=== PATIENT | female | born 1955 | race Caucasian/White ===

== ENCOUNTER → 2021-08-08 | Outpatient (CLI) | payer MEDICARE, SELFPAY ==
--- NOTE | 2021-08-08 13:22 | US_ITS ---
STUDY: RENAL ULTRASOUND - COMPLETE REASON FOR EXAM: Female, 66 years old. STONES ABD AND BACK PAIN TECHNIQUE: Ultrasound evaluation of the kidneys was performed with real-time and static aguila-scale imaging. COMPARISON: None. FINDINGS: RIGHT KIDNEY: Normal location of the right kidney, which is normal in size. The right kidney measures 10 x 5.3 cm. There is a normal cortex of the right kidney. The renal cortex measures 1 cm. There is no right renal mass or cyst. There are no right renal calculi. There is no right hydronephrosis. DISTAL RIGHT URETER: There is non-visualization of the distal right ureter. There is no demonstrated right ureterovesical junction calculus. There is a visualized right ureteral jet. LEFT KIDNEY: Normal location of the left kidney, which is normal in size. The left kidney measures 10.6 x 6.2 cm. There is a normal cortex of the left kidney. The renal cortex measures 1.4 cm. There is no left renal mass or cyst. There are no left renal calculi. There is no left hydronephrosis. DISTAL LEFT URETER: There is non-visualization of the distal left ureter. There is no demonstrated left ureterovesical junction calculus. There is a visualized left ureteral jet. AORTA: There is obscuration of the abdominal aorta by overlying bowel gas I.V.C.: The IVC is obscured. BLADDER: The distended urinary bladder has a volume of 213 ml. There is a normal wall thickness of the distended urinary bladder. There is no demonstrated mass within the urinary bladder. There are no demonstrated bladder calculi. US/Kidney and Bladder IMPRESSION: Normal ultrasound of the kidneys and urinary bladder. Electronically Signed: Clark Kathleen MD at 21:34 EDT ,
== END | disposition home or self-care (01) ==
PROVIDERS: Referring Provider Urology; Visit Provider Urology
DX: N20.0 Calculus of kidney (principal); R10.30 Lower abdominal pain, unspecified; M54.9 Dorsalgia, unspecified
CPT/HCPCS: 76770

== ENCOUNTER → 2024-06-30 | Outpatient (CLI) | payer MEDICARE, SELFPAY ==
--- NOTE | 2024-06-30 12:41 | US_ITS ---
PROCEDURE: KIDNEY AND BLADDER 06/30/2024 REASON FOR EXAM: STONES, LT FLANK PAIN TECHNIQUE: Bilateral renal ultrasound. COMPARISON: Prior study dated August 08, 2021. FINDINGS: Kidneys: Bilateral renal calculi. Meridian: No hydronephrosis. Cysts or Masses: No cysts or large solid renal masses. RIGHT Kidney Size: 10 cm x 4.5 cm x 4.7 cm Volume: 382.3 mL Cortical Thickness (if discernible): 1.3 cm (>6mm is normal) There are 3 nonobstructive intrarenal calculi. The largest measures 5 mm. LEFT Kidney Size: 10.3 cm x 5 cm x 5.6 cm Volume: 153.08 mL Cortical Thickness (if discernible): 1.6 cm (>6mm is normal) There is an 8 mm nonobstructive calculus. US/Kidney and Bladder IMPRESSION: Small bilateral nonobstructive intrarenal calculi. Reading Location: [id number]
== END | disposition home or self-care (01) ==
LOC: US 12:37
PROVIDERS: Referring Provider Urology; Visit Provider Urology
DX: N20.0 Calculus of kidney (principal); R10.9 Unspecified abdominal pain
CPT/HCPCS: 76770

== ENCOUNTER → 2024-07-24 | Outpatient (CLI) | payer MEDICARE, SELFPAY ==
--- NOTE | 2024-07-24 18:08 | CT_ITS ---
PROCEDURE: ABDOMEN/PELVIS WITHOUT CONT 07/24/2024 REASON FOR EXAM: KIDNEY STONES TECHNIQUE: Abdomen and pelvis CT without intravenous contrast. Noncontrast technique limits evaluation of the abdominal and pelvic viscera. Coronal and Sagittal reconstruction series were provided. One or more dose reduction techniques were used (e.g., Automated exposure control, adjustment of the mA and/or kV according to patient size, use of iterative reconstruction technique). PATIENT PREPARATION: Per protocol ORAL CONTRAST TYPE: None. COMPARISON: None FINDINGS: Limited sections of the lung bases demonstrate no focal pulmonary mass. The liver, spleen, pancreas, both kidneys, and both adrenal glands demonstrate no acute findings. 2 mm stone within the right UVJ which may be partially obstructive or nonobstructive. No significant upstream hydronephrosis is noted. Scattered nonobstructive stones are noted within bilateral kidneys. Hepatomegaly to 18.3 cm. The gallbladder is unremarkable. The stomach is unremarkable. The aorta and IVC demonstrate no acute findings. Mild atherosclerosis of the abdominal vasculature. There is no free air, free fluid or intestinal obstruction. The small bowel loops are not dilated. The appendix is not clearly identified, although there are no secondary signs of appendicitis. No bowel obstruction. The pelvic structures are intact. There is no solid pelvic mass. The urinary bladder is nondistended. Visualized osseous structures demonstrate no acute abnormality. Moderate to extensive multilevel degenerative changes of the lumbar spine. Small fat containing umbilical hernia. CT/Abdomen/Pelvis without Cont IMPRESSION: 2 mm stone within the right UVJ which may be partially obstructive or nonobstru ctive. No significant upstream hydronephrosis is noted at this time. Scattered nonobstructive stones are noted within bilateral kidneys. Reading Location: [id number]
--- OUTSIDE RECORDS SUMMARY | 2024-07-24 22:17 | XMS RPT_ITS | CCD ---
Author Organization [facility] Care Team Providers Care Slip Cover Cutter Name Role Phone Mimi Weiss MD Primary Care Provider Aneudy Yeh MD, Nayana Sales Primary Care Provider Aneudy Yeh MD, Nayana Sales Primary Care Provider Aneudy Yeh MD, Nayana Sales Primary Care Provider [phone] LISA GARCÍA Attending Unavailable AL SAIF, ALAA Primary Care Unavailable Nayana Hoang MD Primary Care Provider [phone] AL GABBY, ALAA Primary Care Provider [phone] Dr. Guerda Null MD Attending Provider Dr. Guerda Null MD Referring Provider MIMI IVY Attending Unavailable AL SAIF, ALAA MAHDI Primary Care Unavailable SELF Referring Unavailable AL SAIF, ALAA MAHDI Primary Care Unavailable JIM WASHINGTON JR Attending Unavailable Guerda Null Referring Unavailable Guerda Null Attending Unavailable KALLASH, MAHMOYOLIS Primary Care Unavailable EUGENIAASH, MAHMOUD Primary Care Unavailable Guerda Null Referring Unavailable Guerda Null Attending Unavailable Allergies Allergy Classification Reported Allergen(s) Allergy Type Date of Onset Reaction(s) Facility (9 sources) Non-steroidal anti-inflammatory agent; Translations: [NSAIDS (NON-STEROIDAL ANTI-INFLAMMATORY DRUG)] Drug Allergy [address] [facility] (20 sources) Sulfonamides (Antibiotic); Translations: [SULFA (SULFONAMIDE ANTIBIOTICS)] Drug Allergy [address] [facility] (20 sources) Aspirin; Translations: [ASPIRIN] Drug Allergy 2 Other: See Comments [facility] (20 sources) Morphine; Translations: [MORPHINE] Drug Allergy 2 Other: See Comments [facility] (20 sources) Non-steroidal anti-inflammatory agent Drug Allergy [address] [facility] (20 sources) Adhesive Tape-Silicones; Translations: [ADHESIVE TAPE-SILICONES] Drug Allergy [address] [facility] (20 sources) HMG-CoA reductase inhibitor; Translations: [OEMLIZY-GED-HFK REDUCTASE INHIBITORS] Drug Allergy 3 GI Upset, Myalgia [facility] (20 sources) colesevelam; Translations: [COLESEVELAM] Drug Allergy [address] [facility] (20 sources) ezetimibe; Translations: [EZETIMIBE] Drug Allergy 6 Other: See Comments [facility] (20 sources) Fenofibrate; Translations: [FENOFIBRATE NANOCRYSTALLIZED] Drug Allergy [address] [facility] Medications Current Medications Medication Drug Class(es) Dates Sig (Normalized) Sig (Original) amoxicillin 500 mg oral tablet (1 source) Penicillin-class Antibacterial Start: 07-03-2022 End: 07-10-2022 take 1 tablet by mouth three times daily Amoxicillin 500 mg tablet Indications: URI, acute Take 1 tablet by mouth three times daily for 7 days. 21 tablet 0 07/03/2022 07/10/2022 Active Comment on above: Take 1 tablet by [facility] three times daily for 7 days. amoxicillin 875 mg / clavulanate 125 mg oral tablet (7 sources) Penicillin-class Antibacterial Start: 06-05-2024 End: 06-12-2024 take 1 tablet by mouth every twelve hours amoxicillin-clavu lanate potassium (AUGMENTIN) 875-125 mg per tablet Indications: Bacterial sinusitis Take 1 tablet by mouth every 12 hours for 7 days. 14 tablet 06/05/2024 06/12/2024 Active Start: 03-24-2023 End: 04-03-2023 take 1 tablet by mouth twice daily amoxicillin-clavulanate potassium (AUGMENTIN) 875-125 mg per tablet Indications: Sinobronchitis Take 1 tablet by mouth two times a day for 10 days. 20 tablet 0 03/24/2023 04/03/2023 Active Start: 04-10-2022 End: 04-20-2022 take 1 tablet by mouth every twelve hours amoxicillin-clavulanic acid (AUGMENTIN) 875-125 mg per tablet Take 1 tablet by mouth every 12 hours for 10 days. 20 tablet 0 04/10/2022 04/20/2022 Comment on above: Take 1 tablet by julisa th every 12 hours for 10 days. Take 1 tablet by julisa th two times a day for 10 days. bacillus coagulans [id number] unt / inulin 250 mg oral capsule (20 sources) take 1 tablet by mouth once daily at bedtime Bacillus coagulans-Inulin (PROBIOTIC WITH PREBIOTIC) 1 billion-250 cell-mg cap Take 1 tablet by mouth daily at bedtime. Active Bacillus coagula ns-Inulin (PROBIOTIC WITH PREBIOTIC) 1 billion-250 cell-mg cap Take by mouth. 0 Active Comment on above: Take by mouth. Take 1 tablet by julisa th daily at bedtime. benzonatate 200 mg oral capsule (6 sources) Non-narcotic Antitussive Start: 5 take 1 capsule by mouth three times daily as needed Benzonatate 200 mg capsule Indications: Influenza Take 1 capsule by mouth three times a day as needed. 30 capsule 04/07/2024 Active buPROPion hydrochloride 100 mg oral tablet (20 sources) Aminoketone Start: 4 End: 4 take 1 tablet by mouth twice daily buPROPion (WELLBUTRIN) 100 mg tablet Indications: Major depressive disorder, recurrent severe without psychotic features (HCC) TAKE 1 TABLET BY MOUTH TWICE DAILY 180 tablet 3 10/16/2023 Active Start: 03-20-2022 End: 03-20-2022 take 1 tablet by mouth twice daily buPROPion (WELLBUTRIN) 100 mg tablet Indications: Anxiety with depression Take 1 tablet by mouth twice daily. 180 tablet 3 03/20/2022 Active Comment on above: Take 100 mg by mouth twice daily. Take 1 tablet by julisa th twice daily. Take 1 tablet by julisa th two times a day. cyclobenzaprine hydrochloride 10 mg oral tablet (20 sources) Muscle Relaxant Start: 04-02-19 24 End: 01-05-20 25 take 1 tablet by mouth three times daily as needed cyclobenzaprine (FLEXERIL) 10 mg tablet Indications: Radiculopathy, lumbar region Take 1 tablet by mouth three times a day as needed. 90 tablet 2 02/25/2024 Active Start: 02-21-2022 End: 08-20-2022 take 1 tablet by mouth three times daily as needed cyclobenzaprine (FLEXERIL) 10 mg tablet Indications: Radiculopathy, lumbar region Take 1 tablet by mouth three times daily as needed. 90 tablet 2 02/21/2022 08/20/2022 Active End: 09-19-2021 take 1 tablet by mouth every eight hours as needed cyclobenzaprine (FLEXERIL) 10 mg tablet Take 10 mg by mouth three times daily as needed. 0 09/19/2021 Discontinued Comment on above: Take 10 mg by mouth three times daily as needed. Take 1 tablet by julisa th three times daily as needed. Take 1 tablet by julisa th three times a day as needed. 12 hr dextromethorphan hydrobromide 30 mg / guaiFENesin 600 mg extended release oral tablet (1 source) Uncompetitive U-zwemgw-G-aspartate Receptor Antagonist, Sigma-1 Agonist Start: End: take 1 tablet by mouth twice daily dextromethorphan-guai FENesin (MUCINEX DM) 30-600 mg per tablet Indications: Sinobronchitis Take 1 tablet by mouth two times a day for 10 days. 20 tablet 0 03/24/2023 04/03/2023 Active Comment on above: Take 1 tablet by julisa th two times a day for 10 days. diclofenac sodium 0.01 mg/mg topical gel (20 sources) Nonsteroidal Anti-inflammatory Drug diclofenac sodium 1 % kit Apply to affected area as needed. FOR ARTHRITIS Active Comment on above: Apply to affected ar ea. Apply to affected ar ea as needed. FOR ARTHRITIS ergocalciferol 1.25 mg oral capsule (20 sources) Provitamin D2 Compound Start: End: take 1 capsule by mouth every other week VITAMIN D2 1,250 mcg (50,000 unit) capsule Indications: Vitamin D deficiency TAKE 1 CAPSULE BY MOUTH EVERY 2 WEEKS 8 capsule 2 05/23/2024 Active Start: 04-20-2022 End: 06-21-2023 take 1 capsule by mouth once VITAMIN D2 1,250 mcg (50, 000 unit) capsule Indications: Vitamin D deficiency TAKE 1 CAPSULE BY MOUTH ONCE WEEKLY EVERY SUNDAY 13 capsule 3 06/21/2022 06/21/2023 Discontinued Start: 08-15-2021 End: 08-20-2022 take 1 capsule by mouth every other week ergocalciferol 50,000 unit capsule (VITAMIN D2, DRISDOL) Indications: Vitamin D deficiency Take 1 capsule by mouth every 2 weeks. 6 capsule 1 02/21/2022 04/19/2022 Discontinued Start: 08-12-2021 End: 11-10-2021 take 1 capsule by mouth every week ergocalciferol 50,000 unit capsule (VITAMIN D2, DRISDOL) Take 1 capsule by mouth one time a week. 13 capsule 0 08/12/2021 08/15/2021 Discontinued Comment on above: Take 50,000 Units by mouth once each week. Take 1 capsule by mo ut one time a week. Take 1 capsule by mo ut every 2 weeks. Take 1 capsule by mo ut one time a week. Takes every Sunday TAKE 1 CAPSULE BY MO UT ONCE WEEKLY EVERY SUNDAY liothyronine sodium 0.005 mg oral tablet (20 sources) l-Triiodothyronin e Start: take 3 tablets by mouth once daily in the morning liothyronine (CYTOMEL) 5 mcg tablet TAKE 3 TABLETS BY MOUTH DAILY IN THE MORNING 300 tablet 2 06/27/2024 Active Start: 02-07-2023 End: 06-27-2024 take 3 tablets by mouth once daily in the morning liothyronine (CYTOMEL) 5 mcg tablet TAKE 3 TABLETS BY MOUTH DAILY IN THE MORNING 300 tablet 2 10/18/2023 06/27/2024 Discontinued Start: 10-03-2021 End: 04-01-2022 take 3 tablets by mouth once daily in the morning liothyronine (CYTOMEL) 5 mcg tablet TAKE 3 TABLETS BY MOUTH DAILY IN THE MORNING 270 tablet 3 03/17/2022 Active End: 09-30-2021 take 1 tablet by mouth once daily liothyronine (CYTOMEL) 5 mcg tablet Take 5 mcg by mouth once daily. 0 09/30/2021 Discontinued Comment on above: Take 5 mcg by mouth once daily. Take 3 tablets by mo uth once daily. Take 3 Tablets In the Morning TAKE 3 TABLETS BY MO UTH DAILY IN THE MORNING 24 hr metoprolol succinate 25 mg extended release oral tablet (20 sources) beta-Adrenergic Juan Start: 06-27-2024 take 1 tablet by mouth once daily metoprolol succinate ER (TOPROL XL) 25 mg 24 hr tablet Indications: Hypertension, essential TAKE 1 TABLET BY MOUTH ONCE DAILY 100 tablet 2 06/27/2024 Active Start: 02-06-2023 End: 04-15-2024 take 1 tablet by mouth once daily metoprolol succinate ER (TOPROL XL) 25 mg 24 hr tablet Indications: Hypertension, essential TAKE 1 TABLET BY MOUTH ONCE DAILY 100 tablet 2 10/18/2023 Active Start: 07-28-2022 take 1 tablet by julisa th once daily metoprolol succinate ER (TOPROL XL) 25 mg 24 hr tablet Indications: Hypertension, essential Take 1 tablet by mouth once daily. 45 tablet 3 07/28/2022 Active Start: 03-20-2022 End: 03-20-2022 take 0.5 tablet by mouth once daily metoprolol succinate ER (TOPROL XL) 25 mg 24 hr tablet Indications: Hypertension, essential Take 0.5 tablets by mouth once daily. 45 tablet 3 03/20/2022 Active take 1 tablet by julisa th once daily metoprolol succinate ER (TOPROL XL) 25 mg 24 hr tablet Take 25 mg by mouth once daily. 0 Active Comment on above: Take 25 mg by mouth once daily. Take 12.5 mg by mout h once daily. Take 0.5 tablets by mouth once daily. Take 1 tablet by julisa th once daily. TAKE ONE-HALF TABLET BY MOUTH ONCE DAILY 24 hr venlafaxine 75 mg extended release oral capsule (20 sources) Serotonin and Norepinephrine Reuptake Inhibitor Start: 04-11-19 End: 02-22-19 take 3 capsules by mouth once daily venlafaxine ER (EFFEXOR XR) 75 mg 24 hr capsule Indications: Anxiety with depression Take 3 capsules by mouth once daily. 270 capsule 3 01/21/2024 Active Start: 04-24-2022 End: 2022 take 1 capsule by mouth three times daily, then take 3 capsules by mouth once daily venlafaxine ER (EFFEXOR XR) 75 mg 24 hr capsule Indications: Anxiety with depression Take 1 capsule by mouth three times daily. Take 3 Capsules Once Daily 270 capsule 1 04/24/2022 05/26/2022 Discontinued (Adjust Sig - Block E-Cancel) Start: 04-20-2022 End: 04-21-2022 take 1 capsule by mouth three times daily venlafaxine ER (EFFEXOR XR) 75 mg 24 hr capsule Indications: Anxiety with depression Take 1 capsule by mouth three times daily. 270 capsule 3 04/20/2022 04/21/2022 Discontinued Start: 03-21-2022 End: 10-15-2022 take 3 capsules by mouth once daily, then take 3 capsules by mouth once daily venlafaxine ER (EFFEXOR XR) 75 mg 24 hr capsule Indications: Anxiety with depression Take 3 capsules by mouth once daily. Take 3 Capsules Once Daily 270 capsule 3 05/26/2022 Active Start: 03-20-2022 End: 03-21-2022 venlafaxine XR (EFFEXOR XR) 75 mg tr24 Indications: Anxiety with depression Take 3 tablets by mouth once daily. Taking 3 at once 270 tablet 3 03/20/2022 03/21/2022 Discontinued Comment on above: Take 225 mg by mouth once daily. Taking 3 at once Take 3 tablets by mo uth once daily. Taking 3 at once Take 1 capsule by mo uth once daily. Take 1 capsule by mo uth three times daily. Take 1 capsule by mo uth three times daily. Take 3 Capsules Once Daily Take 3 capsules by m outh once daily. Take 3 Capsules Once Daily TAKE 3 CAPSULES BY M OUTH ONCE DAILY Completed/Discontinued Medications Medication Drug Class(es) Dates Sig (Normalized) Sig (Original) ALPRAZolam 0.25 mg oral tablet (5 sources) Benzodiazepine End: 09-19-2021 take 1 tablet by mouth every twenty-four hours as needed ALPRAZolam (XANAX) 0.25 mg tablet Take 0.25 mg by mouth at bedtime as needed. 0 09/19/2021 Discontinued Comment on above: Take 0.25 mg by mout h at bedtime as needed. aspirin 81 mg delayed release oral tablet (20 sources) Platelet Aggregation Inhibitor, Nonsteroidal Anti-inflammatory Drug End: 04-07-2024 take 1 tablet by mouth once daily aspirin, enteric coated (ASPIRIN, ENTERIC COATED) 81 mg EC tablet Take 81 mg by mouth once daily. WILL VERIFY WITH HER PCP WHEN TO STOP- will look at instructions that are at home 04/07/2024 Discontinued (Discontinued by Patient) Comment on above: Take 81 mg by mouth once daily. Take 81 mg by mouth once daily. WILL VERIFY WITH HER PCP WHEN TO STOP- will look at instructions that are at home baclofen 10 mg oral tablet (20 sources) gamma-Aminobutyric Acid-ergic Agonist End: 07-03-2022 take 1 tablet by mouth once daily at bedtime baclofen (LIORESAL) 10 mg tablet Take 10 mg by mouth daily at bedtime. 0 07/03/2022 Discontinued (Changing Therapy/Dosage Form) End: 02-21-2022 take 1 tablet by mouth three times daily baclofen (LIORESAL) 10 mg tablet Take 10 mg by mouth three times daily. 0 02/21/2022 Discontinued (Changing Therapy/Dosage Form) Comment on above: Take 10 mg by mouth three times daily. Take 10 mg by mouth daily at bedtime. diclofenac-met salicyl-menthol (DICLOPR) 1-30-10 % combo pack (4 sources) End: 02-21-2022 diclofenac-met salicyl-menthol (DICLOPR) 1-30-10 % combo pack Apply to affected area. Apply diclofenac topical gel to the affected area daily as directed. Apply methyl salicylate-menthol cream to the affected area as directed. 0 02/21/2022 Discontinued (Changing Therapy/Dosage Form) diclofenac-met s alicyl-menthol (DICLOPR) 1-30-10 % combo pack Apply to affected area. Apply diclofenac topical gel to the affected area daily as directed. Apply methyl salicylate-menthol cream to the affected area as directed. 0 Active Comment on above: Apply to affected ar ea. Apply diclofenac topical gel to the affected area daily as directed. Apply methyl salicylate-menthol cream to the affected area as directed. 0.5 ml dulaglutide 3 mg/ml auto-injector (9 sources) GLP-1 Receptor Agonist Start: 2022 End: 2023 inject 1 mL by subcutaneous injection every week TRULICITY 1.5 mg/0.5 mL pen injector Indications: Morbid obesity with BMI of 40.0-44.9, adult (HCC) INJECT THE CONTENTS OF ONE PEN SUBCUTANEOUSLY WEEKLY DIRECTED 2 mL 11 10/24/2022 05/15/2023 Discontinued (Changing Therapy/Dosage Form) Comment on above: Inject 1.5 mg subcut aneously one time a week. INJECT THE CONTENTS OF ONE PEN SUBCUTANEOUSLY WEEKLY DIRECTED Esomeprazole (5 sources) Proton Pump Inhibitor End: 2021 ESOMEPRAZOLE MAGNESIUM (NEXIUM ORAL) Take by mouth. 0 09/19/2021 Discontinued ESOMEPRAZOLE MAG NESIUM (NEXIUM ORAL) Take by mouth. 0 Active Comment on above: Take by mouth. FLAXSEED OIL ORAL (5 sources) End: 09-19-2021 FLAXSEED OIL ORAL Take by [facility]. 0 09/19/2021 Discontinued FLAXSEED OIL ORA L Take by mouth. 0 Active Comment on above: Take by mouth. gabapentin 300 mg oral capsule (5 sources) Anti-epileptic Agent End: 09-20-19 take 1 capsule by mouth three times daily gabapentin (NEURONTIN) 300 mg capsule Take 300 mg by mouth three times daily. 0 09/19/2021 Discontinued Comment on above: Take 300 mg by mouth three times daily. Potassium Chloride (18 sources) take 1620 mg by mouth twice daily POTASSIUM CHLORIDE ORAL Take 1,620 mg by mouth twice daily. 0 Active Comment on above: Take 1,620 mg by julisa twice daily. potassium citrate 15 meq extended release oral tablet (1 source) End: 04-03-19 take 1 tablet by mouth twice daily Potassium Citrate 15 mEq TbER Take 1 tablet by mouth twice daily. KIDNEY STONES 0 04/03/2022 Discontinued Comment on above: Take 1 tablet by julisa twice daily. KIDNEY STONES pravastatin sodium 20 mg oral tablet (11 sources) HMG-CoA Reductase Inhibitor Start: 04-13-19 End: 07-04-19 take 1 tablet by mouth once daily at bedtime pravastatin (PRAVACHOL) 20 mg tablet Indications: Mixed hyperlipidemia Take 1 tablet by mouth daily at bedtime. 90 tablet 4 04/13/2022 07/03/2022 Discontinued (Changing Therapy/Dosage Form) Comment on above: Take 1 tablet by julisa th daily at bedtime. temazepam 15 mg oral capsule (5 sources) Benzodiazepine End: 09-20-19 temazepam (RESTORIL) 15 mg cap Take by mouth at bedtime as needed. 0 09/19/2021 Discontinued Comment on above: Take by mouth at bed time as needed. topiramate 50 mg oral tablet (20 sources) Start: 12-20-19 take 1 tablet by mouth once daily in the morning topiramate (TOPAMAX) 50 mg tablet Take 50 mg by mouth every morning. 0 12/19/2021 Active take 1 tablet by julisa th once daily at bedtime topiramate (TOPAMAX) 100 mg tablet Take 100 mg by mouth daily at bedtime. 0 Active End: 02-21-2022 topiramate (TOPAMAX) 15 mg c apsule Take 250 mg by mouth twice daily. As directed. Shell be taking 200mg in 1 week 0 02/21/2022 Discontinued (Changing Therapy/Dosage Form) take 1 tablet by julisa th twice daily topiramate (TOPAMAX) 100 mg tablet Take 100 mg by mouth twice daily. 0 Active take 1 capsule by mo uth twice daily topiramate (TOPAMAX) 15 mg capsule Take 15 mg by mouth twice daily. 0 Active Comment on above: Take 15 mg by mouth twice daily. Take 250 mg by mouth twice daily. As directed. Shell be taking 200mg in 1 week Take 100 mg by mouth twice daily. Take 50 mg by mouth every morning. Take 100 mg by mouth daily at bedtime. ubidecarenone 200 mg oral capsule (19 sources) Start: 3 take 1 capsule by mouth once daily Coenzyme Q10 (CO Q-10) 200 mg cap Indications: Mixed hyperlipidemia , Myalgia due to statin Take 1 capsule by mouth once daily. 90 capsule 4 04/13/2022 Active take 1 tablet by mouth once [place] y ubidecarenone (COENZYME Q10) 100 mg tab Take 1 Each by mouth once daily. Active Comment on above: Take 1 capsule by mo uth once daily. Problems Active Problems Problem Classification Problem Date Documented Date Episodic/Chronic Anxiety disorders (8 sources) Mixed anxiety and depressive disorder; Translations: [Other specified anxiety disorders] Chronic Bacterial infection; unspecified site (1 source) Other specified bacterial agents as the cause of diseases classified elsewhere; Translations: [Bacterial sinusitis] Onset: 5 Episodic Calculus of urinary tract (20 sources) H/O: urinary stone; Translations: [Personal history of urinary calculi] Onset: 2 02-21-2022 Episodic Chronic kidney disease (20 sources) Chronic kidney disease stage 3A ; Translations: [Stage 3a chronic kidney disease (HCC)] Onset: 3 Chronic Disorders of lipid metabolism (20 sources) Hyperlipidemia; Translations: [Hyperlipidemia, unspecified] Onset: 6 Chronic Disorders of teeth and jaw (2 sources) Jaw pain; Translations: [Jaw pain] Onset: 5 06-05-2024 Episodic Essential hypertension (20 sources) Hypertensive disorder; Translations: [Essential (primary) hypertension] Onset: 6 Chronic Headache; including migraine (20 sources) Migraine; Translations: [Migraine, unspecified, not intractable, without status migrainosus] Onset: 6 02-21-2022 Chronic Immunizations and screening for infectious disease (7 sources) Patient encounter status; Translations: [Encounter for immunization] Episodic Inflammation; infection of eye (except that caused by tuberculosis or sexually transmitteddisease) (20 sources) Chronic allergic conjunctivitis; Translations: [Other chronic allergic conjunctivitis] Onset: 6 02-21-2022 Chronic Influenza (2 sources) Influenza; Translations: [Influenza due to unidentified influenza virus with other respiratory manifestations] Onset: 5 04-07-2024 Episodic Mood disorders (20 sources) Severe recurrent major depression without psychotic features; Translations: [Major depressive disorder, recurrent severe without psychotic features] Onset: 6 02-21-2022 Chronic Nonspecific chest pain (1 source) Chest pain; Translations: [Chest pain, unspecified] Episodic Nutritional deficiencies (20 sources) Vitamin D deficiency; Translations: [Vitamin D deficiency, unspecified] Onset: 6 Chronic Osteoarthritis (20 sources) Osteoarthritis of multiple joints ; Translations: [Polyosteoarthritis, unspecified] Onset: 6 Chronic Other acquired deformities (1 source) Scoliosis deformity of spine; Translations: [Scoliosis, unspecified] Chronic Other bone disease and musculoskeletal deformities (20 sources) Idiopathic scoliosis; Translations: [Other idiopathic scoliosis, site unspecified] Onset: 6 02-21-2022 Chronic Other connective tissue disease (1 source) Myalgia caused by statin; Translations: [Myalgia, unspecified site] Episodic Other nutritional; endocrine; and metabolic disorders (1 source) Morbid obesity; Translations: [Morbid (severe) obesity due to excess calories] Chronic Other nutritional; endocrine; and metabolic disorders (20 sources) Body mass index 40+ - severely obese; Translations: [Morbid (severe) obesity due to excess calories] Onset: 2 Chronic Other nutritional; endocrine; and metabolic disorders (2 sources) Obesity, unspecified; Translations: [Obesity, unspecified] Onset: 3 Chronic Other screening for suspected conditions (not mental disorders or infectious disease) (2 sources) Electrocardiogram abnormal; Translations: [Abnormal electrocardiogram [ECG] [EKG]] Episodic Other upper respiratory infections (2 sources) Bacterial sinusitis; Translations: [Chronic sinusitis, unspecified] Onset: 5 06-05-2024 Chronic Other upper respiratory infections (1 source) Acute upper respiratory infection; Translations: [Acute upper respiratory infection, unspecified] Episodic Residual codes; unclassified (20 sources) Obstructive sleep apnea syndrome; Translations: [Obstructive sleep apnea (adult) (pediatric)] Onset: 2 Chronic Residual codes; unclassified (1 source) Edema of face ; Translations: [Localized edema] 06-05-2024 Episodic Residual codes; unclassified (1 source) Localized edema; Translations: [Edema of face] Onset: 5 Episodic Thyroid disorders (20 sources) Acquired hypothyroidism; Translations: [Hypothyroidism, unspecified] Onset: 6 Chronic Past or Other Problems Problem Classification Problem Date Documented Date Episodic/Chronic Diabetes mellitus without complication (20 sources) Prediabetes; Translations: [Prediabetes] Onset: 12-15-2020 Episodic Esophageal disorders (20 sources) Gastroesophageal reflux disease; Translations: [Gastro-esophageal reflux disease without esophagitis] Onset: 10-21-2015 Resolved: 08-14-2022 02-21-2022 Chronic Other inflammatory condition of skin (20 sources) Rosacea; Translations: [Rosacea, unspecified] Onset: 02-28-2018 Resolved: 08-14-2022 02-21-2022 Chronic Other lower respiratory disease (20 sources) Dyspnea on exertion; Translations: [Other forms of dyspnea] Onset: 04-13-2022 Resolved: 07-03-2022 04-13-2022 Episodic Other non-traumatic joint disorders (20 sources) Shoulder joint pain; Translations: [Pain in left shoulder] Onset: 04-13-2022 04-13-2022 Episodic Other skin disorders (20 sources) Seborrheic keratosis; Translations: [Other seborrheic keratosis] Onset: 10-21-2015 02-21-2022 Episodic Residual codes; unclassified (20 sources) History of operative procedure on shoulder; Translations: [Other specified postprocedural states] Onset: 02-02-2017 02-21-2022 Episodic Spondylosis; intervertebral disc disorders; other back problems (20 sources) Lumbar radiculopathy; Translations: [Radiculopathy, lumbar region] Onset: 12-13-2015 02-15-2021 Episodic Unclassified (1 source) Patient encounter status 06-03-2024 Results Test Name Value Interpretation Reference Range Facility [facility] [address], [place] [address] [facility] MR#: [id number] Acct: [id number] Name: NEVILLE PATEL Rep #: [id number] : 1955 F 68 From: Cam [place] MD PCP: NAYANA HOANG Status: REG CLI Study: Kidney and Bladder Date of Exam: 06/30/24 Exam# [id number] Ordering Dr: Guerda Null MD PROCEDURE: KIDNEY AND BLADDER 06/30/2024 REASON FOR EXAM: STONES, LT FLANK PAIN TECHNIQUE: Bilateral renal ultrasound. COMPARISON: Prior study dated August 08, 2021. FINDINGS: Kidneys: Bilateral renal calculi. [place]: No hydronephrosis. Cysts or Masses: No cysts or large solid renal masses. RIGHT Kidney Size: 10 cm x 4.5 cm x 4.7 cm Volume: 382.3 mL Cortical Thickness (if discernible): 1.3 cm (>6mm is normal) There are 3 nonobstructive intrarenal calculi. The largest measures 5 mm. LEFT Kidney Size: 10.3 cm x 5 cm x 5.6 cm Volume: 153.08 mL Cortical Thickness (if discernible): 1.6 cm (>6mm is normal) There is an 8 mm nonobstructive calculus. US/Kidney and Bladder IMPRESSION: Small bilateral nonobstructive intrarenal calculi. Reading Location: [id number] CC: NAYANA HOANG; Dr. Guerda Null MD Operations Manager Station: Signed Normal [facility] CNOVon 06-05-2024 CNOV Office Visit ([facility] ) NEVILLE PATEL ([id number]) 1955 F Date Time Provider Department 06/05/24 6:50 PM JIM WASHINGTON JR [facility] During your visit today, we recorded the following information about you: Temperature Pulse Respiration Blood pressure 98.4 degrees 102/minute 18/minute 138/72 Weight 111.1 kg Jim Washington Jr., CELL TENDER.NIGHT CLEANER 06/05/2024 7:41 PM Signed Take medications as prescribed. Follow-up with PCP or return if symptoms do not resolve visit Urgent Care. Jim Washington Jr., CELL TENDER.NIGHT CLEANER 06/05/2024 8:26 PM Signed [facility] Subjective Neville Patel is a 68 year old female. Patient presents with: Sore Throat: Sore throat x 3 days, right side of face swelling today Sore Throat Sore Throat and Ear Pain: - Sore throat and bilateral ear pain onset prior to facial swelling. - Believes ear pain is secondary to throat and sinus issues; denies ear infection. - Denies eye pain, redness, or watering. - Denies fever; baseline temperature is 96.5?F. Facial Swelling: - Noticed a lump on the face today, initially the size of a quarter, now extending down the face. - Swelling is hard and causing discomfort with glasses. - Denies trauma or injury to the eye. - Applied ice with no relief. - Denies tooth pain; applied Anbesol to upper gums without effect. - Recent history of influenza A. - History of jaw surgeries with screws in place. Review of Systems HENT: Positive for sore throat. Constitutional: (+) fever Head: (+) facial swelling Eyes: (-) eye pain, (-) eye redness, (-) tearing Ears/Nose/Mouth/Throat: (+) ear pain, (+) sore throat, (+) sinus discomfort, (-) tooth pain Objective BP 138/72 Pulse 102 Temp 36.9 ?C (98.4 ?F) Resp 18 Wt 111.1 kg (245 lb) SpO2 97% BMI 47.85 kg/m? Physical Exam General: No acute distress. HEENT: Bilateral external auditory canals with cerumen, unable to visualize tympanic membrane on one side; tonsils hypertrophied and erythematous without exudate; hard, tender swelling palpated on face; clear rhinorrhea; sclerae anicteric. CV: Regular rhythm, no murmurs, rubs, or gallops. Resp: Clear to auscultation bilaterally. Abd: Non-tender, normal bowel sounds. Assessment AND Plan Bacterial sinusitis Based on examination I diagnosed patient with a bacterial sinusitis. I would consider the facial edema secondary to an infection in one of the teeth in the right upper jaw. I prescribed patient Augmentin as this will cover that area and patient informed to follow-up with her PCP if symptoms do not improve any severe symptoms go immediately to the emergency room. Orders: amoxicillin-clavulanate potassium (AUGMENTIN) 875-125 mg per tablet; Take 1 tablet by mouth every 12 hours for 7 days. Jaw pain, non-TMJ { and Recording using [employer] software for draft documentation of the visit was discussed with the patient/authorized personal financial representative; all questions welcomed and answered. Patient/authorized personal financial representative agreed to proceed Differential Diagnoses - Sinusitis is more likely for the following reason(s): suggested by HANDP Disposition The patient was discharged. Procedures Referring Provider: SELF [200] Allergies As of Date: 06/05/2024 Noted Allergy Reaction ADHESIVE TAPE-SILICONES 09/19/2021 2 - Rash Comments: Rash ASPIRIN 09/19/2021 14 - Other: See Comments Comments: Upset stomach, has to take enteric aspirin. COLESEVELAM 10/21/2015 8 - GI Upset EZETIMIBE 10/21/2015 14 - Other: See Comments FENOFIBRATE NANOCRYSTALLIZED 10/21/2015 8 - GI Upset MORPHINE 09/19/2021 14 - Other: See Comments Comments: Flushing NSAIDS (NON-STEROIDAL ANTI-INFLAM*12/13/2015 8 - GI Upset [id number] REDUCTASE INHIBIT*04/03/2022 8 - GI Upset 17 - Myalgia SULFA (SULFONAMIDE ANTIBIOTICS) 12/13/2015 11 - Vomiting Date Reviewed: 06/05/2024 Reviewed by: Jim Washington Jr., CELL TENDER.NIGHT CLEANER - Fully Assessed Reason for Visit: Sore Throat [200] Cmt: Sore throat x 3 days, right side of face swelling today Primary Visit Diagnosis:Bacterial sinusitis [J32.9, B96.89] Other Visit Diagnoses:Jaw pain, non-TMJ [R68.84] Edema of face [R60.0] Order(s):amoxicillin-clavulanate potassium (AUGMENTIN) 875-125 mg per tabletTake 1 tablet by mouth every 12 hours for 7 days.Disp: 14 tabletRfl: 0 Prescriptions as of 06/05/2024 - amoxicillin-clavulanate potassium (AUGMENTIN) 875-125 mg per tablet Take 1 tablet by mouth every 12 hours for 7 days. - VITAMIN D2 1,250 mcg (50,000 unit) capsule TAKE 1 CAPSULE BY MOUTH EVERY 2 WEEKS - ubidecarenone (COENZYME Q10) 100 mg tab Take 1 Each by mouth once daily. - Benzonatate 200 mg capsule Take 1 capsule by mouth three times a day as needed. - cyclobenzaprine (FLEXERIL) 10 mg tablet Take 1 tablet by mouth three times a day as needed. - venlafaxine ER (EFFEXOR XR) 75 mg 24 hr (more content not included)... [facility]: [id number] Author: COORDINATOR, MAMMOGRAPHY, ? Service: ? Author Type: Physician Type: Letter Filed: 04/25/2023 08:59 Note Text: April 25, 2023 PID: [id number] Neville Patel [address] [place] [address] Dear Ms. Patel, We are pleased to inform you that the results of your recent breast imaging exam on 04/25/2023 are normal. Early detection of cancer is very important. We also understand recommendations regarding breast cancer screening are controversial. Please discuss with your primary care provider which strategy is best for you and whether a mammogram is right for you. Your imaging studies and report will be kept on file at [facility] as part of your permanent medical record and are available for your continuing care. Thank you for allowing us to help in meeting your health care needs. Sincerely, Dr. De La Cruz Interpreting Radiologist [facility] (Normal over 40) Normal [facility] Breast Screeningon 2023 IMPRESSION: NEGATIVE There is no mammographic evidence of malignancy. A 1 year screening mammogram is recommended. Geneva schneider/shira:04/25/2023 08:59:44 Housekeeping/Laundry(s): Jessica Olson, [facility] letter sent: Normal over 40 Mammogram BI-RADS: 1 Negative Multiple national specialty organizations have released breast cancer screening guidelines for women at average risk for developing breast cancer - guidelines that are based on both evidence and opinion, yet differ on when to start and how often to screen for breast cancer. With representation from Breast Imaging, Internal Medicine, Women's Health, Family Medicine, and Medical/Surgical Oncology, the [facility] has carefully reviewed the data and reached the following consensus: 1) All women should engage in shared decision-making with their providers to decide when to start and how often to screen; 2) All women should have the opportunity to start screening mammography at age 40; 3) For women ages 45-55, we recommend annual screening mammograms; 4) For women ages 55 and over, we support both the transition from an annual to a biennial interval if this aligns more with patient's values and preferences, or continuation with annual screening; 5) All women should discuss with their providers when to stop screening mammograms. Operations Manager Station: Shira Transcribe Date/Time: Apr 25 2023 8:31A Dictated by : GENEVA DE LA CRUZ MD This examination was interpreted and the report reviewed and electronically signed by: GENEVA DE LA CRUZ MD on Apr 25 2023 8:59AM [facility] * * *Final Report* * * DATE OF EXAM: Apr 25 2023 8:49AM [facility] 05[facility] - [facility] SCREENING / PROCEDURE REASON: [id number] SCREENING MAMMOGRAM MICHAEL WITH CAD * * * * Physician Interpretation * * * * #[id number] - LINDA SCREENING BILATERAL DIGITAL SCREENING MAMMOGRAM WITH CAD: 04/25/2023 HISTORY: [id number] Screening Mammogram Michael With Cad. RESULT: TECHNIQUE: The study was acquired using full field digital technology and interpreted from soft copy. Current study was also evaluated with a Computer Aided Detection (CAD). Comparison is made to exams dated: 11/25/2019 mammogram and 09/08/2013 mammogram - [facility]. There are scattered areas of fibroglandular density. No significant masses, calcifications, or other findings are seen in either breast. There has been no significant interval change. [facility] Provider, Mami Raheem Alcazar - 04/25/2023 * * *Final Report* * * DATE OF EXAM: Apr 25 2023 8:49AM [facility] - [facility] SCREENING / PROCEDURE REASON: [id number] SCREENING MAMMOGRAM MICHAEL WITH CAD * * * * Physician Interpretation * * * * #[id number] - LINDA SCREENING BILATERAL DIGITAL SCREENING MAMMOGRAM WITH CAD: 04/25/2023 HISTORY: [id number] Screening Mammogram Michael With Cad. RESULT: TECHNIQUE: The study was acquired using full field digital technology and interpreted from soft copy. Current study was also evaluated with a Computer Aided Detection (CAD). Comparison is made to exams dated: 11/25/2019 mammogram and 09/08/2013 mammogram - [facility]. There are scattered areas of fibroglandular density. No significant masses, calcifications, or other findings are seen in either breast. There has been no significant interval change. IMPRESSION IMPRESSION: NEGATIVE There is no mammographic evidence of malignancy. A 1 year screening mammogram is recommended. Geneva De La Cruz M.D. er/penrad:04/25/2023 08:59:44 Housekeeping/Laundry(s): Jessica Olson, [facility] letter sent: Normal over 40 Mammogram BI-RADS: 1 Negative Multiple national specialty organizations have released breast cancer screening guidelines for women at average risk for developing breast cancer - guidelines that are based on both evidence and opinion, yet differ on when to start and how often to screen for breast cancer. With representation from Breast Imaging, Internal Medicine, Women's Health, Family Medicine, and Medical/Surgical Oncology, the [facility] has carefully reviewed the data and reached the following consensus: 1) All women should engage in shared decision-making with their providers to decide when to start and how often to screen; 2) All women should have the opportunity to start screening mammography at age 40; 3) For women ages 45-55, we recommend annual screening mammograms; 4) For women ages 55 and over, we support both the transition from an annual to a biennial interval if this aligns more with patient's values and preferences, or continuation with annual screening; 5) All women should discuss with their providers when to stop screening mammograms. Operations Manager Station: Shira Transcribe Date/Time: Apr 25 2023 8:31A Dictated by : GENEVA DE LA CRUZ MD This examination was interpreted and the report reviewed and electronically signed by: GENEVA DE LA CRUZ MD on Apr 25 2023 8:59AM EST [facility] Radiology Study observation (narrative) [facility] MG Breast ScreeningOrdered B y: Ccf Provider on 04-25-2023 [facility] 36on 02-01-2023 36 Called to schedule p t for 6 mo fu and pt declined stating she switched to a female provider. Normal [facility] Office Visiton 09-08-2022 Follow-up visit [id number] Randa Patel 1955 F Date Provider Department Center 09/08/2022 [id number]-EVQYVNALISA GARCÍA MG NEOCS G None Family History Problem Relation Age of Onset Coronary artery disease Mother Comments: adult onset DM, [place] Hypertension Mother Hyperlipidemia Mother Hyperlipidemia Father Stroke Father Heart attack Father Family Status - Relation Status Age at Mother Father Level of Service:39999 DE OFFICE/OUTPATIENT ESTABLISHED MOD MDM 30-39 MIN Reason for Visit and Comments: New Patient [542] - Follow up from stress test, HLP Normal [facility] PATINSon 09-08-2022 M[place] Please call our offi ce at [phone] if you have questions or if you are having worsening symptoms of chest pain, pressure, or heaviness, aching, tightness or discomfort, worsening shortness of breath, palpitations, lightheadedness, or loss of consciousness. Please seek emergency care or call 911 if symptoms are severe. Continue all other medications as prescribed. If you need medication refills, please call our office during business hours (M-F 8a-4:30p) Please consider watching [employer] What the Health, Game Ch[employer] and [employer] Please watch DDP Kevin Yeyo's Inspirational Story on YouTube. Please consider cooking from How to Prevent and Reverse Heart Disease Cookbook, [employer] Cookbook, How Not to From Heart Disease Cookbook Please consider researching metabolic syndrome following a low glycemic index diet , and begin an aerobic and resistance exercise program with goals of 40 minutes of aerobic exercise and 15 minutes of resistance exercise most days of the week. Normal [facility] Progress Noteon 09-08-2022 Progress Note [facility] Cardiov [facility] Office Note DATE of SERVICE: 09/08/22 TIME of SERVICE: 9:16 AM Chief Complaint: Chief Complaint Patient presents with New Patient Follow up from stress test, [facility] History of Present Illness: Neville Patel is a 67 y.o. obese female (BMI 45) who presents for evaluation of orthostatic lightheadedness and tachycardia. Her palpitations have improved w dose adjustment. She has no complaints of angina near syncope or syncope. She is not orthostatic. Past Medical History: History reviewed. No pertinent past medical history. Past Surgical History Past Surgical History: Procedure Laterality Date ANKLE SURGERY Left 2010 bone chip APPENDECTOMY 1970 CATARACT EXTRACTION, BILATERAL Bilateral 2014 with laser CYSTOSCOPY 2019 DILATION AND CURETTAGE OF UTERUS 1986 DILATION AND CURETTAGE OF UTERUS 2003 FOOT SURGERY Left 2012 plantar fasci release HYSTERECTOMY 2003 KNEE ARTHROSCOPY 2002 LITHOTRIPSY 2019 L kidney MANDIBLE OSTEOTOMY 2014 MANDIBULAR AND MAXILLARY OSTEOTOMY 1989 SCLERAL BUCKLE PROCEDURE Right 2018 SHOULDER ARTHROSCOPY Right 2015 SHOULDER ARTHROSCOPY Left 2018 TONSILLECTOMY 1961 TOTAL SHOULDER ARTHROPLASTY Right 2017 partial TOTAL SHOULDER ARTHROPLASTY Left 04/2022 WISDOM TOOTH EXTRACTION 1982 FamilyHistory Family History Problem Relation Name Age of Onset Coronary artery disease Mother adult onset DM, [place] Hypertension Mother Hyperlipidemia Mother Hyperlipidemia Father Stroke Father Heart attack Father Social History Social History Tobacco Use Smoking status: Former Packs/day: 1.00 Years: 20.00 Pack years: 20.00 Types: Cigarettes Quit date: 02/18/1999 Years since quittin.5 Smokeless tobacco: Never Substance Use Topics Alcohol use: Yes Comment: rare Medications: Current Outpatient Medications: aspirin 81 MG EC tablet, Take 81 mg by mouth in the morning., Disp: , Rfl: buPROPion SR (Wellbutrin SR) 100 MG 12 hr tablet, Take 200 mg by mouth daily., Disp: , Rfl: cyclobenzaprine (Flexeril) 10 MG tablet, Take 1 tablet by mouth 3 times daily as needed., Disp: , Rfl: Diclofenac Sodium (Voltaren) 1 % gel, Apply topically., Disp: , Rfl: ergocalciferol (Vitamin D-2) 1.25 MG (36615 UT) capsule, TAKE 1 CAPSULE BY MOUTH ONCE WEEKLY EVERY SUNDAY, Disp: , Rfl: liothyronine (Cytomel) 5 MCG tablet, TAKE 3 TABLETS BY MOUTH DAILY IN THE MORNING, Disp: , Rfl: metoprolol succinate XL (Toprol-XL) 25 MG 24 hr tablet, Take 25 mg by mouth in the morning., Disp: , Rfl: potassium citrate CR (Urocit-K-15) 15 mEq ER tablet, Take 1 tablet by mouth in the morning and 1 tablet in the evening., Disp: , Rfl: topiramate 50 MG tablet, Take 50 mg by mouth every morning., Disp: , Rfl: venlafaxine XR (Effexor XR) 75 MG 24 hr capsule, Take 225 mg by mouth in the morning., Disp: , Rfl: Review of Systems: Review of Systems Constitutional: Negative for diaphoresis. HENT: Negative for nosebleeds. Respiratory: Negative for cough (chronic), shortness of breath and wheezing. Cardiovascular: Negative for chest pain, palpitations and leg swelling. Gastrointestinal: Negative for abdominal pain, blood in stool, nausea and vomiting. Genitourinary: Negative for hematuria. Musculoskeletal: Negative for back pain (chronic). Neurological: Positive for dizziness (at PT). Negative for syncope and light-headedness. Hematological: Does not bruise/bleed easily. Psychiatric/Behavioral: Negative for dysphoric mood and suicidal ideas. Physical Examination: Vitals: Vitals: 09/08/22 0841 BP: 128/84 BP Location: Left arm Patient Position: Sitting BP Cuff Size: Large adult Pulse: 64 SpO2: 94% Weight: 232 lb 3.2 oz (105 kg) Height: 5' (1.524 m) Body mass index is 45.35 kg/m?. Physical Exam Constitutional: General: She is not in acute distress. Appearance: She is not diaphoretic. HENT: Head: Normocephalic. Nose: Nose normal. Mouth/Throat: Mouth: Mucous membranes are moist. Pharynx: No oropharyngeal exudate. Eyes: General: No scleral icterus. Right eye: No discharge. Left eye: No discharge. Neck: Thyroid: No thyromegaly. Vascular: No carotid bruit or JVD. Cardiovascular: Rate and Rhythm: Normal rate and regular rhythm. Pulses: Normal pulses. Heart sounds: Normal heart sounds. Pulmonary: Effort: Pulmonary effort is normal. Breath sounds: Normal breath sounds. Abdominal: General: Bowel sounds are normal. There is no distension. Palpations: There is no hepatomegaly. Tenderness: There is no abdominal tenderness. Musculoskeletal: General: Normal range of motion. Cervical back: Normal range of motion. Right lower leg: No edema. Left lower leg: No edema. Skin: General: Skin is warm and dry. Neurological: Mental Status: She is oriented to person, place, and time. Psychiatric: Mood and Affect: Mood normal. Behavior: Behavior normal. Cardiac Tests: (more content not included)... Normal [facility] Heart Perfusion W stress and W radionuclide [place] 04-28-2022 Addendum by Provider , [facility] [place] on 05/16/2022 10:03 AM EDT * * *Final Report* * * DATE OF EXAM: Apr 24 2022 10:10AM [facility] 0006 - [place] CARDIAC PERF STRESS/PHARM / PROCEDURE REASON: multiple diagnoses * * * * Physician Interpretation * * * * Stress Hard Metals Hand Engraver Report: [facility] Date of service: 04/24/2022 7:38:12 AM Supervising physician: Maddison Miller MD PATIENT: Name: MRS. NEVILLE PATEL Age: 66 years Gender: F The supervising physician was in the department and immediately available. Final PATIENT: Name: MRS. NEVILLE PATEL Age: 66 years Gender: F CONCLUSIONS: 1. SPECT Perfusion Study: Normal. 2. There is no scintigraphic evidence for inducible ischemia. 3. No evidence of scarred myocardium. Small fixed defect at apex consisitent with normal apical thinning. 4. Left ventricle is normal in size. The left ventricle systolic function is normal. 5. Right ventricle is normal in size. The right ventricle systolic function is normal. 6. No evidence of transiet ischemic dilation. Gated Stress FBP Gated Rest FBP LVEF % 73 74 Prior Study Comparison No prior nuclear cardiology exam available for comparison. Nuclear Med Report:1-Day Gated SPECT Myocardial Perfusion with Regadenoson Stress: Myocardial perfusion imaging was performed at rest 30 minutes following the IV injection of the radiotracer. The patient received 0.4 mg of regadenoson, via rapid IV push, immediately followed by radiotracer IV. Gated post stress tomographic imaging was performed 30 to 60 minutes later. See administered radiotracer and doses below. [facility] Date of service: 04/24/2022 7:38:12 AM Ordering Physician: MADDISON MILLER. Requesting Physician: Indication: CHEST PAIN; PRE OP Interpreting physician: Maddison Miller MD Previous Cardiovascular Interventions: Diagnostic cath Height: 152.40 cm BSA: 2.12 m Weight: 106.14 kg BMI: 45.7 kg/m Imaging Protocol Limitation Reason Patient motion. Exam Type: Rest Stress Radiopharm: Tc-99m Tetrofosmin Tc-99m Tetrofosmin Dosage(mCi): 15.7 43 Atten Correction: not performed not performed Stress Agent: Regadenoson 0.4mg Supply provided from [facility] Resting Blood Press: 125/80 mmHg Image Quality The overall study imaging quality was deemed to be good. The following technical issues were noted: Patient motion. FINDINGS: Left Ventricle Wall Motion: Stress FBP - All segments are normal. Rest FBP - Gated Stress FBP - Gated Rest FBP - Reversibility - Stress FBP Stress FBP Gated Stress FBP Gated Rest FBP LVEF: 73 % 74 % ED Volume: 64 ml 62 ml ES Volume: 17 ml 16 ml TID: 1.09 Perfusion Findings Stress FBP - Summed Score=2 There is a mild perfusion defect in the apical inferior segment and apex. All remaining scored segments show normal perfusion. Rest FBP - Summed Score=2 There is a mild perfusion defect in the apical anterior segment and apex. All remaining scored segments show normal perfusion. Stress FBP Rest FBP Summed Score=2 Summed Score=2 LEFT VENTRICLE The left ventricle is normal in size. Left ventricular systolic function is normal. Right Ventricle The right ventricle is normal in size. Right ventricle systolic function is normal. Stress Test Findings: There is no scintigraphic evidence for inducible ischemia. There is no evidence of scarring. Final Stress ECG Report: [facility] Date of service: 04/24/2022 7:38:12 AM Ordering physician: MADDISON MILLER marine habitat resource specialist: Lupe Chavez Pattern Assembler: Ynes Johnson RN Interpreting physician: Maddison Miller MD Patient name: MRS. NEVILLE PATEL Age: 66 years Gender: F Height: 152.40 cm BSA: 2.12 m Weight: 106.14 kg BMI: 45.7 kg/m Indication: Encounter for pre-procedural cardiovascular examination for non-cardiac surgery Stress ECG Conclusion: Conclusion: Normal Stress ECG Summary: The patient's resting heart rate was 67 bpm and blood pressure was 125/80 mmHg. The patient received regadenoson 0.4 mg IVP over approximately 15 seconds followed immediately by injection of nuclear isotope (more content not included)... [facility] Heart Perfusion W stress and W radionuclide IVOrdered By: Ccf Provider on 04-28-2022 [facility] Heart Perfusion W stress and W radionuclide [place] 04-24-2022 Radiology Study observation (narrative) [facility] ECG COMPLETEon 04-04-2022 Atrial Rate [address] [facility] Calculated P [place] -24 degrees [facility] Calculated R [place] 15 degrees [facility] Calculated T [place] 64 degrees [facility] P-R Interval [address] [facility] QRS Duration [address] [facility] QT Interval [address] [facility] QTC Calculation (Bazett) [address] [facility] Ventricular Rate 76 BPM [facility] ACTIVATED PTTon 04-03-2022 aPTT Coag (PPP) [Time] 25.1 s 23.0 - 32.[address] [facility] CBC panel Auto (Bld)on 04-03 Erythrocyte distribution width (RBC) [Ratio] 12.4 % 11.5 - 15.0 % [facility] Hematocrit (Bld) [Volume fraction] 37.6 % 36.0 - 46.0 % [facility] Hemoglobin (Bld) [Mass/Vol] 12.5 g/dL 11.5 - 15.5 g/dL [facility] MCH (RBC) [Entitic mass] 29.2 pg 26.0 - 34.[address] [facility] MCHC (RBC) [Mass/Vol] 33.2 g/dL 30.5 - 36.0 g/dL [facility] MCV (RBC) [Entitic vol] 87.9 fL 80.0 - 100.[address] [facility] Nucleated RBC (Bld) [#/Vol] <0.01 k/uL [facility] Platelet mean volume (Bld) [Entitic vol] 8.8 fL Low 9.0 - 12.[address] [facility] Platelets (Bld) [#/Vol] 309 10*3/uL 150 - 400 k/uL [facility] RBC (Bld) [#/Vol] 4.28 10*6/uL 3.90 - 5.20 m/uL [facility] WBC (Bld) [#/Vol] 6.13 10*3/uL 3.70 - 11.00 k/uL [facility] Comprehensive metabolic 2000 panelon 04-03-2022 Albumin [Mass/Vol] 3.7 g/dL 3.2 - 5.0 g/dL [facility] ALP [Catalytic activity/Vol] 115 U/L 45 - 117 U/L [facility] ALT [Catalytic activity/Vol] 16 U/L 13 - 61 U/L [facility] Anion gap [Moles/Vol] 6 mmol/L 5 - 16 mmol/L [facility] AST [Catalytic activity/Vol] 18 U/L 8 - 34 U/L [facility] Bilirubin [Mass/Vol] 0.3 mg/dL 0.2 - 1.0 mg/dL [facility] Calcium [Mass/Vol] 9.6 mg/dL 8.5 - 10.5 mg/dL [facility] Chloride [Moles/Vol] 111 mmol/L High 98 - 107 mmol/L [facility] CO2 [Moles/Vol] 27 mmol/L 21 - 32 mmol/L [facility] Creatinine [Mass/Vol] 1.22 mg/dL High 0.51 - 0.95 mg/dL [facility] Estimated Glomerular Filtration Rate 50 mL/min/1.73m Low >=60 mL/min/1.[address] [facility] Glucose [Mass/Vol] 111 mg/dL High 70 - 100 mg/dL [facility] Potassium [Moles/Vol] 4.3 mmol/L 3.5 - 5.1 mmol/L [facility] Protein [Mass/Vol] 6.3 g/dL 6.0 - 8.5 g/dL [facility] Sodium [Moles/Vol] 144 mmol/L 136 - 145 mmol/L [facility] Urea nitrogen [Mass/Vol] 24 mg/dL 7 - 26 mg/dL [facility] FERRITIN BLDon 04-03-2022 Ferritin [Mass/Vol] 110.6 ng/mL 8.0 - 307.0 ng/mL [facility] HbA1c (Bld)on 04-03-2022 Average glucose Estimated from glycated hemoglobin (Bld) [Mass/Vol] 114 mg/dL [facility] HbA1c (Bld) [Mass fraction] 5.6 % 4.3 - 6.0 % [facility] Iron and Iron binding capaci ty panelon 04-03-2022 Iron [Mass/Vol] 72 ug/dL 50 - 170 ug/dL [facility] Iron binding capacity [Mass/Vol] 346 ug/dL 221 - 481 ug/dL [facility] Iron/TIBC [Molar ratio] 20.8 % Low 22.0 - 44.0 % [facility] Laboratory - Microbiology an d Antimicrobial susceptibilityon 04-03-2022 S. aureus and MRSA panel LEIGHANN+probe (Nose) Negative Negative [facility] PT panel Coag (PPP)on 2022 INR Coag (PPP) [Relative time] 1.0 {INR} 0.9 - 1.3 [facility] PT Coag (PPP) [Time] 9.9 s 9.7 - 13.[address] [facility] TYPE AND SCREEN,[address] [facility] HIstorical Ab Scr Status Negative [facility] Rh Nom (Bld) Positive [facility] CBC W/DIFFon 06-28-2021 BASO ABS 0.00 K/CU MM Normal 0-0.2 [facility] [place] Comment on above: Performed By: #### L 550.77114, L200.24427 #### [facility] [address] [place] [address] Basophils/100 WBC (Bld) 0.5 % Normal 0-2 [facility] Comment on above: Performed By: #### L 550.21225, L200.14555 #### [facility] [address] [place] [address] EOS ABS 0.20 K/CU MM Normal 0-0.5 [facility] Comment on above: Performed By: #### L 550.79548, L200.83905 #### [facility] [address] [place] [address] Eosinophils/100 WBC (Bld) 3.9 % Normal 0-5 [facility] Comment on above: Performed By: #### L 550.66951, L200.14214 #### [facility] [address] [place] [address] Erythrocyte distribution width (RBC) [Ratio] 12.5 % Normal 11-14.5 [facility] Comment on above: Performed By: #### L 550.38081, L200.79287 #### [facility] [address] [place] [address] Hematocrit (Bld) [Volume fraction] 41.7 % Normal 35.0-47.0 [facility] Comment on above: Performed By: #### L 550.25320, L200.64018 #### [facility] [address] [place] [address] Hemoglobin (Bld) [Mass/Vol] 13.4 g/dL Normal 11.5-15.5 [facility] Comment on above: Performed By: #### L 550.64397, L200.52476 #### [facility] [address] [place] [address] IMMATR GRAN ABS 0.00 K/CU MM Normal Less than 2 [facility] Comment on above: Performed By: #### L 550.80631, L200.18205 #### [facility] [address] [place] [address] IMMATURE GRAN % 0.2 % Normal Less than 2 [facility] Comment on above: Performed By: #### L 550.95520, L200.45048 #### [facility] [address] [place] [address] LYMPH ABS 1.60 K/CU MM Normal 0.9-4.4 [facility] Comment on above: Performed By: #### L 550.33167, L200.47327 #### [facility] [address] [place] [address] Lymphocytes/100 WBC (Bld) 25.9 % Normal 20-40 [facility] Comment on above: Performed By: #### L 550.90097, L200.00307 #### [facility] [address] [place] [address] MCHC (RBC) [Mass/Vol] 32.1 g/dL Normal 32.0-36.0 [facility] Comment on above: Performed By: #### L 550.85534, L200.94037 #### [facility] [address] [place] [address] MCV (RBC) [Entitic vol] 91.4 fL Normal 80.0-99.0 [facility] Comment on above: Performed By: #### L 550.22331, L200.35393 #### [facility] [address] [place] [address] MONO ABS 0.70 K/CU MM Normal 0.1-1.1 [facility] Comment on above: Performed By: #### L 550.39449, L200.05183 #### [facility] [address] [place] [address] Monocytes/100 WBC (Bld) 10.7 % High 2-10 [facility] Comment on above: Performed By: #### L 550.18415, L200.86329 #### [facility] [address] [place] [address] NEUTROPHIL ABS 3.60 K/CU MM Normal 2.0-8.3 [facility] Comment on above: Performed By: #### L 550.18542, L200.96812 #### [facility] [address] [place] [address] Neutrophils/100 WBC (Bld) 58.8 % Normal 45-75 [facility] Comment on above: Performed By: #### L 550.28694, L200.35720 #### [facility] [address] [place] [address] Nucleated RBC/100 WBC (Bld) [Ratio] 0.0 % Normal Less than 1 [facility] Comment on above: Performed By: #### L 550.49346, L200.48411 #### [facility] [address] [place] [address] Platelet mean volume (Bld) [Entitic vol] 9.6 fL Normal 9.4-12.4 [facility] Comment on above: Performed By: #### L 550.89281, L200.31275 #### [facility] [address] [place] [address] PLT 327 K/CU MM Normal 150-450 [facility] Comment on above: Performed By: #### L 550.56572, L200.29893 #### [facility] [place] [address] RBC 4.56 M/CU MM Normal 3.90-5.30 [facility] Comment on above: Performed By: #### L 550.87707, L200.24225 #### [facility] [address] [place] [address] WBC 6.2 K/CUMM Normal 4.5-11.0 [facility] Comment on above: Performed By: #### L 550.11634, L200.30559 #### [facility] [address] [place] [address] CMPon 06-28-2021 Albumin [Mass/Vol] 4.0 g/dL Normal 3.2-5.0 [facility] Comment on above: Performed By: #### L 550.13894, L500.55093, L500.69247, L500.27013, L500.60244, L500.28815 #### [facility] [address] [place] [address] Albumin/Globulin [Mass ratio] 1.7 {ratio} Normal 0.8-2.0 [facility] Comment on above: Performed By: #### L 550.11984, L500.22891, L500.75382, L500.85563, L500.87218, L500.72567 #### [facility] [place] [address] ALK PHOS 132 U/L High 45-117 [facility] Comment on above: Performed By: #### L 550.78931, L500.32923, L500.12538, L500.97409, L500.45877, L500.99492 #### [facility] [address] [place] [address] ALT [Catalytic activity/Vol] 22 U/L Normal 13-61 [facility] Comment on above: Result Comment: RESU LTS MAY BE FALSELY DEPRESSED AFTER THE ADMINISTRATION OF SULFASALAZINE AND/OR SULFAPYRIDINE. Performed By: #### L 550.92555, L500.36188, L500.55431, L500.18225, L500.06654, L500.65260 #### [facility] [address] [place] [address] Anion gap [Moles/Vol] 5 mmol/L Normal 5-16 [facility] Comment on above: Performed By: #### L 550.28300, L500.55217, L500.67306, L500.40945, L500.84838, L500.21083 #### [facility] [address] [place] [address] AST [Catalytic activity/Vol] 14 U/L Normal 8-34 [facility] Comment on above: Result Comment: RESU LTS MAY BE FALSELY DEPRESSED AFTER THE ADMINISTRATION OF SULFASALAZINE AND/OR SULFAPYRIDINE. Performed By: #### L 550.84745, L500.08726, L500.46767, L500.54684, L500.70363, L500.80594 #### [facility] [place] [address] BILI TOTAL 0.60 MG/DL Normal 0.2-1.0 [facility] Comment on above: Performed By: #### L 550.46465, L500.60104, L500.70301, L500.88546, L500.78713, L500.72193 #### [facility] [place] [address] Calcium [Mass/Vol] 9.9 mg/dL Normal 8.5-10.5 [facility] Comment on above: Result Comment: NOTE NEW NORMAL RANGE DUE TO REAGENT CHANGE Performed By: #### L 550.40769, L500.49802, L500.68942, L500.84334, L500.47052, L500.30382 #### [facility] [address] [place] [address] Chloride [Moles/Vol] 110 mmol/L High 98-107 [facility] Comment on above: Performed By: #### L 550.90351, L500.29643, L500.21712, L500.74785, L500.83866, L500.43147 #### [facility] [place] [address] CO2 [Moles/Vol] 27.0 mmol/L Normal 21-32 [facility] Comment on above: Performed By: #### L 550.33242, L500.14471, L500.98315, L500.77848, L500.76644, L500.91003 #### [facility] [place] [address] Creatinine [Mass/Vol] 1.19 mg/dL High 0.510-0.95 0 [facility] Comment on above: Result Comment: Ivania ents receiving either N-Acetylcysteine (NAC) or Metamizole prior to venipuncture, may have falsely depressed results. Performed By: #### L 550.49747, L500.76230, L500.35136, L500.13176, L500.94779, L500.05950 #### [facility] [place] [id number] Globulin (S) [Mass/Vol] 2.4 g/dL Normal 2.2-4.2 [facility] Comment on above: Performed By: #### L 550.00807, L500.84096, L500.65127, L500.22755, L500.88236, L500.94987 #### [facility] [place] [address] Glucose [Mass/Vol] 108 mg/dL High 70-100 [facility] Comment on above: Result Comment: 70-1 00- Normal Fasting; 100-125 Impaired Fasting; greater than 126 on more than one result- Diabetes. ADA guidelines. Results may be falsely elevated after the administration of Sulfapyridine. Results may be falsely depressed after the administration of Sulfasalazine. Performed By: #### L 550.82632, L500.61406, L500.18922, L500.10363, L500.12410, L500.90308 #### [facility] [address] [place] [address] Potassium [Moles/Vol] 4.2 mmol/L Normal 3.5-5.1 [facility] Comment on above: Performed By: #### L 550.82870, L500.61462, L500.64524, L500.17416, L500.37656, L500.98524 #### [facility] [address] [place] [address] Protein [Mass/Vol] 6.4 g/dL Normal 6.0-8.5 [facility] Comment on above: Performed By: #### L 550.61915, L500.66515, L500.52117, L500.46834, L500.39713, L500.07483 #### [facility] [address] [place], [place] [address] Sodium [Moles/Vol] 142 mmol/L Normal 136-145 [facility] Comment on above: Performed By: #### L 550.10917, L500.41307, L500.47152, L500.66272, L500.65249, L500.76850 #### [facility] [address] [place], [place] [address] Urea nitrogen [Mass/Vol] 24 mg/dL Normal 7-26 [facility] Comment on above: Performed By: #### L 550.10043, L500.40853, L500.38377, L500.73716, L500.35099, L500.86755 #### [facility] [address] [place], [place] [address] Urea nitrogen/Creatini ne [Mass ratio] 20 mg/mg Normal 15-24 [facility] Comment on above: Performed By: #### L 550.61773, L500.20126, L500.04406, L500.21973, L500.04242, L500.18279 #### [facility] [address] [place] [address] GFR ESTon 06-28-2021 IF AMER 55 Normal [facility] Comment on above: Performed By: #### L 550.43018, L500.38051, L500.72087, L500.51846, L500.18907, L500.00605 #### [facility] [address] [place] [address] IF non-AFR AMER 46 Normal [facility] Comment on above: Performed By: #### L 550.89493, L500.89671, L500.23020, L500.69585, L500.91322, L500.53579 #### [facility] [address] [place], [place] [address] HGB A1C GLYCOHBon 06-28-2021 HbA1c (Bld) [Mass fraction] 5.8 % Normal 4.3-6.0 [facility] Comment on above: Performed By: #### L 550.78524, L200.64755 #### [facility] [address] [place], [place] [address] LIPIDon 06-28-2021 CHOL 232 MG/dL High 0-199 [facility] Comment on above: Performed By: #### L 550.85699, L500.67557, L500.61498, L500.75848, L500.19956, L500.23872 #### [facility] [address] [place] [address] Cholesterol in HDL [Mass/Vol] 42 mg/dL Normal GREATER THAN 40 [facility] Comment on above: Result Comment: Ivania ents receiving Metamizole prior to venipuncture, may have falsely depressed results. Performed By: #### L 550.00076, L500.08098, L500.39634, L500.97042, L500.31132, L500.83773 #### [facility] [address] [place] [address] Cholesterol in LDL [Mass/Vol] 160 mg/dL Normal [facility] Comment on above: Result Comment: ___C HOLESTEROL/HDL RATIO RISK___ CHD RISK = Total CHOL LDL HDL (CHOL/HDL) Recommended <200 <130 >40 <3.4 Borderline 200-239 130-159 3.4-4.99 High >240 >160 >5.0 Performed By: #### L 550.57323, L500.38514, L500.17972, L500.03374, L500.91272, L500.83822 #### [facility] [place] [address] Triglyceride [Mass/Vol] 149 mg/dL Normal 30-149 [facility] Comment on above: Result Comment: Ivania ents receiving either N-Acetylcysteine (NAC) or Metamizole prior to venipuncture, may have falsely depressed results. Performed By: #### L 550.10371, L500.64378, L500.54560, L500.01843, L500.26771, L500.65031 #### [facility] [place] [address] TSHon 06-28-2021 TSH 2.014 UIU/ML Normal 0.358-3.74 0 [facility] Comment on above: Result Comment: 3rd generation ultra sensitive TSH Performed By: #### L 550.06903, L500.91169, L500.93370, L500.30947, L500.01000, L500.52060 #### [facility] [place] [address] MSCon 05-28-2021 [facility] REPORT Normal [facility] DATE OF SERVICE: 10/2021 REASON OF VISIT: Congestion, headache, ear pain. HISTORY OF PRESENT ILLNESS: This is a 64-year-old female presented with symptoms of cough, congestion, drainage, sinus pressure headache which has been going on for the last 3 weeks. She has been taking Tylenol, but it is not helping. Now she has started having ear pain and increasing in her sinus symptoms. No shortness of breath. No fever. REVIEW OF OTHER SYSTEMS: Normal. ALLERGIES: NSAIDS, SULFA, CHOLESTEROL MEDICINE, MORPHINE, ASPIRIN, LATEX. MEDICATIONS: List was reviewed. PHYSICAL EXAMINATION: She is awake, alert, not in distress. No dyspnea. Temperature 98.3, blood pressure 134/70, pulse 84, respirations 20, pulse oximetry 97% on room air. Pain score 7/10. HEENT: Remarkable for significant nasal congestion and drainage, and moderate paranasal sinus tenderness. Both ears were normal. Throat not injected, but she has some postnasal drip. Chest: Clear to auscultate. Heart: Regular rate and rhythm. [facility] PATIENT NAME: NEVILLE PATEL [address] [facility] [address] [place] MEDICAL REC #: [id number] [place] [address] [facility] REPORT [facility] PHYSICIAN ASSESSMENT: Acute sinusitis with ears pain. PLAN: Clinical findings were discussed with the patient in detail. I gave her amoxicillin 875 mg twice a day for 10 days with no refill. She should use saline nasal spray, iomw-noi-adylfdo medicine for symptom relief. Drink a lot of fluid. Tylenol as needed. She will follow with her doctor. Patient understood and agreed. Marge Milan MD [id number] [employer]SI File#: [id number] END OF DOCUMENT / CHANGE LOG FOLLOWS Last Edited By Elec. Signed By Marge Milan MD #PAWPR Marge Milan MD #[id number] on 06/01/2021 10:53 ET on 06/01/2021 10:53 ET Revision Number - 2 Verified/Reviewed by 06/01/21 1053 PAWPR [facility] PATIENT NAME: NEVILLE PATEL H [address] [facility] [address] [place] MEDICAL REC #: [id number] [place] [address] [facility] REPORT [facility] PHYSICIAN Normal [facility] 03-04-2021 SLEEP LAB REPORT Normal [facility] [address] [facility] [place] [address] Split Study Report Name: NEVILLE PATEL Date of Study: 03/04/2021 [facility] Age(): 65(1955) ESS: 3 Neck Circ.: 14.0 in Height: 60.0 in Weight: 247.0 lb BMI: 48.2 Insurance Provider: [employer] MEDICARE COMPLETE Referring Provider: Mimi Weiss MD Sleep History: The patient is a 65 year old female with a history of difficulty staying asleep, grinds teeth at night. A split-night polysomnogram study was performed. Past Medical History: detached retina, HTN, Hyperlipids, Medications: tricor, welchol, zetia, nsaids Sleep Procedure: PSG with CPAP 4 or greater with additional parameters. Procedure: The study was attended continuously by a senior nuclear medicine technologist. The monitored parameters included: left (E1-M2) and right (E2-M1) EOG, frontal (F3-M2 and F4-M1), central (C3-M2 and C4-M1) and occipital (O1-M2 and O2-M1) EEG, mental and submental EMG, left and right anterior tibialis EMG, single ECG waveform, snoring, continuous airflow with thermistor, nasal pressure transducer, and PAP Interface, chest and abdominal effort, oxygen saturation, and body position via video monitoring. Raw data was reviewed. Hypopnea Definition: The peak signal excursions drop by = 30% of pre-event baseline using nasal pressure (diagnostic study), PAP device flow (titration study) or an alternative hypopnea sensor (diagnostic study). The duration of the = 30% drop in signal excursion is = 10 seconds. There is a greater than or equal to 3% oxygen desaturation from pre-event baseline. Apnea/Hypopnea Index(AHI) = The frequency of apneas and hypopneas per hour of sleep. It is the total number of apneas and hypopneas divided by total sleep time x 60. RERA Definition: Obstructive upper airway airflow limitation reduction(which does not meet the criteria of apnea or hypopnea) associated with increased respiratory effort resulting in arousal. Respiratory Disturbance Index(RDI) = Total number of apneas, hypopneas, and RERAs per hour of sleep. It is the total number of apneas, hypopneas, and RERAs divided by total sleep time x 60. Sleep Architecture: The study started at 10:11:09 PM and ended at 5:52:06 AM. Total sleep time (TST) was 323 minutes resulting in a sleep efficiency of 70.2% (total recording time (TRT) = 461 m). There were 6 awakenings with a total time awake after sleep onset of 37 minutes. The sleep latency was 100 minutes and the REM latency was 00 minutes. The patient spent 32.1% of sleep time in the supine position. The sleep stage percentages were 1.5% stage N1, 92.7% stage N2, 5.7% stage N3 and 0.0% REM sleep. There were 216 arousals, resulting in an arousal index of 40.1. There were 50 stage shifts. Baseline Respiratory Data: Snoring was noted. There were 66 respiratory events consisting of 0 apneas [0 obstructive(0.0%), 0 mixed (0.0%), and 0 central (0.0%)] and 66 hypopneas. There were 0 RERAs.The patient spent 0.0% of baseline sleep time in the supine position. The apnea-hypopnea index (AHI) was 26.1 and the central-apnea index (ALLA) was 0.0. The overall respiratory disturbance index (RDI) was 26.1. The supine AHI was 0.0. The off-supine AHI was 26.1. The REM AHI was 0.0. The non-REM AHI was 26.1 and the arousal index was 50.3. The mean oxygen saturation was 91.0%, with a minimum oxygen saturation of 87.0%. The patient spent 5.2% (7.9 min) of sleep time with an oxygen saturation below 90% and 1.5% (2.2 min) of sleep time with an oxygen saturation at or below 88%. . REM-Time REM AHI REM RDI NREM-Time NREM AHI NREM RDI Total-Time Total AHI Total RDI Supine 0.0 m 0.0 0.0 0.0 m 0.0 0.0 0.0 m 0.0 0.0 Off-Supine 0.0 m 0.0 0.0 151.5 m 26.1 26.1 151.5 m 26.1 26.1 Total 0.0 m 0.0 0.0 151.5 m 26.1 26.1 151.5 m 26.1 26.1 Positive Airway Pressure Therapy: During the second part of the study, CPAP titration was initiated at 02:35:27 and ended at 05:52:05. . Snoring was eliminated at a CPAP setting of 8 cm H20. With CPAP of 8 cm there were 7 respiratory events consisting of 0 apneas [0 obstructive (0.0%), 0 mixed (0.0%), and 0 central (0.0%)] and 7 hypopneas, there were 0 RERAs, the apnea-hypopnea index (AHI) was 14.7 and the overall respiratory disturbance index (RDI) was 14.7. The mean oxygen saturation during the study was 91.0%, with a minimum oxygen saturation of 86.0%. The patient spent 3.3% (5.6 min) of sleep time with an oxygen saturation below 90%. A Resmed F-10 FFM/small was used. The mask leak at the most effective pressure was within normal limits. PAP Summary: PAP O2 TST % Sup Sup AHI REM RAHI ALLA HI AHI RDI RERAs Ar Idx Jaime Avg SaO2 05 0.0 86 m 50.5% 10.9 0 m 0.0 0.0 35.6 37.7 37.7 0 34.9 86.0% 91.0% 06 0.0 57 m 86.4% 2.2 0 m 0.0 0.0 5.2 5.2 5.2 0 24.0 87.0% 91.0% 08 0.0 28 m 0.0% 0.0 (more content not included)... Normal [facility] CBC W/DIFFon 12-27-2020 BASO ABS 0.00 K/CU MM Normal 0-0.2 [facility] Comment on above: Performed By: #### L [id number], [id number] #### [facility] [address] [place] [address] Basophils/100 WBC (Bld) 0.4 % Normal 0-2 [facility] Comment on above: Performed By: #### L 200.30871, [id number] #### [facility] [address] [place] [address] EOS ABS 0.20 K/CU MM Normal 0-0.5 [facility] Comment on above: Performed By: #### L 200.83196, [id number] #### [facility] [address] [place] [address] Eosinophils/100 WBC (Bld) 3.7 % Normal 0-5 [facility] Comment on above: Performed By: #### L 200.42843, [id number] #### [facility] [address] [place] [address] Erythrocyte distribution width (RBC) [Ratio] 12.6 % Normal 11-14.5 [facility] Comment on above: Performed By: #### L 200.32977, [id number] #### [facility] [address] [place] [address] Hematocrit (Bld) [Volume fraction] 41.3 % Normal 35.0-47.0 [facility] Comment on above: Performed By: #### L 200.68567, L550.95289 #### [facility] [address] [place] [address] Hemoglobin (Bld) [Mass/Vol] 13.5 g/dL Normal 11.5-15.5 [facility] Comment on above: Performed By: #### L 200.42171, L550.71438 #### [facility] [address] [place] [address] IMMATR GRAN ABS 0.00 K/CU MM Normal Less than 2 [facility] Comment on above: Performed By: #### L 200.68557, L550.79220 #### [facility] [address] [place] [address] IMMATURE GRAN % 0.2 % Normal Less than 2 [facility] Comment on above: Performed By: #### L 200.08436, L550.10309 #### [facility] [address] [place] [address] LYMPH ABS 1.20 K/CU MM Normal 0.9-4.4 [facility] Comment on above: Performed By: #### L 200.26893, L550.67050 #### [facility] [address] [place] [address] Lymphocytes/100 WBC (Bld) 25.3 % Normal 20-40 [facility] Comment on above: Performed By: #### L 200.21021, L550.59901 #### [facility] [address] [place] [address] MCHC (RBC) [Mass/Vol] 32.7 g/dL Normal 32.0-36.0 [facility] Comment on above: Performed By: #### L 200.05561, L550.53450 #### [facility] [address] [place] [address] MCV (RBC) [Entitic vol] 90.2 fL Normal 80.0-99.0 [facility] Comment on above: Performed By: #### L 200.89248, L550.94125 #### [facility] [address] [place] [address] MONO ABS 0.50 K/CU MM Normal 0.1-1.1 [facility] Comment on above: Performed By: #### L 200.06169, L550.85366 #### [facility] [address] [place] [address] Monocytes/100 WBC (Bld) 9.4 % Normal 2-10 [facility] Comment on above: Performed By: #### L 200.64305, L550.74162 #### [facility] [address] [place] [address] NEUTROPHIL ABS 3.00 K/CU MM Normal 2.0-8.3 [facility] Comment on above: Performed By: #### L 200.68864, L550.36297 #### [facility] [address] [place] [address] Neutrophils/100 WBC (Bld) 61.0 % Normal 45-75 [facility] Comment on above: Performed By: #### L 200.48042, L550.70520 #### [facility] [address] [place] [address] Nucleated RBC/100 WBC (Bld) [Ratio] 0.0 % Normal Less than 1 [facility] Comment on above: Performed By: #### L 200.97122, L550.64145 #### [facility] [address] [place], [place] [id number] Platelet mean volume (Bld) [Entitic vol] 9.3 fL Low 9.4-12.4 [facility] Comment on above: Performed By: #### L 200.79471, L550.42618 #### [facility] [place] [address] PLT 353 K/CU MM Normal 150-450 [facility] Comment on above: Performed By: #### L 200.17089, L550.35595 #### [facility] [place] [address] RBC 4.58 M/CU MM Normal 3.90-5.30 [facility] Comment on above: Performed By: #### L 200.06692, L550.30442 #### [facility] [address] [place] [address] WBC 4.9 K/CUMM Normal 4.5-11.0 [facility] Comment on above: Performed By: #### L 200.53979, L550.16388 #### [facility] [address] [place], [place] [id number] CMPon 12-27-2020 Albumin [Mass/Vol] 4.0 g/dL Normal 3.2-5.0 [facility] Comment on above: Performed By: #### L 550.98766, L500.47553, L500.33607, L500.48522, L500.71809, L500.46397 #### [facility] [place] [id number] Albumin/Globulin [Mass ratio] 1.5 {ratio} Normal 0.8-2.0 [facility] Comment on above: Performed By: #### L 550.10832, L500.06550, L500.44195, L500.21718, L500.95665, L500.65880 #### [facility] [place] [address] ALK PHOS 126 U/L High 45-117 [facility] Comment on above: Performed By: #### L 550.47301, L500.05803, L500.86517, L500.59433, L500.86766, L500.12422 #### [facility] [place] [address] ALT [Catalytic activity/Vol] 16 U/L Normal 13-61 [facility] Comment on above: Result Comment: RESU LTS MAY BE FALSELY DEPRESSED AFTER THE ADMINISTRATION OF SULFASALAZINE AND/OR SULFAPYRIDINE. Performed By: #### L 550.05859, L500.17335, L500.45787, L500.89205, L500.20425, L500.45568 #### [facility] [address] [place] [address] Anion gap [Moles/Vol] 8 mmol/L Normal 5-16 [facility] Comment on above: Performed By: #### L 550.36892, L500.33431, L500.57525, L500.38832, L500.45258, L500.81688 #### [facility] [address] [place] [address] AST [Catalytic activity/Vol] 15 U/L Normal 8-34 [facility] Comment on above: Result Comment: RESU LTS MAY BE FALSELY DEPRESSED AFTER THE ADMINISTRATION OF SULFASALAZINE AND/OR SULFAPYRIDINE. Performed By: #### L 550.17810, L500.52487, L500.38727, L500.53213, L500.28412, L500.80804 #### [facility] [address] [place] [address] BILI TOTAL 0.40 MG/DL Normal 0.2-1.0 [facility] Comment on above: Performed By: #### L 550.13829, L500.70189, L500.97901, L500.36933, L500.84840, L500.59720 #### [facility] [address] [place] [address] Calcium [Mass/Vol] 9.8 mg/dL Normal 8.5-10.5 [facility] Comment on above: Result Comment: NOTE NEW NORMAL RANGE DUE TO REAGENT CHANGE Performed By: #### L 550.32824, L500.84622, L500.72569, L500.25595, L500.90363, L500.97499 #### [facility] [place] [address] Chloride [Moles/Vol] 109 mmol/L High 98-107 [facility] Comment on above: Performed By: #### L 550.32485, L500.93708, L500.49774, L500.61254, L500.01157, L500.75018 #### [facility] [place] [address] CO2 [Moles/Vol] 24.0 mmol/L Normal 21-32 [facility] Comment on above: Performed By: #### L 550.58177, L500.89026, L500.58263, L500.82578, L500.94331, L500.78585 #### [facility] [place] [address] Creatinine [Mass/Vol] 1.07 mg/dL High 0.510-0.95 0 [facility] Comment on above: Result Comment: Ivania ents receiving either N-Acetylcysteine (NAC) or Metamizole prior to venipuncture, may have falsely depressed results. Performed By: #### L 550.98746, L500.50064, L500.45128, L500.33625, L500.67945, L500.19750 #### [facility] [place] [id number] Globulin (S) [Mass/Vol] 2.7 g/dL Normal 2.2-4.2 [facility] Comment on above: Performed By: #### L 550.01342, L500.78562, L500.79725, L500.81721, L500.02719, L500.39617 #### [facility] [place] [address] Glucose [Mass/Vol] 106 mg/dL High 70-100 [facility] Comment on above: Result Comment: 70-1 00- Normal Fasting; 100-125 Impaired Fasting; greater than 126 on more than one result- Diabetes. ADA guidelines. Results may be falsely elevated after the administration of Sulfapyridine. Results may be falsely depressed after the administration of Sulfasalazine. Performed By: #### L 550.23337, L500.35040, L500.30518, L500.25619, L500.47446, L500.21409 #### [facility] [address] [place] [address] Potassium [Moles/Vol] 4.0 mmol/L Normal 3.5-5.1 [facility] Comment on above: Performed By: #### L 550.66868, L500.94872, L500.17451, L500.69346, L500.30585, L500.84954 #### [facility] [address] [place] [address] Protein [Mass/Vol] 6.7 g/dL Normal 6.0-8.5 [facility] Comment on above: Performed By: #### L 550.60285, L500.14001, L500.54339, L500.45998, L500.30564, L500.45730 #### [facility] [address] [place], [place] [address] Sodium [Moles/Vol] 141 mmol/L Normal 136-145 [facility] Comment on above: Performed By: #### L 550.70734, L500.23714, L500.32238, L500.19063, L500.75564, L500.96382 #### [facility] [address] [place] [address] Urea nitrogen [Mass/Vol] 18 mg/dL Normal 7-26 [facility] Comment on above: Performed By: #### L 550.08539, L500.76775, L500.50989, L500.81226, L500.33667, L500.24338 #### [facility] [address] [place], [place] [address] Urea nitrogen/Creatini ne [Mass ratio] 17 mg/mg Normal 15-24 [facility] Comment on above: Performed By: #### L 550.66256, L500.20006, L500.92608, L500.29361, L500.17564, L500.49752 #### [facility] [address] [place] [address] GFR ESTon 12-27-2020 IF AMER Greater than 60 Normal [facility] Comment on above: Performed By: #### L 550.00188, L500.09680, L500.24799, L500.84687, L500.46211, L500.82535 #### [facility] [address] [place] [address] IF non-AFR AMER 52 Normal [facility] Comment on above: Performed By: #### L 550.75240, L500.59149, L500.53078, L500.36494, L500.87907, L500.99750 #### [facility] [address] [place] [address] HGB A1C GLYCOHBon 12-27-2020 HbA1c (Bld) [Mass fraction] 5.7 % Normal 4.3-6.0 [facility] Comment on above: Performed By: #### L 200.85608, L550.47377 #### [facility] [address] [place] [address] LIPIDon 12-27-2020 CHOL 269 MG/dL High 0-199 [facility] Comment on above: Performed By: #### L 550.62642, L500.81851, L500.30450, L500.71108, L500.99395, L500.35902 #### [facility] [address] [place] [address] Cholesterol in HDL [Mass/Vol] 47 mg/dL Normal GREATER THAN 40 [facility] Comment on above: Result Comment: Ivania ents receiving Metamizole prior to venipuncture, may have falsely depressed results. Performed By: #### L 550.37509, L500.09792, L500.89746, L500.15214, L500.12361, L500.27341 #### [facility] [address] [place] [address] Cholesterol in LDL [Mass/Vol] 192 mg/dL Normal [facility] Comment on above: Result Comment: ___C HOLESTEROL/HDL RATIO RISK___ CHD RISK = Total CHOL LDL HDL (CHOL/HDL) Recommended <200 <130 >40 <3.4 Borderline 200-239 130-159 3.4-4.99 High >240 >160 >5.0 Performed By: #### L 550.52536, L500.83700, L500.21198, L500.58968, L500.88023, L500.93762 #### [facility] [place] [address] Triglyceride [Mass/Vol] 148 mg/dL Normal 30-149 [facility] Comment on above: Result Comment: Ivania ents receiving either N-Acetylcysteine (NAC) or Metamizole prior to venipuncture, may have falsely depressed results. Performed By: #### L 550.83147, L500.31342, L500.69675, L500.10023, L500.47649, L500.77685 #### [facility] [place] [address] T4 FREEon 12-27-2020 Free T4 [Mass/Vol] 0.88 ng/dL Normal 0.76-1.46 [facility] Comment on above: Performed By: #### L 550.64536, L500.43943, L500.37118, L500.95428, L500.27541, L500.97573 #### [facility] [place] [address] TSHon 12-27-2020 TSH 1.191 UIU/ML Normal 0.358-3.74 0 [facility] Comment on above: Result Comment: 3rd generation ultra sensitive TSH Performed By: #### L 550.01631, L500.76547, L500.54805, L500.00759, L500.65258, L500.08190 #### [facility] [place] [address] [id number] 12-27-2020 [id number] 75.0 NG/ML Normal 30.0-100.0 [facility] Comment on above: Result Comment: Defi ciency Less than 20 ng/mL Insufficiency 20 - Less than 30 ng/mL Sufficiency 30 - 100 ng/mL Performed By: #### L 550.41450, L500.68185, L500.74925, L500.68866, L500.24500, L500.29279 #### [facility] [address] [place] [id number] Vital Signs Date Time Vital Sign Value Performing Clinician Bob blevins 06-05-2024 18:58-0400 Body mass index (BMI) [Ratio] 47.85 kg/m2 Jim Washington Jr., CELL TENDER.NIGHT CLEANER Work Phone: [facility] 06-05-2024 18:58-0400 Body temperature 98.4 [degF] Jim Washington Jr., CELL TENDER.NIGHT CLEANER Work Phone: [facility] 06-05-2024 18:58-0400 Body weight 111.13 kg Jim Washington Jr., CELL TENDER.NIGHT CLEANER Work Phone: [facility] 06-05-2024 18:58-0400 Diastolic blood pressure 72 mm[Hg] Jim Washington Jr., CELL TENDER.NIGHT CLEANER Work Phone: [facility] 06-05-2024 18:58-0400 Heart rate 102 /min Jim Washington Jr., CELL TENDER.NIGHT CLEANER Work Phone: [facility] 06-05-2024 18:58-0400 Respiratory rate 18 /min Jim Washington Jr., CELL TENDER.NIGHT CLEANER Work Phone: [facility] 06-05-2024 18:58-0400 SaO2% (BldA) [Mass fraction] 97 % Jim Washington Jr., CELL TENDER.NIGHT CLEANER Work Phone: [facility] 06-05-2024 18:58-0400 Systolic blood pressure 138 mm[Hg] Jim Washington Jr., BLAYNE Work Phone: [facility] 05-15-2023 10:59-0400 Body height 152.4 cm Nayana Hoang MD Work Phone: [facility] 05-15-2023 10:59-0400 Body temperature 98.29 [degF] Nayana Hoang MD Work Phone: [facility] 05-15-2023 10:59-0400 Body weight 109.41 kg Nayana Hoang MD Work Phone: [facility] 05-15-2023 10:59-0400 Diastolic blood pressure 86 mm[Hg] Nayana Hoang MD Work Phone: [facility] 05-15-2023 10:59-0400 Heart rate 88 /min Nayana Hoang MD Work Phone: [facility] 05-15-2023 10:59-0400 Respiratory rate 16 /min Nayana Hoang MD Work Phone: [facility] 05-15-2023 10:59-0400 SaO2% (BldA) [Mass fraction] 95 % Nayana Hoang MD Work Phone: [facility] 05-15-2023 10:59-0400 Systolic blood pressure 138 mm[Hg] Nayana Hoang MD Work Phone: [facility] 07-03-2022 09:38-0400 Diastolic blood pressure 78 mm[Hg] Nayana Hoang MD Work Phone: [facility] 07-03-2022 09:38-0400 Systolic blood pressure 122 mm[Hg] Nayana Hoang MD Work Phone: [facility] 07-03-2022 09:33-0400 Body height 152.4 cm Nayana Hoang MD Work Phone: [facility] 07-03-2022 09:33-0400 Body temperature 97.11 [degF] Nayana Hoang MD Work Phone: [facility] 07-03-2022 09:33-0400 Body weight 108.32 kg Nayana Hoang MD Work Phone: [facility] 07-03-2022 09:33-0400 Heart rate 82 /min Nayana Hoang MD Work Phone: [facility] 07-03-2022 09:33-0400 Respiratory rate 18 /min Nayana Hoang MD Work Phone: [facility] 07-03-2022 09:33-0400 SaO2% (BldA) [Mass fraction] 97 % Nayana Hoang MD Work Phone: [facility] 05-26-2022 08:34-0400 Body height 152.4 cm Mimi Noling CELL TENDER.CN P Work Phone: [facility] 05-26-2022 08:34-0400 Body weight 107.96 kg Mimi Noling CELL TENDER.CN P Work Phone: [facility] 05-26-2022 08:34-0400 Diastolic blood pressure 80 mm[Hg] Mimi Noling CELL TENDER.NIGHT CLEANER Work Phone: [facility] 05-26-2022 08:34-0400 Heart rate 83 /min Mimi Noling CELL TENDER.CN P Work Phone: [facility] 05-26-2022 08:34-0400 SaO2% (BldA) [Mass fraction] 99 % Mimi Noling CELL TENDER.NIGHT CLEANER Work Phone: [facility] 05-26-2022 08:34-0400 Systolic blood pressure 120 mm[Hg] Mimi Noling CELL TENDER.NIGHT CLEANER Work Phone: [facility] 04-13-2022 15:04-0500 Body weight 106.14 kg Maddison Miller MD Work Phone: [facility] 04-13-2022 15:04-0500 Diastolic blood pressure 73 mm[Hg] Maddison Miller MD Work Phone: [facility] 04-13-2022 15:04-0500 Heart rate 79 /min Maddison Miller MD Work Phone: [facility] 04-13-2022 15:04-0500 SaO2% (BldA) [Mass fraction] 99 % Maddison Miller MD Work Phone: [facility] 04-13-2022 15:04-0500 Systolic blood pressure 151 mm[Hg] Maddison Miller MD Work Phone: [facility] 04-03-2022 12:11-0500 Diastolic blood pressure 52 mm[Hg] Pacc 2 Work Phone: [facility] 04-03-2022 12:11-0500 Systolic blood pressure 115 mm[Hg] Pacc 2 Work Phone: [facility] 04-03-2022 12:00-0500 Body height 152.4 cm Pacc 2 Work Phone: [facility] 04-03-2022 12:00-0500 Body weight 104.33 kg Pacc 2 Work Phone: [facility] 04-03-2022 12:00-0500 Heart rate 74 /min Pacc 2 Work Phone: [facility] 04-03-2022 12:00-0500 Respiratory rate 20 /min Pacc 2 Work Phone: [facility] 04-03-2022 12:00-0500 SaO2% (BldA) [Mass fraction] 95 % Pacc 2 Work Phone: [facility] 02-21-2022 09:04-0500 Body height 149.9 cm Nayana Hoang MD Work Phone: [facility] 02-21-2022 09:04-0500 Body temperature 97 [degF] Nayana Hoang MD Work Phone: [facility] 02-21-2022 09:04-0500 Body weight 106.41 kg Nayana Hoang MD Work Phone: [facility] 02-21-2022 09:04-0500 Diastolic blood pressure 84 mm[Hg] Nayana Hoang MD Work Phone: [facility] 02-21-2022 09:04-0500 Heart rate 68 /min Nayana Hoang MD Work Phone: [facility] 02-21-2022 09:04-0500 Respiratory rate 18 /min Nayana Hoang MD Work Phone: [facility] 02-21-2022 09:04-0500 SaO2% (BldA) [Mass fraction] 97 % Nayana Hoang MD Work Phone: [facility] 02-21-2022 09:04-0500 Systolic blood pressure 130 mm[Hg] Nayana Hoang MD Work Phone: [facility] 09-19-2021 11:51-0400 Body height 149.9 cm Tasha mcallister MD Work Phone: [facility] 09-19-2021 11:51-0400 Body temperature 97.59 [degF] Tasha mcallister MD Work Phone: [facility] 09-19-2021 11:51-0400 Body weight 100.7 kg Tasha mcallister MD Work Phone: [facility] 09-19-2021 11:51-0400 Diastolic blood pressure 101 mm[Hg] Tasha Worthington MD Work Phone: [facility] 09-19-2021 11:51-0400 Heart rate 71 /min Tasha mcallister MD Work Phone: [facility] 09-19-2021 11:51-0400 Respiratory rate 16 /min Tasha mcallister MD Work Phone: [facility] 09-19-2021 11:51-0400 SaO2% (BldA) [Mass fraction] 98 % Tasha Worthington MD Work Phone: [facility] 09-19-2021 11:51-0400 Systolic blood pressure 185 mm[Hg] Tasha Worthington MD Work Phone: [facility] Encounters Encounter Date Encounter Type Care Provider Facility Start: 07-24-2024 ambulatory JAMIE MACEDO Facilit y:[facility] Start: 06-30-2024 End: 06-30-2024 ambulatory NAYANA HOANG Work Phone: [facility] Work Phone: Start: 06-30-2024 End: 06-30-[address] Guerda Null MD -Ultrasound [facility] Work Phone: Start: 06-30-2024 End: 06-30-2024 ambulatory uGerda Null Facility:[facility] Start: 06-26-2024 End: 06-27-2024 Refill Nayana Hoang MD Work Phone: [facility] Comment on above: Refill Request Start: 06-05-2024 End: 06-05-2024 ambulatory SELF Facility:[id number] Start: 06-05-2024 End: 06-05-2024 Patient encounter procedure Jim Washington APRN.NIGHT CLEANER [facility] Phone[facility] Comment on above: Bacterial sinusitis (Primary Dx); Jaw pain, non-TMJ; Edema of face Start: 06-03-2024 End: 07-04-2024 ambulatory Nayana Hoang MD Work Phone: [facility] Start: 06-03-2024 End: 07-04-2024 Patient encounter procedure Nayana Hoang MD Work Phone: [facility] Start: 05-26-2024 End: 05-26-2024 Patient encounter procedure [facility] Start: 05-23-2024 End: 05-23-2024 Refill Nayana Hoang MD Work Phone: [facility] Comment on above: Refill Request Start: 04-07-2024 End: 04-07-2024 Office outpatient visit 15 minutes Mimi Ivy CELL TENDER.NIGHT CLEANER Work Phone: [facility] Comment on above: Influenza (Primary D x) Start: 04-07-2024 End: 04-07-2024 ambulatory MIMI IVY Facility:[id number] Start: 02-24-2024 End: 02-25-2024 Refill Nayana Hoang MD Work Phone: [facility] Comment on above: Refill Request Start: 01-23-2024 End: 01-24-2024 ambulatory Nayana Hoang MD Work Phone: [facility] Start: 01-23-2024 End: 01-24-2024 Patient encounter procedure Nayana Hoang MD Work Phone: [facility] Comment on above: Medication Crisis Start: 01-21-2024 End: 01-21-2024 ambulatory [facility] Comment on above: Advocacy (Wellness w as rescheduled to 2-15-24/) Refill Request Start: 12-06-2023 End: 12-07-2023 Refill Nayana Hoang MD Work Phone: [facility] Comment on above: Refill Request Start: 12-05-2023 End: 12-05-2023 ambulatory [facility] Engineer Chief Start: 12-05-2023 End: 12-05-2023 Patient encounter procedure [facility] Comment on above: Appointment (Verifie d wellness is scheduled ) Start: 10-17-2023 End: 10-18-2023 Refill Nayana Hoang MD Work Phone: [facility] Comment on above: Refill Request Start: 10-15-2023 End: 10-16-2023 Refill Nayana Hoang MD Work Phone: [facility] Comment on above: Refill Request Start: 08-30-2023 Patient encounter procedure [facility] Start: 07-24-2023 Patient encounter procedure [facility] Provider [facility] Start: 07-17-2023 Refill Nayana Hoang MD Work Phone: [facility] Comment on above: Refill Request Start: 07-03-2023 Patient encounter procedure [facility] Start: 06-21-2023 Refill Nayana Hoang MD Work Phone: [facility] Comment on above: Refill Request Start: 06-18-2023 Patient encounter procedure [facility] Start: 06-12-2023 Patient encounter procedure [facility] Start: 06-05-2023 End: 06-05-2023 Subsequent hospital visit by physician Xr [facility] 3 RADIO GEN [facility] Start: 06-03-2023 ambulatory Nayana Hoang MD Work Phone: [facility] Comment on above: Bupropion Start: 05-15-2023 End: 05-15-2023 Patient encounter procedure Nayana Hoang MD Work Phone: [facility] Comment on above: Combined hyperlipide lourdes (Primary Dx); Major depressive disorder, recurrent severe without psychotic features (HCC); Morbid obesity with BMI of 40.0-44.9, adult (HCC); Stage 3a chronic kidney disease (HCC); Hypertension, essential; Acquired hypothyroidism Start: 05-04-2023 ambulatory Nayana Hoang MD Work Phone: [facility] Comment on above: Blood Tests before Visit Start: 04-28-2023 Refill Mimi Ivy APRN.CNP Work Phone: [facility] Comment on above: Refill Request Start: 04-25-2023 Documentation procedure Mammog jes Coordinator [facility] Start: 04-25-2023 Letter encounter Mammography Coordinator [facility] Department Start: 04-25-2023 End: 04-25-2023 Subsequent hospital visit by physician Screen Mammo [facility] RADIO [facility]MO [facility] Comment on above: Encounter for screen ing mammogram for breast cancer [Z12.31] Start: 04-24-2023 Patient encounter procedure [facility] Provider [facility] Department Start: 04-18-2023 ambulatory Nayana Hoang MD Work Phone: [facility] Comment on above: Mammogram Start: 03-30-2023 Refill Nayana Hoang MD Work Phone: [facility] Comment on above: Refill Request Start: 10-21-2022 Refill Nayana Hoang MD Work Phone: [facility] Comment on above: Refill Request Start: 09-08-2022 End: 09-08-2022 ambulatory [place] [facility] Start: 07-27-2022 Telephone encounter Nayana Hoang MD Work Phone: [facility] Comment on above: Patient Question (Fe eling Tachycardia) Start: 07-25-2022 Telephone encounter Maddison Miller MD Work Phone: [facility] Comment on above: Patient Question Start: 07-03-2022 End: 07-03-2022 Patient encounter procedure Nayana Hoang MD Work Phone: [facility] Comment on above: Acquired hypothyroid ism (Primary Dx); Major depressive disorder, recurrent severe without psychotic features (HCC); Stage 3a chronic kidney disease (HCC); Hyperlipidemia, unspecified hyperlipidemia type; Prediabetes; Vitamin D deficiency; URI, acute Start: 06-21-2022 Refill Nayana Hoang MD Work Phone: [facility] Comment on above: Refill Request Start: 05-26-2022 End: 05-26-2022 Patient encounter procedure Mimi Ivy CELL TENDER.NIGHT CLEANER Work Phone: [facility] Comment on above: Medicare annual well ness visit, subsequent (Primary Dx); Special screening examination for viral disease; Screening for HIV (human immunodeficiency virus); Anxiety with depression Start: 04-25-2022 Telephone encounter Maddison Miller MD Work Phone: [facility] Comment on above: Results Start: 04-24-2022 ambulatory Gail Ordoñez RT(R) [facility] Comment on above: Radiology [place] Start: 04-24-2022 Patient encounter procedure Gail Ordoñez RT(R) [facility] Start: 04-24-2022 Telephone encounter Nayana Hoang MD Work Phone: [facility] Comment on above: Returning Patient's Call Start: 04-24-2022 End: 04-24-2022 Patient encounter status Prep [facility] Nuclear Medicin e Start: 04-24-2022 End: 04-24-2022 Subsequent hospital visit by physician Prep Room 1 [facility] Comment on above: Primary hypertension [I10] Start: 04-21-2022 Refill Nayana Hoang MD Work Phone: [facility] Comment on above: Refill Request Start: 04-20-2022 Refill Nayana Hoang MD Work Phone: [facility] Comment on above: Refill Request Start: 04-17-2022 Refill Nayana Hoang MD Work Phone: [facility] Comment on above: Refill Request Start: 04-13-2022 End: 04-13-2022 Office outpatient new 45 minutes Maddison Miller MD Work Phone: [facility] Comment on above: Primary hypertension (Primary Dx); Obstructive sleep apnea (adult) (pediatric); ABRAMS (dyspnea on exertion); Arthralgia of shoulder region, left; Preoperative cardiovascular examination; Abnormal EKG; Mixed hyperlipidemia; Myalgia due to statin Start: 04-13-2022 End: 04-13-2022 Patient encounter status Maddison Miller MD Work Phone: [facility] Work Phone: Start: 04-12-2022 Telephone encounter Maddison Miller MD Work Phone: [facility] Comment on above: Appointment (Cancel / Reschedule) Start: 04-11-2022 Chart abstracting Kelly Moya MA [facility] Comment on above: Abstract (Patient ch art updated before appointment on 04/13/2022) Start: 04-04-2022 Preoperative state Nayana Hoang MD Work Phone: [facility] Start: 04-04-2022 Telephone encounter Nayana Hoang MD Work Phone: [facility] Comment on above: Patient Update Appointment; Cardiac Clearance Start: 04-03-2022 End: 04-03-2022 Admission to establishment [place] [id number] Work Phone: [facility] Start: 04-03-2022 End: 04-03-2022 ambulatory Pac 2 Work Phone: Pre Anesthesia Comment on above: Preop testing (Prima ry Dx) Start: 04-03-2022 End: 04-03-2022 Patient encounter status Pac 2 Work Phone: Pre Anesthesia Start: 03-21-2022 Telemedicine consult ation with patient Nayana Hoang MD Work Phone: [facility] Comment on above: Anxiety with depress ion (Primary Dx) Start: 03-20-2022 Refill Nayana Hoang MD Work Phone: [facility] Comment on above: Refill Request Start: 03-16-2022 Refill Nayana Hoang MD Work Phone: [facility] Comment on above: Refill Request Start: 02-21-2022 End: 02-21-2022 Patient encounter procedure Nayana Hoang MD Work Phone: [facility] Comment on above: Hypertension, unspec ified type (Primary Dx); Hyperlipidemia, unspecified hyperlipidemia type; Radiculopathy, lumbar region; Acquired hypothyroidism; Prediabetes; Morbid obesity with BMI of 40.0-44.9, adult (HCC); Osteoarthritis of multiple joints, unspecified osteoarthritis type; Stage 3a chronic kidney disease (HCC); Encounter for immunization; Vitamin D deficiency; Encounter for screening mammogram for breast cancer; Scoliosis, unspecified scoliosis type, unspecified spinal region Start: 10-26-2021 ambulatory Maegan Garrett RN [facility] Station Engineer Chief Comment on above: Primary Care Coordin ator- Other Start: 10-04-2021 Refill Nayana Hoang MD Work Phone: [facility] Comment on above: Refill Request; Refi ll Request Start: 09-19-2021 End: 09-19-2021 Office outpatient visit 15 minutes Tasha Worthington MD Work Phone: [facility] Comment on above: VALERIE on CPAP (Primary Dx); Morbid obesity (HCC) Start: 08-15-2021 Refill Nayana Hoang MD Work Phone: [facility] Comment on above: Refill Request; Refi ll Request Start: 08-12-2021 Refill Nayana Hoang MD Work Phone: [facility] Comment on above: Refill Request Start: 06-28-2021 End: 06-28-2021 Subsequent hospital visit by physician Nayana Hoang MD Work Phone: [facility] Comment on above: Z87.442,M19.90,E55.9 Start: 05-28-2021 End: 05-28-2021 Subsequent hospital visit by physician Marge Milan Work Phone: [facility] Comment on above: B/L EAR PAIN,CONGEST ION,HEADACHE,COUGH Procedures Date Procedure Procedure Detail Performing Clinician Start: 06-30-2024 Complete ultrasound of kidneys and bladder NAYANA HOANG Work Phone: Start: 05-12-2023 Lipid 1996 panel - S tati or Plasma Nayana Hoang MD Work Phone: Start: 04-25-2023 Screening mammograph y bi 2-view breast inc cad Nayana Hoang MD Work Phone: Start: 04-24-2022 Myocardial spect mul tiple studies Maddison Miller MD Work Phone: Start: 04-03-2022 Antibody screen Pacc 2 Work Phone: Start: 04-03-2022 Iadna s aureus ampli fied probe tq Kami Fichter CELL TENDER.NIGHT CLEANER Work Phone: Start: 04-03-2022 Ecg routine ecg w/le ast 12 lds i&r only Thai Avila MD Work Phone: Start: 04-03-2022 Antibody screen rbc each serum technique Thai Avila MD Work Phone: Start: 04-03-2022 Thromboplastin time partial plasma/whole blood Thai Avila MD Work Phone: Start: 02-21-2022 INFLUENZA VACCINE QUADRIVALENT 6 MO - 64 YRS IM Nayana Hoang MD Work Phone: Start: 06-28-2021 Lipid 1996 panel - S tati or Plasma Nayana Hoang MD Work Phone: Start: 11-25-2019 Mammography Nayana valladares MD Work Phone: Plan of Treatment Date Care Activity Detail Author Start: 05-11-2028 Lipid panel Lipid Screening [facility] Start: 06-28-2026 Lipid panel Lipid Screening [facility] Start: 06-28-2026 L[address] SCREEN L[address]ID SCREEN [facility] Start: 05-11-2026 Diabetes Screening Diabetes Screenin g [facility] Start: 04-07-2025 Annual PCP Team Forest Fire Control Officer asuncion Disease Visit Annual PCP Team Chronic Disease Visit [facility] Start: 04-07-2025 Anxiety Screening Anxiety Screening [facility] Comment on above: Postponed from 07/23 (Postponed To Appropriate Date) Start: 04-07-2025 Covid-19 Vaccine ( season) Covid-19 Vaccine ( season) [facility] Comment on above: Postponed from 10/20 (Declined at this time) Start: 04-07-2025 Pneumococcal Vaccine : 50+ (2 of 2 - PPSV23) Pneumococcal Vaccine: 50+ (2 of 2 - PPSV23) [facility] Comment on above: Postponed from 07/01 (Declined at this time) Start: 04-03-2025 DIABETES SCREEN DIABETES SCREEN [facility] Start: 04-03-2025 Diabetes Screening Diabetes Screenin g [facility] Start: 12-14-2024 DIABETES SCREEN DIABETES SCREEN [facility] Start: 10-20-2024 Influenza vaccination Influenz a Vaccine (Season Ended) [facility] Start: 09-14-2024 DIABETES SCREEN DIABETES SCREEN [facility] Start: 08-18-2024 Influenza vaccination Influenza Vacc ine (#1) [facility] Comment on above: Postponed from 10/20 (Declined at this time) Start: 08-07-2024 End: 08-07-2024 Patient encounter procedure 08/07/2024 8:45 AM EDT Office Visit [facility] [address] [facility] [address] [place] [phone] Nayana Hoang MD [address] [place] [address] medicare wellness [facility] [place] Comment on above: medicare wellness Start: 06-28-2024 DIABETES SCREEN DIABETES SCREEN [facility] Start: 05-14-2024 Annual PCP Team Forest Fire Control Officer asuncion Disease Visit Annual PCP Team Chronic Disease Visit [facility] Start: 05-11-2024 Creatinine measurement Serum Creatin ine [facility] Start: 05-05-2024 COLOGUARD (FIT-DNA) COLOGUARD (FIT-D NA) [facility] Start: 05-05-2024 COLORECTAL CANCER SCREENING COLORECTAL CANCER SCREENING [facility] Start: 05-05-2024 Screening for malign ant neoplasm of colon [facility] Start: 04-24-2024 Screening for malign ant neoplasm of breast Mammogram Screening [facility] Start: 04-07-2024 End: 04-07-2024 Patient encounter procedure 04/07/2024 10:20 AM EST Office Visit [facility] [place] [address] [facility] [place] [phone] Mimi Ivy, CELL TENDER.NIGHT CLEANER [address] [place] [phone] MEDICARE WELLNESS [facility] [place] Comment on above: MEDICARE WELLNESS Start: 02-20-2024 Advance Directive Discussion Advance Directive Discussion [facility] Start: 01-11-2024 End: 01-11-2024 Patient encounter procedure 01/11/2024 11:00 AM EST Office Visit [facility] [place] [address] [place] [phone] Mimi Ivy, CELL TENDER.NIGHT CLEANER [address] [place] [phone] Medicare annual visit [facility] [place] Comment on above: Medicare annual visi t Start: 11-19-2023 End: 11-19-2023 Patient encounter procedure 11/19/2023 11:30 AM EDT Office Visit [facility] [place] [address] [place] [phone] Nayana Hoang MD [address] [address] medicare wellness [facility] [place] Comment on above: medicare wellness Start: 10-21-2023 Covid-19 Vaccine () Covid-19 Vaccine () [facility] Start: 10-21-2023 Covid-19 Vaccine () Covid-19 Vaccine () [facility] Start: 10-21-2023 Influenza vaccination [facility] Start: 10-03-2023 ANNUAL PCP TEAM PLUNGER MACHINE OPERATOR ASUNCION DISEASE VISIT ANNUAL PCP TEAM CHRONIC DISEASE VISIT [facility] Start: 09-11-2023 End: 09-11-2023 Patient encounter procedure [facility] [place] Comment on above: medicare wellness Start: 08-19-2023 Influenza vaccination Influenza Vacc ine (#1) [facility] Comment on above: Postponed from 10/20 (Declined at this time) Start: 07-04-2023 ANNUAL PCP TEAM PLUNGER MACHINE OPERATOR ASUNCION DISEASE VISIT ANNUAL PCP TEAM CHRONIC DISEASE VISIT [facility] Start: 07-04-2023 BP CONTROLLED (<130/80) BP CONTROLLE D (<130/80) [facility] Start: 05-27-2023 ANNUAL PCP TEAM PLUNGER MACHINE OPERATOR ASUNCION DISEASE VISIT ANNUAL PCP TEAM CHRONIC DISEASE VISIT [facility] Start: 04-10-2023 ANNUAL PCP TEAM PLUNGER MACHINE OPERATOR ASUNCION DISEASE VISIT ANNUAL PCP TEAM CHRONIC DISEASE VISIT [facility] Start: 04-10-2023 BP CONTROLLED (<130/80) BP CONTROLLE D (<130/80) [facility] Start: 04-10-2023 COVID-19 VACCINE (4 - Booster for Deepa series) COVID-19 VACCINE (4 - Booster for Deepa series) [facility] Comment on above: Postponed from 07/27 (Declined at this time) Start: 04-10-2023 HEPATITIS C SCREENING HEPATITIS C [facility] Comment on above: Postponed from 07/23 (Declined at this time) Start: 04-10-2023 HIV SCREENING HIV SCREENING [facility] Comment on above: Postponed from 07/23 (Declined at this time) Start: 04-10-[address] [facility] Comment on above: Postponed from 07/23 (Declined at this time) Start: 04-10-2023 PAP TESTING PAP TESTING [facility] Comment on above: Postponed from 07/23 (Declined at this time) Start: 04-10-2023 SHINGRIX VACCINE (1 of 2) SHINGRIX VACCINE (1 of 2) [facility] Comment on above: Postponed from 07/23 (Declined at this time) Start: 04-10-[address] [facility] Comment on above: Postponed from 07/23 (Declined at this time) Start: 04-03-2023 BP CONTROLLED (<130/80) BP CONTROLLE D (<130/80) [facility] Start: 04-03-2023 Complete blood count Hemoglobin/Negrito tocrit [facility] Start: 04-03-2023 Creatinine measurement Serum Creatin ine [facility] Start: 04-03-2023 HEMOGLOBIN/HEMATOCRIT HEMOGLOBIN/HEM ATOCRIT [facility] Start: 04-03-2023 SERUM CREATININE SERUM CREATININE [facility] Start: 02-21-2023 ANNUAL PCP TEAM PLUNGER MACHINE OPERATOR ASUNCION DISEASE VISIT ANNUAL PCP TEAM CHRONIC DISEASE VISIT [facility] Start: 02-19-2023 Advance Directive Discussion Advance Directive Discussion [facility] Start: 12-14-2022 SERUM CREATININE SERUM CREATININE [facility] Start: 10-20-2022 Covid-19 Vaccine ( season) Covid-19 Vaccine ( season) [facility] Start: 10-20-2022 Influenza vaccination [facility] Start: 2022 ADVANCE DIRECTIVE DISCUSSION ADVANCE DIRECTIVE DISCUSSION [facility] Start: 2022 Pneumococcal Vaccine : 65+ (2 of 2 - PPSV23 or PCV20) Pneumococcal Vaccine: 65+ (2 of 2 - PPSV23 or PCV20) [facility] Start: 2022 PNEUMOCOCCAL: 65+ (2 - PPSV23 if available, else PCV20) PNEUMOCOCCAL: 65+ (2 - PPSV23 if available, else PCV20) [facility] Start: 2022 PNEUMOCOCCAL: 65+ (2 - PPSV23 or PCV20) PNEUMOCOCCAL: 65+ (2 - PPSV23 or PCV20) [facility] Start: 07-03-2022 End: 07-04-2023 25-hydroxyvitamin D3 [Mass/volume] in Serum or Plasma VITAMIN D 25 HYDROXY Lab Routine Vitamin D deficiency Expected: 07/03/2022, Expires: 07/04/2023 [facility] Work Phone: Comment on above: Expected: 07/03/2022 , Expires: 07/04/2023 Start: 07-03-2022 End: 07-04-2023 CBC panel - Blood by Automated count CBC Lab Routine Stage 3a chronic kidney disease (HCC) Hyperlipidemia, unspecified hyperlipidemia type Expected: 07/03/2022, Expires: 07/04/2023 [facility] Work Phone: Comment on above: Expected: 07/03/2022 , Expires: 07/04/2023 Start: 07-03-2022 End: 07-04-2023 Comprehensive metabolic 2000 panel - Serum or Plasma COMP METABOLIC PANEL Lab Routine Stage 3a chronic kidney disease (HCC) Hyperlipidemia, unspecified hyperlipidemia type Expected: 07/03/2022, Expires: 07/04/2023 [facility] Work Phone: Comment on above: Expected: 07/03/2022 , Expires: 07/04/2023 Start: 07-03-2022 End: 07-04-2023 Hemoglobin A1c in Blood HGB A1C Lab Routine Prediabetes Expected: 07/03/2022, Expires: 07/04/2023 [facility] Work Phone: Comment on above: Expected: 07/03/2022 , Expires: 07/04/2023 Start: 07-03-2022 End: 07-04-2023 Lipid 1996 panel - Serum or Plasma LIPID PANEL BASIC Lab Routine Hyperlipidemia, unspecified hyperlipidemia type Expected: 07/03/2022, Expires: 07/04/2023 [facility] Work Phone: Comment on above: Expected: 07/03/2022 , Expires: 07/04/2023 Start: 07-03-2022 End: 07-04-2023 Thyrotropin [Units/volume] in Serum or Plasma TSH BLD Lab Routine Acquired hypothyroidism Expected: 07/03/2022, Expires: 07/04/2023 [facility] Work Phone: Comment on above: Expected: 07/03/2022 , Expires: 07/04/2023 Start: 06-28-2022 HEMOGLOBIN/HEMATOCRIT HEMOGLOBIN/HEM ATOCRIT [facility] Start: 05-26-2022 End: 05-26-2023 Hepatitis C virus Ab [Presence] in Serum HEP C AB IA W/CONF SCRN Lab Routine Special screening examination for viral disease Expected: 05/26/2022, Expires: 05/26/2023 [facility] Work Phone: Comment on above: Expected: 05/26/2022 , Expires: 05/26/2023 Start: 05-26-2022 End: 05-26-2023 HIV 1+2 Ab [Presence] in Serum or Plasma by Immunoassay HIV 1 2 COMBO(AG/AB),WITH REFLEX TO DIFFERENTIATION Lab Routine Screening for HIV (human immunodeficiency virus) Expected: 05/26/2022, Expires: 05/26/2023 [facility] Work Phone: Comment on above: Expected: 05/26/2022 , Expires: 05/26/2023 Start: 02-21-2022 End: 02-21-2023 25-hydroxyvitamin D3 [Mass/volume] in Serum or Plasma VITAMIN D 25 HYDROXY Lab Routine Vitamin D deficiency Expected: 02/21/2022, Expires: 02/21/2023 [facility] Work Phone: Comment on above: Expected: 02/21/2022 , Expires: 02/21/2023 Start: 02-21-2022 End: 02-21-2023 ALBUMIN/CREAT RATIO RND UR ALBUMIN/CREAT RATIO RND UR Lab Routine Stage 3a chronic kidney disease (HCC) Expected: 02/21/2022, Expires: 02/21/2023 [facility] Work Phone: Comment on above: Expected: 02/21/2022 , Expires: 02/21/2023 Start: 02-21-2022 End: 02-21-2023 CBC panel - Blood by Automated count CBC Lab Routine Hypertension, unspecified type Expected: 02/21/2022, Expires: 02/21/2023 [facility] Work Phone: Comment on above: Expected: 02/21/2022 , Expires: 02/21/2023 Start: 02-21-2022 End: 02-21-2023 Comprehensive metabolic 2000 panel - Serum or Plasma COMP METABOLIC PANEL Lab Routine Hypertension, unspecified type Expected: 02/21/2022, Expires: 02/21/2023 [facility] Work Phone: Comment on above: Expected: 02/21/2022 , Expires: 02/21/2023 Start: 02-21-2022 End: 02-21-2023 Hemoglobin A1c in Blood HGB A1C Lab Routine Prediabetes Expected: 02/21/2022, Expires: 02/21/2023 [facility] Work Phone: Comment on above: Expected: 02/21/2022 , Expires: 02/21/2023 Start: 02-21-2022 End: 02-21-2023 Lipid 1996 panel - Serum or Plasma LIPID PANEL BASIC Lab Routine Hyperlipidemia, unspecified hyperlipidemia type Expected: 02/21/2022, Expires: 02/21/2023 [facility] Work Phone: Comment on above: Expected: 02/21/2022 , Expires: 02/21/2023 Start: 02-21-2022 End: 02-21-2023 Thyrotropin [Units/volume] in Serum or Plasma TSH BLD Lab Routine Acquired hypothyroidism Expected: 02/21/2022, Expires: 02/21/2023 [facility] Work Phone: Comment on above: Expected: 02/21/2022 , Expires: 02/21/2023 Start: 10-20-2021 Influenza vaccination C [facility] Start: 07-27-2021 COVID-19 VACCINE (4 - Booster for Deepa series) COVID-19 VACCINE (4 - Booster for Deepa series) [facility] Start: 07-01-2021 Pneumococcal Vaccine : 50+ (2 of 2 - PPSV23) Pneumococcal Vaccine: 50+ (2 of 2 - PPSV23) [facility] Start: 11-24-[address] [facility] Start: 11-24-2020 Screening for malign ant neoplasm of breast Mammogram Screening [facility] Start: 2017 RSV Vaccine (1 - 1-d ose 60+ series) RSV Vaccine (1 - 1-dose 60+ series) [facility] Start: 04-16-2016 DIABETES SCREEN DIABETES SCREEN [facility] Start: 07-24-2007 SHINGRIX VACCINE (1 of 2) SHINGRIX VACCINE (1 of 2) [facility] Start: 2002 COLOGUARD (FIT-DNA) COLOGUARD (FIT-D NA) [facility] Start: [address] [facility] Start: 2002 COLORECTAL CANCER SCREENING COLORECTAL CANCER SCREENING [facility] Start: [address] COLONOGRAPHY [facility] Start: 2002 FECAL OCCULT BLOOD FECAL OCCULT BLOO D [facility] Start: 2002 LIPID SCREEN LIPID SCREEN [facility] Start: 2002 Screening for malign ant neoplasm of colon [facility] Start: 2002 SIGMOIDOSCOPY SIGMOIDOSCOPY [facility] Start: [address] [facility] Start: 07-24-1987 HPV TEST[address] TESTING [facility] Start: 1978 PAP TESTING PAP TESTING [facility] Start: [address] [facility] Start: 07-24-1975 Anxiety Screening Anxiety Screening [facility] Start: 07-24-1975 BP CONTROLLED (<130/80) BP CONTROLLE D (<130/80) [facility] Start: 07-24-1975 HEPATITIS C SCREENING HEPATITIS C [facility] Start: 07-24-1975 Hepatitis C screening Hepatitis C [facility] Start: 07-24-1975 HIV SCREENING HIV SCREENING [facility] Start: 07-24-1975 HIV screening HIV Screening [facility] Start: 1969 Adult depression screening assessment DEPRESSION SCREENING [facility] Start: 1962 COVID-19 VACCINE (1) COVID-19 VACCIN E (1) [facility] End: 07-03-2025 DBT Breast - bilateral screening LINDA SCREENING [facility] Radiology Routine Encounter for screening mammogram for breast cancer 1 Occurrences starting 06/03/2024 until 07/03/2025 [facility] Work Phone: Comment on above: 1 Occurrences starti ng 06/03/2024 until 07/03/2025 End: 03-23-2023 LINDA SCREENING LINDA SCREENING Radiology Routine Encounter for screening mammogram for breast cancer 1 Occurrences starting 02/21/2022 until 03/23/2023 [facility] Work Phone: Comment on above: 1 Occurrences starti ng 02/21/2022 until 03/23/2023 End: 05-17-2024 MG Breast Screening LINDA SCREENING Radiology Routine Encounter for screening mammogram for breast cancer 1 Occurrences starting 04/18/2023 until 05/17/2024 [facility] Work Phone: Comment on above: 1 Occurrences starti ng 04/18/2023 until 05/17/2024 NM CARDIAC PERF STRESS/PHARM NM CARDIAC PERF STRESS/PHARM Radiology Routine Primary hypertension Obstructive sleep apnea (adult) (pediatric) ABRAMS (dyspnea on exertion) Arthralgia of shoulder region, left Preoperative cardiovascular examination Abnormal EKG 04/24/2022 10:10 AM EST [facility] Work Phone: End: 03-23-2023 Radex entir thrc lmbr crv sac spi w/skull 1 vw XR SCOLIOSIS PA STAND 1V Radiology Routine Scoliosis, unspecified scoliosis type, unspecified spinal region 1 Occurrences starting 02/21/2022 until 03/23/2023 [facility] Work Phone: Comment on above: 1 Occurrences starti ng 02/21/2022 until 03/23/2023 [facility] Immunizations Immunization Date Immunization Notes Care Provider Yaron robles 02-21-2022 influenza, injectabl e, quadrivalent, contains preservative Nayana Hoang MD Work Phone: [facility] 02-21-2022 influenza virus vacc ine, unspecified formulation Nayana Hoang MD Work Phone: [facility] 06-01-2021 COVID-19 vaccine, fu ll dose (MODERNA) Nayana Hoang MD Work Phone: [facility] 01-10-2021 COVID-19 vaccine, fu ll dose (MODERNA) Nayana Hoang MD Work Phone: [facility] 12-30-2020 Influenza, injectabl e, Madin [place] Canine Kidney, preservative free, quadrivalent Nayana Hoang MD Work Phone: [facility] 07-01-2020 pneumococcal conjuga te vaccine, 13 valent Nayana Hoang MD Work Phone: [facility] 04-27-2020 COVID-19 vaccine (DEEPA) Nayana Hoang MD Work Phone: [facility] 12-23-2019 influenza, injectabl e, quadrivalent, preservative free Nayana Hoang MD Work Phone: [facility] 01-07-2019 influenza nasal, unspecified formulation Nayana Hoang MD Work Phone: [facility] 02-28-2018 influenza, injectabl e, quadrivalent, preservative free Nayana Hoang MD Work Phone: [facility] Payers Date Payer Category Payer Self-pay 2023 Medicare (Managed Care) [facility] MEDICARE HMO [id number] 2022 Medicare [id number] 2021 Medicare [id number] [facility] A[facility]ICAR [facility] AARP MEDICARE O [id number] 2021-Present [phone] [address] [address] [place] [address] O [id number] 2021 Medicare [id number] 2018 Medicare HUMANA MEDICARE HUMANA MEDICARE PPO [id number] 2018-Present [phone] [address] [address] [place] [address] PPO [id number] Unknown [id number] Unknown [id number] Social History Date Type Detail Facility Start: 12-13-2015 End: 02-21-2022 Tobacco smoking status AZIS Never smoked tobacco [facility] Start: 03-02-2016 End: 04-07-2024 Alcohol intake Current drinker of alcohol (finding) [facility] Start: 1955 Sex Assigned At Not on file [facility] Start: 07-22-2021 End: 12-14-2021 Exposure to SARS-CoV-2 (event) Not sure [facility] Start: 04-03-2022 Tobacco smoking status AZIS Ex-smoker [facility] Start: 02-18-1979 End: 02-18-1999 History of tobacco use Current smoker [facility] Start: 02-18-1979 End: 02-18-1999 History of tobacco use Cigarette Smoker [facility] Start: 04-03-2022 End: 07-03-2022 Cigarettes smoked current (pack per day) - Reported 1 [facility] History of tobacco use Passive smoker [facility] Start: 03-30-2022 Alcohol [address] [facility] Start: 07-03-2022 End: 10-02-[address] [facility] National Score (1-10 0), lower number is lower risk 83 [facility] Start: 1955 Sex Assigned At Female [facility] Start: 10-02-2022 Gender identity Identifies as female gender (finding) [facility] Start: 10-02-2022 Sexual orientation Heterosexual (finding) [facility] Has the [employer], [employer], or water [employer] threatened to shut off services in your home in past 12Mo No [facility] Are you now , , , , never or living with a partner? [facility] How often to you hav e a drink containing alcohol? Monthly or less [facility] How many standard drinks containing alcohol do you have on a typical day? [address] [facility] How often do you hav e 6 or more drinks on 1 occasion? Never [facility] Do you feel stress - tense, restless, nervous, or anxious, or unable to sleep at night because your mind is troubled all the time - these days [OSQ] Only a little [facility] (I/We) worried wheth er (my/our) food would run out before (I/we) got money to buy more. Never true [facility] Tobacco smoking stat us NHIS Unknown if ever smoked [facility] Work Phone: Medical Equipment Procedure Code Equipment Code Equipment Origin al Text Equipment Identifier Dates Equinox Glenosphere/Extended Locking Cap 38mm [id number] Start: 04-27-2022 Liner Equinoxe 3 8mm +0mm Humeral Reverse Shoulder - [id number] Start: 04-27-2022 Plate Equinoxe Standard Glenoid Reverse - [id number] Start: 04-27-2022 Kit Screw Revers e Torque Define Shoulder - [id number] Start: 04-27-2022 Stem Equinoxe 11 mm Humeral Press Fit Primary Shoulder - [id number] Start: 04-27-2022 Tray Equinoxe +0 mm Humeral Adapter Reverse Shoulder System - [id number] Start: 04-27-2022 Screw Equinoxe 4 .5mm Black 22mm Bone Kit Compression Lock Cap Reverse - [id number] Start: 04-27-2022 Screw Equinoxe 4 .5mm Red 34mm Bone Kit Compression Lock Cap Reverse - [id number] Start: 04-27-2022 Screw Equinoxe 4 .5mm Black 22mm Bone Kit Compression Lock Cap Reverse - [id number] Start: 04-27-2022 Screw Equinoxe 4 .5mm Black 22mm Bone Kit Compression Lock Cap Reverse - [id number] Start: 04-27-2022 Screw Equinoxe 4 .5mm Black 22mm Bone Kit Compression Lock Cap Reverse - [id number] Start: 04-27-2022 Screw Equinoxe B one Lock Reverse Shoulder Glenosphere - [id number] Start: 04-27-2022 Clinical Notes 08-12-2021 to 06-30-2024 Jim Washington Jr., CELL TENDER.NIGHT CLEANER - 06/05/2024 8:23 PM EDTPatient Mimi Hernandez, CELL TENDER.NIGHT CLEANER - 04/07/2024 10:53 AM ESTTelephone Encounter - Nayana Hoang MD - 01/24/2024 9:11 AM EST Note Date & Type Note Facility 06-30-2024 Radiology Diagnostic study note [facility] Imaging Services [address] [place] [address] Kidney and Bladder MR#: [id number] Acct: [id number] Name: NEVILLE PATEL Rep #: [id number] : 1955 F 68 From: Ru Hernandez MD PCP: NAYANA HOANG Status: REG CLI Study:Kidney and Bladder Date of Exam: 0 06/30/24 Exam# [id number] Ordering Dr: Guerda Null MD PROCEDURE: KIDNEY AND BLADDER 06/30/2024 REASON FOR EXAM: STONES, LT FLANK PAIN TECHNIQUE: Bilateral renal ultrasound. COMPARISON: Prior study dated August 08, 2021. FINDINGS: Kidneys: Bilateral renal calculi. [place]: No hydronephrosis. Cysts or Masses: No cysts or large solid renal masses. RIGHT Kidney Size: 10 cm x 4.5 cm x 4.7 cm Volume: 382.3 mL Cortical Thickness (if discernible): 1.3 cm (>6mm is normal) There are 3 nonobstructive intrarenal calculi. The largest measures 5 mm. LEFT Kidney Size: 10.3 cm x 5 cm x 5.6 cm Volume: 153.08 mL Cortical Thickness (if discernible): 1.6 cm (>6mm is normal) There is an 8 mm nonobstructive calculus. US/Kidney and Bladder IMPRESSION: Small bilateral nonobstructive intrarenal calculi. Reading Location: [facility] CC: NAYANA HOANG; Dr. Guerda Null MD ~ Operations Manager Station: Signed [facility] 06-05-2024 Note HNO ID: [id number] Author: JIM WASHINGTON JR, APRN.NIGHT CLEANER Service: ? Author Type: Nurse Practitioner Type: Progress Notes Filed: 06/05/2024 20:26 Note Text: [facility] JAIME Patel is a 68 year old female. Patient presents with: Sore Throat: Sore throat x 3 days, right side of face swelling today Sore Throat Sore Throat and Ear Pain: - Sore throat and bilateral ear pain onset prior to facial swelling. - Believes ear pain is secondary to throat and sinus issues; denies ear infection. - Denies eye pain, redness, or watering. - Denies fever; baseline temperature is 96.5?F. Facial Swelling: - Noticed a lump on the face today, initially the size of a quarter, now extending down the face. - Swelling is hard and causing discomfort with glasses. - Denies trauma or injury to the eye. - Applied ice with no relief. - Denies tooth pain; applied Anbesol to upper gums without effect. - Recent history of influenza A. - History of jaw surgeries with screws in place. Review of Systems HENT: Positive for sore throat. Constitutional: (+) fever Head: (+) facial swelling Eyes: (-) eye pain, (-) eye redness, (-) tearing Ears/Nose/Mouth/Throat: (+) ear pain, (+) sore throat, (+) sinus discomfort, (-) tooth pain Objective BP 138/72 Pulse 102 Temp 36.9 ?C (98.4 ?F) Resp 18 Wt 111.1 kg (245 lb) SpO2 97% BMI 47.85 kg/m? Physical Exam General: No acute distress. HEENT: Bilateral external auditory canals with cerumen, unable to visualize tympanic membrane on one side; tonsils hypertrophied and erythematous without exudate; hard, tender swelling palpated on face; clear rhinorrhea; sclerae anicteric. CV: Regular rhythm, no murmurs, rubs, or gallops. Resp: Clear to auscultation bilaterally. Abd: Non-tender, normal bowel sounds. Assessment AND Plan Bacterial sinusitis Based on examination I diagnosed patient with a bacterial sinusitis. I would consider the facial edema secondary to an infection in one of the teeth in the right upper jaw. I prescribed patient Augmentin as this will cover that area and patient informed to follow-up with her PCP if symptoms do not improve any severe symptoms go immediately to the emergency room. Orders: amoxicillin-clavulanate potassium (AUGMENTIN) 875-125 mg per tablet; Take 1 tablet by mouth every 12 hours for 7 days. Jaw pain, non-TMJ { and Recording using [employer] software for draft documentation of the visit was discussed with the patient/authorized personal financial representative; all questions welcomed and answered. Patient/authorized personal financial representative agreed to proceed Differential Diagnoses - Sinusitis is more likely for the following reason(s): suggested by HANDP Disposition The patient was discharged. Procedures [facility] 06-05-2024 History of Presen t illness Narrative [facility] JAIME Patel is a 68 year old female. Patient presents with: Sore Throat: Sore throat x 3 days, right side of face swelling today Sore Throat Sore Throat and Ear Pain: - Sore throat and bilateral ear pain onset prior to facial swelling. - Believes ear pain is secondary to throat and sinus issues; denies ear infection. - Denies eye pain, redness, or watering. - Denies fever; baseline temperature is 96.5 F. Facial Swelling: - Noticed a lump on the face today, initially the size of a quarter, now extending down the face. - Swelling is hard and causing discomfort with glasses. - Denies trauma or injury to the eye. - Applied ice with no relief. - Denies tooth pain; applied Anbesol to upper gums without effect. - Recent history of influenza A. - History of jaw surgeries with screws in place. Review of Systems HENT: Positive for sore throat. Constitutional: (+) fever Head: (+) facial swelling Eyes: (-) eye pain, (-) eye redness, (-) tearing Ears/Nose/Mouth/Throat: (+) ear pain, (+) sore throat, (+) sinus discomfort, (-) tooth pain Objective BP 138/72 Pulse 102 Temp 36.9 C (98.4 F) Resp 18 Wt 111.1 kg (245 lb) SpO2 97% BMI 47.85 kg/m Physical Exam General: No acute distress. HEENT: Bilateral external auditory canals with cerumen, unable to visualize tympanic membrane on one side; tonsils hypertrophied and erythematous without exudate; hard, tender swelling palpated on face; clear rhinorrhea; sclerae anicteric. CV: Regular rhythm, no murmurs, rubs, or gallops. Resp: Clear to auscultation bilaterally. Abd: Non-tender, normal bowel sounds. Assessment & Plan Bacterial sinusitis Based on examination I diagnosed patient with a bacterial sinusitis. I would consider the facial edema secondary to an infection in one of the teeth in the right upper jaw. I prescribed patient Augmentin as this will cover that area and patient informed to follow-up with her PCP if symptoms do not improve any severe symptoms go immediately to the emergency room. Orders: amoxicillin-clavulanate potassium (AUGMENTIN) 875-125 mg per tablet; Take 1 tablet by mouth every 12 hours for 7 days. Jaw pain, non-TMJ { and Recording using [employer] software for draft documentation of the visit was discussed with the patient/authorized personal financial representative; all questions welcomed and answered. Patient/authorized personal financial representative agreed to proceed Differential Diagnoses - Sinusitis is more likely for the following reason(s): suggested by H&P Disposition The patient was discharged. Procedures documented in this encounter [facility] 06-05-2024 Instructions Jim Washington Jr., APRN.CNP - 06/05/2024 7:41 PM EDT Take medications as prescribed. Follow-up with PCP or return if symptoms do not resolve visit Urgent Care. documented in this encounter [facility] 06-03-2024 Note Patient Outreach (FA MAAR) NEVILLE PATEL ([id number]) 1955 F Date Time Provider Department 06/03/24 NAYANA HOANG During your visit today, we recorded the following information about you: Allergies As of Date: 06/03/2024 Noted Allergy Reaction ADHESIVE TAPE-SILICONES 09/19/2021 2 - Rash Comments: Rash ASPIRIN 09/19/2021 14 - Other: See Comments Comments: Upset stomach, has to take enteric aspirin. COLESEVELAM 10/21/2015 8 - GI Upset EZETIMIBE 10/21/2015 14 - Other: See Comments FENOFIBRATE NANOCRYSTALLIZED 10/21/2015 8 - GI Upset MORPHINE 09/19/2021 14 - Other: See Comments Comments: Flushing NSAIDS (NON-STEROIDAL ANTI-INFLAM*12/13/2015 8 - GI Upset [id number] REDUCTASE INHIBIT*04/03/2022 8 - GI Upset 17 - Myalgia SULFA (SULFONAMIDE ANTIBIOTICS) 12/13/2015 11 - Vomiting Date Reviewed: 04/07/2024 Reviewed by: Mimi Ivy APRN.NIGHT CLEANER - Fully Assessed Visit Diagnosis:Encounter for screening mammogram for breast cancer [Z12.31] Order(s):[facility] SCREENING [facility] [[id number]] Order #: [id number] FUTURE Prescriptions as of 07/04/2024 - liothyronine (CYTOMEL) 5 mcg tablet TAKE 3 TABLETS BY MOUTH DAILY IN THE MORNING - metoprolol succinate ER (TOPROL XL) 25 mg 24 hr tablet TAKE 1 TABLET BY MOUTH ONCE DAILY - VITAMIN D2 1,250 mcg (50,000 unit) capsule TAKE 1 CAPSULE BY MOUTH EVERY 2 WEEKS - ubidecarenone (COENZYME Q10) 100 mg tab Take 1 Each by mouth once daily. - Benzonatate 200 mg capsule Take 1 capsule by mouth three times a day as needed. - cyclobenzaprine (FLEXERIL) 10 mg tablet Take 1 tablet by mouth three times a day as needed. - venlafaxine ER (EFFEXOR XR) 75 mg 24 hr capsule Take 3 capsules by mouth once daily. - venlafaxine ER (EFFEXOR XR) 75 mg 24 hr capsule Take 3 capsules by mouth once daily. - buPROPion (WELLBUTRIN) 100 mg tablet TAKE 1 TABLET BY MOUTH TWICE DAILY - Bacillus coagulans-Inulin (PROBIOTIC WITH PREBIOTIC) 1 billion-250 cell-mg cap Take 1 tablet by mouth daily at bedtime. - diclofenac sodium 1 % kit Apply to affected area as needed. FOR ARTHRITIS Problem List As Of Date 06/03/2024 Noted Resolved Radiculopathy, lumbar region [M54.16] 12/13/2015 Morbid obesity with BMI of 40.0-44.9, adult (HC*02/16/2022 Personal history of urinary calculi [Z87.442] 12/14/2021 Obstructive sleep apnea (adult) (pediatric) [G4*09/19/2021 Acne rosacea [L71.9] 02/28/2018 08/14/2022 Acquired hypothyroidism [E03.9] 10/21/2015 Chronic allergic conjunctivitis [H10.45] 10/21/2015 Esophageal reflux [K21.9] 10/21/2015 08/14/2022 Chronic low back pain [M54.50, G89.29] 01/07/2019 Hypertension, essential [I10] 10/27/2015 History of shoulder surgery [Z98.890] 02/02/2017 Combined hyperlipidemia [E78.2] 10/21/2015 Impaired fasting glucose [R73.01] 12/15/2020 Idiopathic scoliosis [M41.20] 02/02/2016 Major depressive disorder, recurrent severe wit*10/21/2015 Migraine headache [G43.909] 10/21/2015 Osteoarthrosis [M19.90] 02/02/2016 Other seborrheic keratosis [L82.1] 10/21/2015 Prediabetes [R73.03] 12/30/2020 Vitamin D deficiency [E55.9] 10/21/2015 Stage 3a chronic kidney disease (HCC) [N18.31] 02/21/2022 ABRAMS (dyspnea on exertion) [R06.09] 04/13/2022 07/03/2022 Arthralgia of shoulder region, left [M25.512] 04/13/2022 Preoperative cardiovascular examination [Z01.81*04/13/2022 Encounter Status:Closed by CARRINGTON PICKETT on 07/04/24 [facility] 04-07-2024 Note HNO ID: [id number] Author: MIMI IVY APRN.NIGHT CLEANER Service: ? Author Type: Nurse Practitioner Type: Progress Notes Filed: 04/07/2024 11:04 Note Text: VIRTUAL VISIT PROGRESS NOTE This is a virtual visit using Audio Only Visit. It required patient-provider interaction for the medical decision making as documented below. I have communicated my name and active licensure. The patient's identity and physical location were verified at the time of this visit. Either the patient or their legal personal financial representative has been informed of the risks and benefits of -- and alternatives to -- treatment through a remote evaluation and consents to proceed with the evaluation remotely. Neville Patel is a 68 year old female seen for c/o headache, cough productive for green sputum, rib pain from coughing. Had fever yesterday of 99.5. Has c/o body aches. Denies nasal drainage. Symptoms started on Sunday. Denies N/V. No SOB, wheezing. was diagnosed with influenza A last week and has similar symptoms. HISTORY REVIEWED (electronic chart updated): PAST MEDICAL HISTORY Diagnosis Date Arthritis Depression Fibromyalgia 10/21/2015 Hard of hearing bilateral hearing aides Hypertension bp controlled with medication- PCP follows Hypothyroidism PCP follows Idiopathic scoliosis Lumbar spinal stenosis 10/27/2015 Migraine, unspecified, without mention of intractable migraine without mention of status migrainosus Neuropathy 06/05/2016 Right Ulnar Neuropathy Obstructive sleep apnea 10/21/2015 cpap nightly Osteoarthritis of multiple joints 02/02/2016 Personal history of fall PTSD (post-traumatic stress disorder) Status post right shoulder hemiarthroplasty 02/02/2017 Total, mature senile cataract Wears glasses PAST SURGICAL HISTORY Procedure Laterality Date ANKLE SURGERY HX Left x2 APPENDECTOMY HX CHOLECYSTECTOMY HX CYSTOSCOPY Right DANDC, DIAG AND/OR THERAPEUTIC EXTENSIVE JAW SURGERY 1989 X2 UPPER AND LOWER-maxillary and mandibular ostomies EYE SURGERY HX RETINAL DETACHMENT HYSTERECTOMY HX JOINT REPLACEMENT HX Right RIGHT SHOULDER PAST SURGICAL HISTORY OF 2014 mandibular ostomy PAST SURGICAL HISTORY OF Right 2018 scleral buckel POST-CATARACT LASER SURGERY Bilateral REMOVAL OF KIDNEY STONE LITHOTRIPSY SHOULDER SURGERY HX Bilateral arthroscopy TONSILLECTOMY HX FAMILY HISTORY Problem Relation Age of Onset Coronary Artery Disease Mother Coronary Artery Disease Father Cancer Maternal Grandmother Cancer Maternal Grandfather Kidney Disease No Family History Hypertension No Family History Stroke No Family History Arthritis No Family History Depression No Family History Anxiety disorder No Family History Social History Tobacco Use Smoking status: Former Current packs/day: 0.00 Average packs/day: 1 pack/day for 20.0 years (20.0 ttl pk-yrs) Types: Cigarettes Start date: 02/18/1979 Quit date: 02/18/1999 Years since quittin.1 Passive exposure: Past Vaping Use Vaping status: Never Used Substance Use Topics Alcohol use: Yes Comment: OCCASSIONALLY Drug use: Never Current Outpatient Medications Medication Sig ubidecarenone (COENZYME Q10) 100 mg tab Take 1 Each by mouth once daily. cyclobenzaprine (FLEXERIL) 10 mg tablet Take 1 tablet by mouth three times a day as needed. venlafaxine ER (EFFEXOR XR) 75 mg 24 hr capsule Take 3 capsules by mouth once daily. metoprolol succinate ER (TOPROL XL) 25 mg 24 hr tablet TAKE 1 TABLET BY MOUTH ONCE DAILY liothyronine (CYTOMEL) 5 mcg tablet TAKE 3 TABLETS BY MOUTH DAILY IN THE MORNING buPROPion (WELLBUTRIN) 100 mg tablet TAKE 1 TABLET BY MOUTH TWICE DAILY VITAMIN D2 1,250 mcg (50,000 unit) capsule TAKE 1 CAPSULE BY MOUTH EVERY 2 WEEKS. Bacillus coagulans-Inulin (PROBIOTIC WITH PREBIOTIC) 1 billion-250 cell-mg cap Take 1 tablet by mouth daily at bedtime. diclofenac sodium 1 % kit Apply to affected area as needed. FOR ARTHRITIS No current facility-administered medications for this visit. ALLERGIES Allergen Reactions Adhesive Tape-Silic* Rash Rash Aspirin Other: See Comments Upset stomach, has to take enteric aspirin. Colesevelam GI Upset Ezetimibe Other: See Comments Fenofibrate Nanocry* GI Upset Morphine Other: See Comments Flushing Nsaids (Non-Steroid* GI Upset Wallavh-Lvf-Rok Red* GI Upset, Myalgia Sulfa (Sulfonamide * Vomiting REVIEW OF SYSTEMS: GENERAL: admits to fatigue, fever up to 99.5 HEENT: nasal congestion, headaches RESPIRATORY: cough as above without SOB/chest pains PHYSICAL EXAMINATION: VIDEO EXAM: (if completed, performed via video enabled technology) No exam performed, occasional cough heard. ASSESSMENT: Morbid Obesity Class 3 PLAN: ASSESSMENT/PLAN: 1. Influenza - ICD9: 487.1, ICD10: J11.1 Push fluids, rest. Outside of recommended range for Tamiflu Tessalon perles 200 mg every 8 hours as needed for cough - BENZONATATE 2 (more content not included)... [facility] 04-07-2024 History of Presen t illness Narrative VIRTUAL VISIT PROGRESS NOTE This is a virtual visit using Audio Only Visit. It required patient-provider interaction for the medical decision making as documented below. I have communicated my name and active licensure. The patient's identity and physical location were verified at the time of this visit. Either the patient or their legal personal financial representative has been informed of the risks and benefits of -- and alternatives to -- treatment through a remote evaluation and consents to proceed with the evaluation remotely. Neville Patel is a 68 year old female seen for c/o headache, cough productive for green sputum, rib pain from coughing. Had fever yesterday of 99.5. Has c/o body aches. Denies nasal drainage. Symptoms started on Sunday. Denies N/V. No SOB, wheezing. was diagnosed with influenza A last week and has similar symptoms. HISTORY REVIEWED (electronic chart updated): PAST MEDICAL HISTORY Diagnosis Date Arthritis Depression Fibromyalgia 10/21/2015 Hard of hearing bilateral hearing aides Hypertension bp controlled with medication- PCP follows Hypothyroidism PCP follows Idiopathic scoliosis Lumbar spinal stenosis 10/27/2015 Migraine, unspecified, without mention of intractable migraine without mention of status migrainosus Neuropathy 06/05/2016 Right Ulnar Neuropathy Obstructive sleep apnea 10/21/2015 cpap nightly Osteoarthritis of multiple joints 02/02/2016 Personal history of fall PTSD (post-traumatic stress disorder) Status post right shoulder hemiarthroplasty 02/02/2017 Total, mature senile cataract Wears glasses PAST SURGICAL HISTORY Procedure Laterality Date ANKLE SURGERY HX Left x2 APPENDECTOMY HX CHOLECYSTECTOMY HX CYSTOSCOPY Right D&C, DIAG AND/OR THERAPEUTIC EXTENSIVE JAW SURGERY 1989 X2 UPPER AND LOWER-maxillary and mandibular ostomies EYE SURGERY HX RETINAL DETACHMENT HYSTERECTOMY HX JOINT REPLACEMENT HX Right RIGHT SHOULDER PAST SURGICAL HISTORY OF 2014 mandibular ostomy PAST SURGICAL HISTORY OF Right 2018 scleral buckel POST-CATARACT LASER SURGERY Bilateral REMOVAL OF KIDNEY STONE LITHOTRIPSY SHOULDER SURGERY HX Bilateral arthroscopy TONSILLECTOMY HX FAMILY HISTORY Problem Relation Age of Onset Coronary Artery Disease Mother Coronary Artery Disease Father Cancer Maternal Grandmother Cancer Maternal Grandfather Kidney Disease No Family History Hypertension No Family History Stroke No Family History Arthritis No Family History Depression No Family History Anxiety disorder No Family History Social History Tobacco Use Smoking status: Former Current packs/day: 0.00 Average packs/day: 1 pack/day for 20.0 years (20.0 ttl pk-yrs) Types: Cigarettes Start date: 02/18/1979 Quit date: 02/18/1999 Years since quittin.1 Passive exposure: Past Vaping Use Vaping status: Never Used Substance Use Topics Alcohol use: Yes Comment: OCCASSIONALLY Drug use: Never Current Outpatient Medications Medication Sig ubidecarenone (COENZYME Q10) 100 mg tab Take 1 Each by mouth once daily. cyclobenzaprine (FLEXERIL) 10 mg tablet Take 1 tablet by mouth three times a day as needed. venlafaxine ER (EFFEXOR XR) 75 mg 24 hr capsule Take 3 capsules by mouth once daily. metoprolol succinate ER (TOPROL XL) 25 mg 24 hr tablet TAKE 1 TABLET BY MOUTH ONCE DAILY liothyronine (CYTOMEL) 5 mcg tablet TAKE 3 TABLETS BY MOUTH DAILY IN THE MORNING buPROPion (WELLBUTRIN) 100 mg tablet TAKE 1 TABLET BY MOUTH TWICE DAILY VITAMIN D2 1,250 mcg (50,000 unit) capsule TAKE 1 CAPSULE BY MOUTH EVERY 2 WEEKS. Bacillus coagulans-Inulin (PROBIOTIC WITH PREBIOTIC) 1 billion-250 cell-mg cap Take 1 tablet by mouth daily at bedtime. diclofenac sodium 1 % kit Apply to affected area as needed. FOR ARTHRITIS No current facility-administered medications for this visit. ALLERGIES Allergen Reactions Adhesive Tape-Silic* Rash Rash Aspirin Other: See Comments Upset stomach, has to take enteric aspirin. Colesevelam GI Upset Ezetimibe Other: See Comments Fenofibrate Nanocry* GI Upset Morphine Other: See Comments Flushing Nsaids (Non-Steroid* GI Upset Mnlijqe-Mqa-Svb Red* GI Upset, Myalgia Sulfa (Sulfonamide * Vomiting REVIEW OF SYSTEMS: GENERAL: admits to fatigue, fever up to 99.5 HEENT: nasal congestion, headaches RESPIRATORY: cough as above without SOB/chest pains PHYSICAL EXAMINATION: VIDEO EXAM: (if completed, performed via video enabled technology) No exam performed, occasional cough heard. ASSESSMENT: Morbid Obesity Class 3 PLAN: ASSESSMENT/PLAN: 1. Influenza - ICD9: 487.1, ICD10: J11.1 Push fluids, rest. Outside of recommended range for Tamiflu Tessalon perles 200 mg every 8 hours as needed for cough - BENZONATATE 200 MG CAPSULE Mimi Ivy APRN.NIGHT CLEANER There are no Patient Instructions on file for this visit. I spent a total of 12 minutes on the date of the service which included preparing to see the patient, completing clinical documentation, counseling and educating the patient/family/caregiver, and ordering medications, tests, or procedures Mimi Ivy APRN.[place] documented in this encounter [facility] 01-24-2024 Telephone encounter Note ASSESSMENT/PLAN: 1. Anxiety with depression - ICD9: 300.4, ICD10: F41.8 - VENLAFAXINE ER 75 MG CAPSULE,EXTENDED RELEASE 24 HR Nayana Hoang MD This patient gave consent to this Medical Advice Message and is aware that it may result in a bill to their insurance, as well as the possibility of receiving a bill for a copay and/or deductible. They are an established patient, but are not seeking information exclusively about a problem treated during an in person or video visit in the last seven days. I did not recommend an in person or video visit within seven days of my reply. See the [employer] message reply for my assessment and plan. I spent a total of 5 minutes reviewing the patient's prior medical records and current request for medical advice, prescribing medications or ordering tests (if applicable), replying to the patient, and documenting the encounter. [facility] 01-24-2024 Miscellaneous Notes ASSESSMENT/PLAN: 1. Anxiety with depression - ICD9: 300.4, ICD10: F41.8 - VENLAFAXINE ER 75 MG CAPSULE,EXTENDED RELEASE 24 HR Nayana Hoang MD This patient gave consent to this Medical Advice Message and is aware that it may result in a bill to their insurance, as well as the possibility of receiving a bill for a copay and/or deductible. They are an established patient, but are not seeking information exclusively about a problem treated during an in person or video visit in the last seven days. I did not recommend an in person or video visit within seven days of my reply. See the [employer] message reply for my assessment and plan. I spent a total of 5 minutes reviewing the patient's prior medical records and current request for medical advice, prescribing medications or ordering tests (if applicable), replying to the patient, and documenting the encounter. documented in this encounter [facility] 01-21-2024 Note HNO ID: [id number] Author: ?, ?, ? Service: ? Author Type: ? Type: Progress Notes Filed: 01/21/2024 09:08 Note Text: Chart reviewed Annual Visit scheduled?: No Outreach needed: No Sammie Rod January 21, 2024 9:08 AM [facility] 01-21-2024 History of Presen t illness Narrative Chart reviewed Annual Visit scheduled?: No Outreach needed: No Sammie Rod January 21, 2024 9:08 AM documented in this encounter [facility] 01-21-2024 Note Patient Outreach (MR CAC) NEVILLE PATEL ([id number]) 1955 F Date Time Provider Department 01/21/24 SAMMIE ROD During your visit today, we recorded the following information about you: Sammie Rod 01/21/2024 9:08 AM Signed Chart reviewed Annual Visit scheduled?: No Outreach needed: No Sammie Rod January 21, 2024 9:08 AM Allergies As of Date: 01/21/2024 Noted Allergy Reaction ADHESIVE TAPE-SILICONES 09/19/2021 2 - Rash Comments: Rash ASPIRIN 09/19/2021 14 - Other: See Comments Comments: Upset stomach, has to take enteric aspirin. COLESEVELAM 10/21/2015 8 - GI Upset EZETIMIBE 10/21/2015 14 - Other: See Comments FENOFIBRATE NANOCRYSTALLIZED 10/21/2015 8 - GI Upset MORPHINE 09/19/2021 14 - Other: See Comments Comments: Flushing NSAIDS (NON-STEROIDAL ANTI-INFLAM*12/13/2015 8 - GI Upset [id number] REDUCTASE INHIBIT*04/03/2022 8 - GI Upset 17 - Myalgia SULFA (SULFONAMIDE ANTIBIOTICS) 12/13/2015 11 - Vomiting Date Reviewed: 05/15/2023 Reviewed by: Aneudy Yeh, Nayana Sales MD - Fully Assessed Reason for Visit: Advocacy [910] Cmt: Wellness was rescheduled to 2-15-24 Prescriptions as of 01/21/2024 - cyclobenzaprine (FLEXERIL) 10 mg tablet TAKE 1 TABLET BY MOUTH 3 TIMES DAILY NEEDED - metoprolol succinate ER (TOPROL XL) 25 mg 24 hr tablet TAKE 1 TABLET BY MOUTH ONCE DAILY - liothyronine (CYTOMEL) 5 mcg tablet TAKE 3 TABLETS BY MOUTH DAILY IN THE MORNING - buPROPion (WELLBUTRIN) 100 mg tablet TAKE 1 TABLET BY MOUTH TWICE DAILY - VITAMIN D2 1,250 mcg (50,000 unit) capsule TAKE 1 CAPSULE BY MOUTH EVERY 2 WEEKS. - venlafaxine ER (EFFEXOR XR) 75 mg 24 hr capsule TAKE 3 CAPSULES BY MOUTH ONCE DAILY - Bacillus coagulans-Inulin (PROBIOTIC WITH PREBIOTIC) 1 billion-250 cell-mg cap Take 1 tablet by mouth daily at bedtime. - diclofenac sodium 1 % kit Apply to affected area as needed. FOR ARTHRITIS - aspirin, enteric coated (ASPIRIN, ENTERIC COATED) 81 mg EC tablet Take 81 mg by mouth once daily. WILL VERIFY WITH HER PCP WHEN TO STOP- will look at instructions that are at home Problem List As Of Date 01/21/2024 Noted Resolved Radiculopathy, lumbar region [M54.16] 12/13/2015 Morbid obesity with BMI of 40.0-44.9, adult (HC*02/16/2022 Personal history of urinary calculi [Z87.442] 12/14/2021 Obstructive sleep apnea (adult) (pediatric) [G4*09/19/2021 Acne rosacea [L71.9] 02/28/2018 08/14/2022 Acquired hypothyroidism [E03.9] 10/21/2015 Chronic allergic conjunctivitis [H10.45] 10/21/2015 Esophageal reflux [K21.9] 10/21/2015 08/14/2022 Chronic low back pain [M54.50, G89.29] 01/07/2019 Hypertension, essential [I10] 10/27/2015 History of shoulder surgery [Z98.890] 02/02/2017 Combined hyperlipidemia [E78.2] 10/21/2015 Impaired fasting glucose [R73.01] 12/15/2020 Idiopathic scoliosis [M41.20] 02/02/2016 Major depressive disorder, recurrent severe wit*10/21/2015 Migraine headache [G43.909] 10/21/2015 Osteoarthrosis [M19.90] 02/02/2016 Other seborrheic keratosis [L82.1] 10/21/2015 Prediabetes [R73.03] 12/30/2020 Vitamin D deficiency [E55.9] 10/21/2015 Stage 3a chronic kidney disease (HCC) [N18.31] 02/21/2022 ABRAMS (dyspnea on exertion) [R06.09] 04/13/2022 07/03/2022 Arthralgia of shoulder region, left [M25.512] 04/13/2022 Preoperative cardiovascular examination [Z01.81*04/13/2022 Encounter Status:Closed by SAMMIE ROD on 01/21/24 [facility] 12-05-2023 Note HNO ID: [id number] Author: ?, ?, ? Service: ? Author Type: ? Type: Progress Notes Filed: 12/05/2023 10:49 Note Text: Chart reviewed Annual Visit scheduled?: Yes Outreach needed: No Sammie Rod December 05, 2023 10:49 AM [facility] 12-05-2023 History of Presen t illness Narrative Chart reviewed Annual Visit scheduled?: Yes Outreach needed: No Sammie Rod December 05, 2023 10:49 AM documented in this encounter [facility] 12-05-2023 Note Patient Outreach ( CAC) NEVILLE PATEL ([id number]) 1955 F Date Time Provider Department 12/05/23 SAMMIE ROD [facility] During your visit today, we recorded the following information about you: Sammie Rod 12/05/2023 10:49 AM Signed Chart reviewed Annual Visit scheduled?: Yes Outreach needed: No Sammie Rod December 05, 2023 10:49 AM Allergies As of Date: 12/05/2023 Noted Allergy Reaction ADHESIVE TAPE-SILICONES 09/19/2021 2 - Rash Comments: Rash ASPIRIN 09/19/2021 14 - Other: See Comments Comments: Upset stomach, has to take enteric aspirin. COLESEVELAM 10/21/2015 8 - GI Upset EZETIMIBE 10/21/2015 14 - Other: See Comments FENOFIBRATE NANOCRYSTALLIZED 10/21/2015 8 - GI Upset MORPHINE 09/19/2021 14 - Other: See Comments Comments: Flushing NSAIDS (NON-STEROIDAL ANTI-INFLAM*12/13/2015 8 - GI Upset [id number] REDUCTASE INHIBIT*04/03/2022 8 - GI Upset 17 - Myalgia SULFA (SULFONAMIDE ANTIBIOTICS) 12/13/2015 11 - Vomiting Date Reviewed: 05/15/2023 Reviewed by: Aneudy Yeh, Nayana Sales MD - Fully Assessed Reason for Visit: Appointment [186] Cmt: Verified wellness is scheduled Prescriptions as of 12/05/2023 - metoprolol succinate ER (TOPROL XL) 25 mg 24 hr tablet TAKE 1 TABLET BY MOUTH ONCE DAILY - liothyronine (CYTOMEL) 5 mcg tablet TAKE 3 TABLETS BY MOUTH DAILY IN THE MORNING - buPROPion (WELLBUTRIN) 100 mg tablet TAKE 1 TABLET BY MOUTH TWICE DAILY - VITAMIN D2 1,250 mcg (50,000 unit) capsule TAKE 1 CAPSULE BY MOUTH EVERY 2 WEEKS. - cyclobenzaprine (FLEXERIL) 10 mg tablet Take 1 tablet by mouth three times a day as needed. - venlafaxine ER (EFFEXOR XR) 75 mg 24 hr capsule TAKE 3 CAPSULES BY MOUTH ONCE DAILY - Bacillus coagulans-Inulin (PROBIOTIC WITH PREBIOTIC) 1 billion-250 cell-mg cap Take 1 tablet by mouth daily at bedtime. - diclofenac sodium 1 % kit Apply to affected area as needed. FOR ARTHRITIS - aspirin, enteric coated (ASPIRIN, ENTERIC COATED) 81 mg EC tablet Take 81 mg by mouth once daily. WILL VERIFY WITH HER PCP WHEN TO STOP- will look at instructions that are at home Problem List As Of Date 12/05/2023 Noted Resolved Radiculopathy, lumbar region [M54.16] 12/13/2015 Morbid obesity with BMI of 40.0-44.9, adult (HC*02/16/2022 Personal history of urinary calculi [Z87.442] 12/14/2021 Obstructive sleep apnea (adult) (pediatric) [G4*09/19/2021 Acne rosacea [L71.9] 02/28/2018 08/14/2022 Acquired hypothyroidism [E03.9] 10/21/2015 Chronic allergic conjunctivitis [H10.45] 10/21/2015 Esophageal reflux [K21.9] 10/21/2015 08/14/2022 Chronic low back pain [M54.50, G89.29] 01/07/2019 Hypertension, essential [I10] 10/27/2015 History of shoulder surgery [Z98.890] 02/02/2017 Combined hyperlipidemia [E78.2] 10/21/2015 Impaired fasting glucose [R73.01] 12/15/2020 Idiopathic scoliosis [M41.20] 02/02/2016 Major depressive disorder, recurrent severe wit*10/21/2015 Migraine headache [G43.909] 10/21/2015 Osteoarthrosis [M19.90] 02/02/2016 Other seborrheic keratosis [L82.1] 10/21/2015 Prediabetes [R73.03] 12/30/2020 Vitamin D deficiency [E55.9] 10/21/2015 Stage 3a chronic kidney disease (HCC) [N18.31] 02/21/2022 ABRAMS (dyspnea on exertion) [R06.09] 04/13/2022 07/03/2022 Arthralgia of shoulder region, left [M25.512] 04/13/2022 Preoperative cardiovascular examination [Z01.81*04/13/2022 Encounter Status:Closed by SAMMIE ROD on 12/05/23 [facility] 07-18-2023 Telephone encounter Note Pharmacy faxed requesting the following refill. Requested Prescriptions Pending Prescriptions Disp Refills VITAMIN D2 1,250 mcg (50,000 unit) capsule [Pharmacy Med Name: Vitamin D (Ergocalciferol) 1.25 MG (63343 UT) Oral Capsule] 8 capsule 2 Sig: TAKE 1 CAPSULE BY MOUTH EVERY 2 WEEKS. Patient last appointment: 06/21/2023 Patient Phone numbers: [phone] (home) Request is for script(s) to be escript to pharmacy. Noemí Pennington MA [facility] 07-18-2023 Miscellaneous Notes Pharmacy faxed requesting the following refill. Requested Prescriptions Pending Prescriptions Disp Refills VITAMIN D2 1,250 mcg (50,000 unit) capsule [Pharmacy Med Name: Vitamin D (Ergocalciferol) 1.25 MG (56064 UT) Oral Capsule] 8 capsule 2 Sig: TAKE 1 CAPSULE BY MOUTH EVERY 2 WEEKS. Patient last appointment: 06/21/2023 Patient Phone numbers: [phone] (home) Request is for script(s) to be escript to pharmacy. Noemí Pennington MA documented in this encounter [facility] 06-04-2023 Miscellaneous Notes ASSESSMENT/PLAN: 1. Major depressive disorder, recurrent severe without psychotic features (HCC) - ICD9: 296.33, ICD10: F33.2 - BUPROPION HCL 100 MG TABLET Nayana Hoang MD This patient gave consent to this Medical Advice Message and is aware that it may result in a bill to their insurance, as well as the possibility of receiving a bill for a copay and/or deductible. They are an established patient, but are not seeking information exclusively about a problem treated during an in person or video visit in the last seven days. I did not recommend an in person or video visit within seven days of my reply. See the [employer] message reply for my assessment and plan. I spent a total of 5 minutes reviewing the patient's prior medical records and current request for medical advice, prescribing medications or ordering tests (if applicable), replying to the patient, and documenting the encounter. documented in this encounter [facility] 05-15-2023 Miscellaneous Notes Addended by: NAYANA HOANG on: 05/15/2023 11:22 AM Modules accepted: Orders documented in this encounter [facility] 05-15-2023 History of Presen t illness Narrative This note was created using [employer]. Subjective Neville Patel is a 67 year old female. HPIFollow Up (Go over lab results and needs paper work filled out for her disability. Metoprolol needs to be changed to taking one tablet daily,no longer taking half pill daily. Anxiety with depression stable on current medication good compliance . Mood is stable, sleeping and eating well. No suicidal ideation. Hypothyroidism on Cytomel taking daily in the morning. No weight change. No heat or cold intolerance. Stable to continue TSH Date Value Ref Range Status 05/12/2023 0.820 0.358 - 3.740 mIU/L Final Comment: 3rd generation ultra sensitive TSH. Hyperlipidemia The 10-year ASCVD risk score (Melanie RODRIGUEZ, et al., 2019) is: 9.6% Values used to calculate the score: Age: 67 years Sex: Female Is Non- : No Diabetic: No Tobacco smoker: No Systolic Blood Pressure: 138 mmHg Is BP treated: Yes HDL Cholesterol: 57 mg/dL Total Cholesterol: 255 mg/dL Has disability paper work filled. PAST MEDICAL HISTORY Diagnosis Date Arthritis Depression Fibromyalgia 10/21/2015 Hard of hearing bilateral hearing aides Hypertension bp controlled with medication- PCP follows Hypothyroidism PCP follows Idiopathic scoliosis Lumbar spinal stenosis 10/27/2015 Migraine, unspecified, without mention of intractable migraine without mention of status migrainosus Neuropathy 06/05/2016 Right Ulnar Neuropathy Obstructive sleep apnea 10/21/2015 cpap nightly Osteoarthritis of multiple joints 02/02/2016 Personal history of fall PTSD (post-traumatic stress disorder) Status post right shoulder hemiarthroplasty 02/02/2017 Total, mature senile cataract Wears glasses PAST SURGICAL HISTORY Procedure Laterality Date ANKLE SURGERY HX Left x2 APPENDECTOMY HX CHOLECYSTECTOMY HX CYSTOSCOPY Right D&C, DIAG AND/OR THERAPEUTIC EXTENSIVE JAW SURGERY 1989 X2 UPPER AND LOWER-maxillary and mandibular ostomies EYE SURGERY HX RETINAL DETACHMENT HYSTERECTOMY HX JOINT REPLACEMENT HX Right RIGHT SHOULDER PAST SURGICAL HISTORY OF 2014 mandibular ostomy PAST SURGICAL HISTORY OF Right 2018 scleral buckel POST-CATARACT LASER SURGERY Bilateral REMOVAL OF KIDNEY STONE LITHOTRIPSY SHOULDER SURGERY HX Bilateral arthroscopy TONSILLECTOMY HX Social History Tobacco Use Smoking status: Former Packs/day: 1.00 Years: 20.00 Additional pack years: 0.00 Total pack years: 20.00 Types: Cigarettes Quit date: 02/18/1999 Years since quittin.2 Passive exposure: Past Vaping Use Vaping Use: Never used Substance Use Topics Alcohol use: Yes Comment: OCCASSIONALLY Drug use: Never All medications have been reviewed and verified. Review of Systems Constitutional: Negative for fever. HENT: Negative for congestion, dental problem, drooling and ear discharge. Eyes: Negative for pain, discharge and itching. Respiratory: Negative for cough, chest tightness, shortness of breath and wheezing. Cardiovascular: Negative for chest pain, palpitations and leg swelling. Gastrointestinal: Negative for abdominal pain, blood in stool and constipation. Endocrine: Negative for cold intolerance, heat intolerance, polydipsia, polyphagia and polyuria. Genitourinary: Negative for difficulty urinating, dysuria, enuresis and flank pain. Musculoskeletal: Positive for arthralgias and back pain. Skin: Negative for color change and pallor. Allergic/Immunologic: Negative for environmental allergies, food allergies and immunocompromised state. Neurological: Positive for dizziness and headaches. Negative for facial asymmetry and light-headedness. Hematological: Negative for adenopathy. Does not bruise/bleed easily. Objective BP 138/86 (BP Site: Right Arm, BP Position: Sitting, BP Cuff Size: Large Adult) Pulse 88 Temp 36.8 C (98.3 F) (Oral) Resp 16 Ht 152.4 cm (5') Wt 109.4 kg (241 lb 3.2 oz) SpO2 95% BMI 47.11 kg/m Physical Exam Vitals and nursing note reviewed. Constitutional: General: She is not in acute distress. Appearance: Normal appearance. She is obese. She is not ill-appearing. HENT: Head: Normocephalic and atraumatic. Nose: Nose normal. No congestion or rhinorrhea. Eyes: Pupils: Pupils are equal, round, and reactive to light. Cardiovascular: Rate and Rhythm: Normal rate and regular rhythm. Pulses: Normal pulses. Heart sounds: Normal heart sounds. No murmur heard. Pulmonary: Effort: Pulmonary effort is normal. No respiratory distress. Breath sounds: Normal breath sounds. No wheezing, rhonchi or rales. Abdominal: General: Bowel sounds are normal. Palpations: Abdomen is soft. There is no mass. Tenderness: There is no abdominal tenderness. Hernia: No hernia is present. Musculoskeletal: General: Normal range of motion. Cervical back: Normal range of motion and neck supple. Lymphadenopathy: Cervical: No cervical adenopathy. Skin: Findings: No bruising, lesion or rash. Neurological: General: No focal deficit present. Mental Status: She is alert and oriented to person, place, and time. Mental status is at baseline. Cranial Nerves: No cranial nerve deficit. Motor: No weakness. Gait: Gait normal. Psychiatric: Mood and Affect: Mood normal. Behavior: Behavior normal. I spent a total of 40 minutes on the date of the service which included preparing to see the patient, [id number] patient care, completing clinical documentation, performing a medically appropriate examination, counseling and educating the patient/family/caregiver, and ordering medications, tests, or procedures Assessment and Plan ASSESSMENT/PLAN: 1. Combined hyperlipidemia - ICD9: 272.2, ICD10: E78.2 (primary diagnosis) - Controlled - Continue current medications - Counseled on healthy diet and regular exercise 2. Major depressive disorder, recurrent severe without psychotic features (HCC) - ICD9: 296.33, ICD10: F33.2 3. Morbid obesity with BMI of 40.0-44.9, adult (HCC) - ICD9: 278.01, V85.41, ICD10: E66.01, Z68.41 Stable - Behavioral intervention 4. Stage 3a chronic kidney disease (HCC) - ICD9: 585.3, ICD10: N18.31 - eGFR: 64 Stable - Counseled on avoiding NSAIDs, adequate hydration - Counseled on low sodium diet 5. Hypertension, essential - ICD9: 401.9, ICD10: I10 - Controlled - Continue current medications - Recommend home blood pressure monitoring, to bring results to next visit - Encouraged sodium restriction, DASH or Mediterranean diet - Recommend regular aerobic exercise 6. Acquired hypothyroidism - ICD9: 244.9, ICD10: E03.9 - Instructed patient on importance of taking on an empty stomach either first thing in the morning or at bedtime. Nayana Hoang MD documented in this encounter [facility] 04-25-2023 Miscellaneous Notes April 25, 2023 PID: [id number] Neville [place] [address] [address] [place] [address] Dear Ms. Patel, We are pleased to inform you that the results of your recent breast imaging exam on 04/25/2023 are normal. Early detection of cancer is very important. We also understand recommendations regarding breast cancer screening are controversial. Please discuss with your primary care provider which strategy is best for you and whether a mammogram is right for you. Your imaging studies and report will be kept on file at [facility] as part of your permanent medical record and are available for your continuing care. Thank you for allowing us to help in meeting your health care needs. Sincerely, Dr. De La Cruz Interpreting Radiologist [facility] [place] (Normal over 40) documented in this encounter [facility] 03-30-2023 Miscellaneous Notes Patient called requesting the following refill. Requested Prescriptions Pending Prescriptions Disp Refills cyclobenzaprine (FLEXERIL) 10 mg tablet 90 tablet 2 Sig: Take 1 tablet by mouth three times a day as needed. Patient last appointment: 02/07/2023 Patient Phone numbers: [phone] (home) Request is for script(s) to be escript to pharmacy. Noemí Pennington MA documented in this encounter [facility] 07-27-2022 Miscellaneous Notes Left detailed message for Neville to call office and make an appointment with Dr Hoang and advised her if her tachycardia becomes worse for her until shecan get in for an appointment she needs to go to the er to be seen. Advise to go to ED or stat care if having severe symptoms To book next available appointment. Called stating she has been feeling tachycardia and has called her professor of theology yesterday and talked with the nurse and has not heard back from them. Is there any concern for her and or is there any thing you need to do for her. documented in this encounter [facility] 07-26-2022 Miscellaneous Notes Called to check with pt how she is feeling. She states that her heart rate has continued to be in the 80's ( normally is a lot lower) and is still dizzy when she stands up or moves her head a certain way. Since this started she has not been doing much and just sitting around. Denies dyspnea, palpitations or sinus pressure. She does admit to a dull headache. Also she tells me that she took the pravastatin with Co Q10 for about 10 days and it upset her stomach so she stopped taking the pravastatin but has continued the CoQ10. Advised she could stop the CoQ10 but pt wants to make sure Dr Miller wants her to do that before she does.Advised will check with Dr Miller and get back to her. Pt agreeable. Pt is calling back about this situation she is concerned and not sure what to do Pt is calling states she is in tachycardia and this has never happened before. PT was in PT on Sunday she felt like she was going to pass out she was very dizzy this hasn't happened to her before. Throughout the day she continued feeling dizzy like she was going to pass out this continues through sat 101 was when she checked her vitals. She's continued to monitor and HR was in 80s which she is normally 60s.... did orthostatics laying down it was 113/79 HR 75 sitting 109/90 HR 117, standing 135/88 HR 89 this morning HR was down to 68. No chest pain,no SOB just continuing to get dizzy. documented in this encounter [facility] 07-03-2022 History of Presen t illness Narrative Patient complains of cough, sore throat , nasal congestion for several days. Sinus congestion Symptoms are worsening No fever No sob Depression stable on wellbutrin and effexor. Hyperlipidemia but not taking paravastatin due to stomach side effects. NKDA PAST MEDICAL HISTORY Diagnosis Date Arthritis Depression Fibromyalgia 10/21/2015 Hard of hearing bilateral hearing aides Hypertension bp controlled with medication- PCP follows Hypothyroidism PCP follows Idiopathic scoliosis Lumbar spinal stenosis 10/27/2015 Migraine, unspecified, without mention of intractable migraine without mention of status migrainosus Neuropathy 06/05/2016 Right Ulnar Neuropathy Obstructive sleep apnea 10/21/2015 cpap nightly Osteoarthritis of multiple joints 02/02/2016 Personal history of fall PTSD (post-traumatic stress disorder) Status post right shoulder hemiarthroplasty 02/02/2017 Total, mature senile cataract Wears glasses PAST SURGICAL HISTORY Procedure Laterality Date ANKLE SURGERY HX Left x2 APPENDECTOMY HX CHOLECYSTECTOMY HX CYSTOSCOPY Right D&C, DIAG AND/OR THERAPEUTIC EXTENSIVE JAW SURGERY 1989 X2 UPPER AND LOWER-maxillary and mandibular ostomies EYE SURGERY HX RETINAL DETACHMENT HYSTERECTOMY HX JOINT REPLACEMENT HX Right RIGHT SHOULDER PAST SURGICAL HISTORY OF 2013 mandibular ostomy PAST SURGICAL HISTORY OF Right 2018 scleral buckel POST-CATARACT LASER SURGERY Bilateral REMOVAL OF KIDNEY STONE LITHOTRIPSY SHOULDER SURGERY HX Bilateral arthroscopy TONSILLECTOMY HX Smoking no REVIEW OF SYSTEMS GENERAL: No weight loss, malaise or fevers HEENT: Negative for frequent or significant headaches, No changes in hearing or vision, no nose bleeds . Nose Positive for sneezing and congestion NECK: Negative for lumps, goiter, pain and significant neck swelling RESPIRATORY: Cough; moist CARDIOVASCULAR: Negative for chest pain, leg swelling, hypertension, CHF or palpitations BP: 122/78 Temp: 36.2 C (97.1 F) Temp src: Temporal Pulse: 82 Resp: 18 SpO2: 97 % General appearance : no distress , able to talk sentences Nose congestion, erythema Throat mild erythema , no exudate CHEST equal air entry , no wheeze or crackles CVS normal S1,2+0 Neck no masses Ear mild erythema ASSESSMENT/PLAN: 1. Acquired hypothyroidism - ICD9: 244.9, ICD10: E03.9 (primary diagnosis) - Instructed patient on importance of taking on an empty stomach either first thing in the morning or at bedtime. Stable - Behavioral intervention - TSH BLD 2. Major depressive disorder, recurrent severe without psychotic features (HCC) - ICD9: 296.33, ICD10: F33.2 Continue current management plan. 3. Stage 3a chronic kidney disease (HCC) - ICD9: 585.3, ICD10: N18.31 - eGFR: Stable - Counseled on avoiding regular use of NSAIDs, adequate hydration, potential risk of IV dye - Recommend maintaining A1c < 7% - Recommend maintaining blood pressure under 130/80 - CBC - COMP METABOLIC PANEL 4. Hyperlipidemia, unspecified hyperlipidemia type - ICD9: 272.4, ICD10: E78.5 - good control - Continue current medication. - Check fasting lipid panel and ALT. - CBC - COMP METABOLIC PANEL - LIPID PANEL BASIC 5. Prediabetes - ICD9: 790.29, ICD10: R73.03 - HGB A1C 6. Vitamin D deficiency - ICD9: 268.9, ICD10: E55.9 - VITAMIN D 25 HYDROXY 7. URI, acute - ICD9: 465.9, ICD10: J06.9 - Discussed viral etiology and rationale for treatment. - Symptomatic treatment with prn analgesia - Supportive care with fluids and rest - AMOXICILLIN 500 MG TABLET aNyana Hoang MD documented in this encounter [facility] 05-26-2022 History of Presen t illness Narrative Neville Patel is a 66 year old female here for a Medicare Subsequent Annual Wellness Visit Health Risk Assessment In general, health is: Very good Concerns with balance:Not at all Concerns with teeth or dentures:Not at all Concerns with sexual function:Not at all [place] anxious, stressed, angry, irritable, lonely, isolated, or had thoughts of hurting themself: Not at all Has little interest or pleasure in doing things: Not at all Bothered by feeling down, depressed, or hopeless: Not at all Needs help with grocery shopping, cooking, housework, bathing, grooming, dressing, eating, sitting or standing, walking, using the toilet, handling finances, taking medications, using the telephone, or driving: Yes, needs assistance with cleaning d/t chronic back pain Following safety precautions in the home environment and vehicle: removed throw rugs from floors, installed grab bars in the bathroom, handrails in stairwells, having adequate lighting, wearing seatbelt at all times?: Yes Smokes cigarettes, vapes, or chew tobacco: No Eats healthy foods including fruits, vegetables, whole grains, and fiber-rich foods: Nearly every day Number of days per week engages in exercise: 0 days Average alcohol consumption: Monthly or less Current Providers Specialists: I have reviewed specialist-related care of the patient in the medical record. Current care team: Patient Care Team: Nayana Hoang MD as PCP - General (Family Medicine) Outside specialists seen: Dr. Li (pain management) Dr. Avila (ortho) Dr. Miller (cardiology) Dr. Null (urology) Medical/Family history review Reviewed and updated problem list, medical/surgical/family/social history, medications, and allergies. Opioid use review Patient is currently using opioids. Had recent shoulder surgery, does not chronically take opiods. Depression screening Depression screening tool completed and reviewed. Based on score and interview, patient is already diagnosed with depression. Screening tool discussed with patient, and I recommended no further intervention at this time and continuing current plan of care. Cognitive screening MMSE 30/30 Cognitive screening reviewed and no further action needed (score 3-5) Functional Observation Was the patient's timed Up & Go test unsteady or ? 12 seconds? No Advance Care Planning End of Life planning discussed, including patient's advanced directive wishes: Yes has LW and DPOA. Not on file. DPOA- Logan Pedrotty Measurements BP 120/80 Pulse 83 Ht 5' 0 (1.52m) Wt 238 lb (108.0kg) SpO2 99% BMI 46.48 kg/(m^2). Last eye exam: 07/2021 Last dental exam: unsure but has appt 08/2022 Assessment/Plan - Counseled on healthy diet and regular exercise - Discussed need for and benefit of weight loss. BMI 46.48 kg/(m^2) - Fall avoidance - HIV screening - Hepatitis C screening - Depression screening - Substance use screening - Alcohol misuse screening and counseling documented in this encounter [facility] 05-26-2022 Instructions Mimi Ivy APRN.[place] - 05/26/2022 8:52 AM EDT Screening schedule The following prevention plan is recommended: MAMMOGRAM due on 11/24/2020 WHAT YOU CAN DO TO PREVENT FALLS Many falls can be prevented. By making some changes, you can lower your chances of falling. Four things YOU can do to prevent falls for you* and your caregiver 1. Begin a regular exercise program Exercise is one of the most important ways to lower your chances of falling. It makes you stronger and helps you feel better. Exercises that improve balance and coordination (like Jose Ramon Chi) are the most helpful. Lack of exercise leads to weakness and increases your chances of falling. Ask your doctor or health care provider about the best type of exercise program for you. 2. Have your health care provider review your medicines Have your doctor or pharmacist review all the medicines you take, even [id number]-[id number] medicines. As you get older, the way medicines work in your body can change. Some medicines, or combinations of medicines, can make you sleepy or dizzy and can cause you to fall. 3. Have your vision checked Have your eyes checked by an eye doctor at least once a year. You may be wearing the wrong glasses or have a condition like glaucoma or cataracts that limits your vision. Poor vision can increase your chances of falling. 4. Make your home safer About half of all falls happen at home. To make your home safer: Remove things you can trip over (like papers, books, clothes, and shoes) from stairs and places where you walk. Remove small throw rugs or use double-sided tape to keep the rugs from slipping. Keep items you use often in cabinets you can reach easily without using a step stool. Have grab bars put in next to your toilet and in the tub or shower. Use non-slip mats in the bathtub and on shower floors. Improve the lighting in your home. As you get older, you need brighter lights to see well. Hang light-weight curtains or shades to reduce glare. Have handrails and lights put in on all staircases. Wear shoes both inside and outside the house. Avoid going barefoot or wearing slippers. For more information, contact: Centers for Disease Control and Prevention www.cdc.gov/injury * This information may not apply if you have certain medical conditions. documented in this encounter [facility] 04-25-[address] Miller-Please let patient and Dr. Thai Avila's office know that her stress test showed no evidence of ischemia and she is considered low risk for planned moderate risk orthopedic surgery can proceed without further cardiac evaluation. An addendum was placed to my office note Notified pt and Amanda at [facility] of above note and will be faxing clearance back to [facility]. documented in this encounter [facility] 04-24-2022 Miscellaneous Notes Talked with neville and she did have MMR in 2004 If she had MMR vaccine before she should be protected. Neville called concerned about getting whooping cough. She was visiting [facility] friends and there children were exposed to whooping cough but the kids wee not showing signs of symptoms and she was on a course of antibiotics when she visited. Could she get whooping cough by being on an antibiotic or if the children become sick could she pass the illness on to other people. documented in this encounter [facility] 04-24-2022 History of Presen t illness Narrative RADIOLOGY SERVICE PROGRESS NOTE SERVICE DATE: 04/24/2022 SERVICE TIME: 9:11 AM PATIENT IDENTITY VERIFICATION COMPLETED USING TWO (2) STANDARD IDENTIFIERS: Name and Date of confirmed by patient verbally FALL SCREENING: Has the patient had 2 falls in the last year or 1 fall with injury or currently using an Ambulatory Assistive Device (Walker, Cane, Wheelchair, Crutches, etc.)? No PATIENT GENDER DATA: .female : No ALLERGIES: Reviewed and unchanged MEDICATIONS REVIEWED: Not applicable PATIENT RELEVANT IMPLANT DATA REVIEWED: Not Applicable CREATININE: Creatinine Date Value Ref Range Status 04/03/2022 1.22 (H) 0.51 - 0.95 mg/dL Final Comment: Patients receiving either N-Acetylcysteine (NAC) or Metamizole prior to venipuncture, may have falsely depressed results. 12/14/2021 1.05 (H) 0.51 - 0.95 mg/dL Final Comment: Patients receiving either N-Acetylcysteine (NAC) or Metamizole prior to venipuncture, may have falsely depressed results. 09/14/2021 1.06 (H) 0.51 - 0.95 mg/dL Final Comment: Patients receiving either N-Acetylcysteine (NAC) or Metamizole prior to venipuncture, may have falsely depressed results. Estimated Glomerular Filtration Rate Date Value Ref Range Status 04/03/2022 50 (L) >=60 mL/min/1.73m Final Comment: Estimated Glomerular Filtration Rate (eGFR) is calculated using the 2020 CKD-EPI creatinine equation. This equation utilizes serum creatinine, sex, and age as parameters. The creatinine assay has traceable calibration to isotope dilution-mass spectrometry. Refer to KDIGO guidelines for clinical interpretation. In patients with unstable renal function, e.g. those with acute kidney injury, the eGFR may not accurately reflect actual GFR. eGFR- Date Value Ref Range Status 06/28/2021 55 Final P.O.C.T. RESULTS: N/A April 24, [address] PERFORMED: No IV SITE: Ambulatory: A peripheral IV was started in the Left antecubital site with a Angio cath: 22 gauge. POST EXAM PIV STATUS: Discontinued PROCEDURE TYPE: NM Stress: 15.7 mCi [id number] was administered IV for Rest Imaging at 07:20 by [facility]. 43 mCi [id number] was administered IV for Stress Imaging at 09:05 by [facility]. ADMINISTRATION TIME: 09:05 PATIENT DISCHARGED TO: Ambulatory patient, left NM department area. A Diagnostic radioactive procedure has taken place, with no further precautions necessary other than routine body substance precautions. More information regarding radiation safety can be found using this link: [email or web address] SIGNATURE: RT Temo(R) PATIENT NAME: Neville Patel DATE: April 24, 2022 TIME: 9:11 AM PAGER/CONTACT #: documented in this encounter [facility] 04-21-2022 Miscellaneous Notes Pharmacy faxed requesting the following refill. Requested Prescriptions Pending Prescriptions Disp Refills venlafaxine ER (EFFEXOR XR) 75 mg 24 hr capsule 270 capsule 1 Sig: Take 1 capsule by mouth three times daily. Take 3 Capsules Once Daily Patient last appointment: 04/20/2022 Patient Phone numbers: [phone] (home) Request is for script(s) to be escript to pharmacy. Digna Pruett MA documented in this encounter [facility] 04-17-2022 Miscellaneous Notes Pharmacy faxed requesting the following refill. Requested Prescriptions Pending Prescriptions Disp Refills venlafaxine ER (EFFEXOR XR) 75 mg 24 hr capsule 90 capsule 1 Sig: Take 1 capsule by mouth once daily. Patient last appointment: 04/10/2022 Patient Phone numbers: [phone] (home) Request is for script(s) to be escript to pharmacy. Noemí Pennington MA documented in this encounter [facility] 04-13-2022 History of Presen t illness Narrative Images from the original note were not included. Heart, Vascular and Thoracic [place] Department of Cardiovascular Medicine [facility] SECTION OF INTERVENTIONAL CARDIOLOGY OUTPATIENT VISIT DATE 04/13/2022 OUTPATIENT VISIT TYPE NEW PRIMARY CARE PHYSICIAN: Nayana Hoang [address] [place] [address] REFERRING PHYSICIAN: Thai Avila MD CHIEF COMPLAINT: Patient presents with: Surgical Clearance: [facility] on 04/27/2022 for Total Shoulder Arthroplasty (Left) HISTORY OF PRESENT ILLNESS: Ms. Patel is a 66 year old female smoker (quit 19) with a history of VALERIE, stage III CKD creatinine 1.22, hyperlipidemia not on statin therapy, hypertension who was referred to me for preoperative evaluation prior to total shoulder replacement tentatively scheduled 04/27/2022. Patient's activity is significantly limited by back pain and scoliosis unable to stand for more than 20 minutes. She has been having some episodes of falling which she attributes to her poor balance. Been undergoing physical therapy for her shoulder with been recommended undergo surgical repair/replacement. She denies any significant chest pain. She does have some difficulty laying flat but no bryant orthopnea or PND. She stress test many years ago which apparently was negative showed LVH. She has hyperlipidemia but has not been able to tolerate several statins due to myalgias. She is never taking coenzyme every 10 along with the statins. PAST MEDICAL HISTORY Diagnosis Date Arthritis Depression Fibromyalgia 10/21/2015 Hard of hearing bilateral hearing aides Hypertension bp controlled with medication- PCP follows Hypothyroidism PCP follows Idiopathic scoliosis Lumbar spinal stenosis 10/27/2015 Migraine, unspecified, without mention of intractable migraine without mention of status migrainosus Neuropathy 06/05/2016 Right Ulnar Neuropathy Obstructive sleep apnea 10/21/2015 cpap nightly Osteoarthritis of multiple joints 02/02/2016 Personal history of fall PTSD (post-traumatic stress disorder) Status post right shoulder hemiarthroplasty 02/02/2017 Total, mature senile cataract Wears glasses PAST SURGICAL HISTORY Procedure Laterality Date ANKLE SURGERY HX Left x2 APPENDECTOMY HX CHOLECYSTECTOMY HX CYSTOSCOPY Right D&C, DIAG AND/OR THERAPEUTIC EXTENSIVE JAW SURGERY 1989 X2 UPPER AND LOWER-maxillary and mandibular ostomies EYE SURGERY HX RETINAL DETACHMENT HYSTERECTOMY HX JOINT REPLACEMENT HX Right RIGHT SHOULDER PAST SURGICAL HISTORY OF 2014 mandibular ostomy PAST SURGICAL HISTORY OF Right 2018 scleral buckel POST-CATARACT LASER SURGERY Bilateral REMOVAL OF KIDNEY STONE LITHOTRIPSY SHOULDER SURGERY HX Bilateral arthroscopy TONSILLECTOMY HX SOCIAL HISTORY Social History Tobacco Use Smoking status: Former Packs/day: 1.00 Years: 20.00 Pack years: 20.00 Types: Cigarettes Quit date: 02/18/1999 Years since quittin.1 Passive exposure: Past Vaping Use Vaping Use: Never used Substance Use Topics Alcohol use: Yes Comment: OCCASSIONALLY Drug use: Never FAMILY HISTORY Problem Relation Age of Onset Coronary Artery Disease Mother Coronary Artery Disease Father Cancer Maternal Grandmother Cancer Maternal Grandfather Kidney Disease No Family History Hypertension No Family History Stroke No Family History Arthritis No Family History Depression No Family History Anxiety disorder No Family History ALLERGIES: ALLERGIES Allergen Reactions Adhesive Tape-Silic* Rash Rash Aspirin Other: See Comments Upset stomach, has to take enteric aspirin. Colesevelam GI Upset Ezetimibe Other: See Comments Fenofibrate Nanocry* GI Upset Morphine Other: See Comments Flushing Nsaids (Non-Steroid* GI Upset Wxjgvil-Rjg-Itd Red* GI Upset, Myalgia Sulfa (Sulfonamide * Vomiting MEDICATIONS: POTASSIUM CHLORIDE ORAL Take 1,620 mg by mouth twice daily. baclofen (LIORESAL) 10 mg tablet Take 10 mg by mouth daily at bedtime. buPROPion (WELLBUTRIN) 100 mg tablet Take 1 tablet by mouth twice daily. (Patient taking differently: Take 200 mg by mouth every morning.) metoprolol succinate ER (TOPROL XL) 25 mg 24 hr tablet Take 0.5 tablets by mouth once daily. (Patient taking differently: Take 12.5 mg by mouth every morning.) liothyronine (CYTOMEL) 5 mcg tablet TAKE 3 TABLETS BY MOUTH DAILY IN THE MORNING (Patient taking differently: Take 15 mcg by mouth every morning. 3 TABLETS DAILY IN AM 15MCG) topiramate (TOPAMAX) 50 mg tablet Take 50 mg by mouth every morning. topiramate (TOPAMAX) 100 mg tablet Take 100 mg by mouth daily at bedtime. cyclobenzaprine (FLEXERIL) 10 mg tablet Take 1 tablet by mouth three times daily as needed. (Patient taking differently: Take 10 mg by mouth three times daily as needed. Will start flexeril after Baclofen is finished) Bacillus coagulans-Inulin (PROBIOTIC WITH PREBIOTIC) 1 billion-250 cell-mg cap Take 1 tablet by mouth daily at bedtime. diclofenac sodium 1 % kit Apply to affected area as needed. FOR ARTHRITIS aspirin, enteric coated (ASPIRIN, ENTERIC COATED) 81 mg EC tablet Take 81 mg by mouth once daily. WILL VERIFY WITH HER PCP WHEN TO STOP- will look at instructions that are at home venlafaxine ER (EFFEXOR XR) 75 mg 24 hr capsule Take 1 capsule by mouth three times daily. Take 3 Capsules Once Daily ergocalciferol 50,000 unit capsule (VITAMIN D2, DRISDOL) Take 1 capsule by mouth one time a week. Takes every Sunday pravastatin (PRAVACHOL) 20 mg tablet Take 1 tablet by mouth daily at bedtime. Coenzyme Q10 (CO Q-10) 200 mg cap Take 1 capsule by mouth once daily. PHYSICAL EXAMINATION: BP 151/73 Pulse 79 Wt 234 lb (106.1kg) SpO2 99% General:obese Head/Eyes:EOM's intact, conjunctivae , and sclera clear Mouth:good dentition Neck:no JVD, no carotid bruits, supple Lungs:clear to auscultation Heart:regular rhythm, S1, S2 normal, no S3, no S4, and no murmur Abdomen:soft, non-tender Extremities:edema Trace, non-pitting pedal Neurologic:Oriented to time, place and person, Mood & Affect: appropriate Last EKG Result Conclusion ECG COMPLETE Collected: 04/03/2022 11:40 AM (Final result) Impression: Normal sinus rhythm Counter clockwise rotation T wave abnormality, consider anterior ischemia Abnormal ECG When compared with ECG of 15-NOV-2018 12:51, No significant change was found Confirmed by DAMARIS GRAVES MOHAN ([id number]) on 04/04/2022 7:16:55 AM WBC (k/uL) Date Value 04/03/2022 6.13 RBC (m/uL) Date Value 04/03/2022 4.28 Hemoglobin (g/dL) Date Value 04/03/2022 12.5 Hematocrit (%) Date Value 04/03/2022 37.6 MCV (fL) Date Value 04/03/2022 87.9 MCH (pg) Date Value 04/03/2022 29.2 MCHC (g/dL) Date Value 04/03/2022 33.2 RDW-CV (%) Date Value 04/03/2022 12.4 Platelet Count (k/uL) Date Value 04/03/2022 309 MPV (fL) Date Value 04/03/2022 8.8 (L) Glucose (mg/dL) Date Value 04/03/2022 111 (H) BUN (mg/dL) Date Value 04/03/2022 24 Creatinine (mg/dL) Date Value 04/03/2022 1.22 (H) Sodium (mmol/L) Date Value 04/03/2022 144 Potassium (mmol/L) Date Value 04/03/2022 4.3 Chloride (mmol/L) Date Value 04/03/2022 111 (H) CO2 (mmol/L) Date Value 04/03/2022 27 Protein, Total (g/dL) Date Value 04/03/2022 6.3 Albumin (g/dL) Date Value 04/03/2022 3.7 Calcium, Total (mg/dL) Date Value 04/03/2022 9.6 Alkaline Phosphatase (U/L) Date Value 04/03/2022 115 Bilirubin, Total (mg/dL) Date Value 04/03/2022 0.3 AST (U/L) Date Value 04/03/2022 18 ALT (U/L) Date Value 04/03/2022 16 Cholesterol, Total (MG/dL) Date Value 06/28/2021 232 HDL Cholesterol (MG/DL) Date Value 06/28/2021 42 LDL Cholesterol (MG/DL) Date Value 06/28/2021 160 Triglyceride (MG/DL) Date Value 06/28/2021 149 URINALYSIS Specific Crawford, Ur Date Value Ref Range Status 11/15/2018 1.024 1.005 - 1.030 Final The 10-year ASCVD risk score (Melanie RODRIGUEZ, et al., 2019) is: 11.4% Values used to calculate the score: Age: 66 years Sex: Female Is Non- : No Diabetic: No Tobacco smoker: No Systolic Blood Pressure: 151 mmHg Is BP treated: Yes HDL Cholesterol: 42 MG/DL Total Cholesterol: 232 MG/dL CARDIOVASCULAR MEDICINE TESTING: Electrocardiogram: From 04/03/2022 personally reviewed shows normal sinus rhythm at 76 bpm, right axis deviation,. T waves V2 through V4. IMPRESSION / PLAN AND RECOMMENDATIONS: 1. Preoperative cardiovascular examination, with limited function functional capacity less than 4 METS abnormal EKG and some dyspnea on exertion, scheduled for surgical repair/replacement - NM CARDIAC PERF STRESS/PHARM; Future for further restratification 2. Obstructive sleep apnea (adult) 3. Primary hypertension, fairly well controlled slightly higher than ideal diastolic pressure defer to primary care provider to reassess after surgery - NM CARDIAC PERF STRESS/PHARM; Future 4. Mixed hyperlipidemia with Myalgia due to statin Her 10-year risk is 11.4% above the 7.5% threshold which for which statins would be recommended. She has been intolerant of multiple statins due to myalgias but never taking co-Q10 - pravastatin (PRAVACHOL) 20 mg tablet; Take 1 tablet by mouth daily at bedtime. Dispense: 90 tablet; Refill: 4 - Coenzyme Q10 (CO Q-10) 200 mg cap; Take 1 capsule by mouth once daily. Dispense: 90 capsule; Refill: 4 take 1 capsule by mouth once daily. Dispense: 90 capsule; Refill: 4 Return in about 6 months (around 10/11/2022). Addendum (04/24/2022): Patient underwent Lexiscan cardiac stress test today which showed no changes from her mildly abnormal EKG changes at baseline. There were no significant perfusion defect. There is normal LV function and no evidence of transient ischemic dilation. Based on these findings patient is low cardiac risk for planned moderate risk surgery and can proceed without further cardiac evaluation. She could either continue her low-dose aspirin which she takes for primary prevention or a can be held at the discretion of the orthopedic surgeon and restart after risk of postsurgical bleeding has passed Maddison Miller MD Board Certified in Cardiovascular Diseases and Interventional Cardiology Office [facility] documented in this encounter [facility] 04-13-2022 Nurse Note Patient had a EKG complete on 04/03/2022 (In chart for review) Patient currently is not having any heart pains she believes. She stated that it could be from her arm pain that is radiating from left to right. documented in this encounter [facility] 04-13-2022 History of Past i llness Narrative Problem Noted Date Resolved Date ABRAMS (dyspnea on exertion) 04/13/20222022 documented as of this encounter (statuses as of 07/03/2022) [facility] History of Past illness Narrative* Problem Noted Date Resolved Date ABRAMS (dyspnea on exertion) 04/13/20222022 documented as of this encounter (statuses as of 07/28/2022) [facility] History of Past illness Narrative* Problem Noted Date Resolved Date ABRAMS (dyspnea on exertion) 04/13/20222022 documented as of this encounter (statuses as of 07/27/2022) [facility] History of Past illness Narrative* Problem Noted Date Diagnosed Date Resolved Date ABRAMS (dyspnea on exertion) 04/13/2022 Acne rosacea 02/28/2018 08/14/2022 Esophageal reflux 10/21/2015 08/14/2022 documented as of this encounter (statuses as of 10/24/2022) [facility] History of Past illness Narrative* Problem Noted Date Diagnosed Date Resolved Date ABRAMS (dyspnea on exertion) 04/13/2022 Acne rosacea 02/28/2018 08/14/2022 Esophageal reflux 10/21/2015 08/14/2022 documented as of this encounter (statuses as of 04/02/2023) [facility] History of Past illness Narrative* Problem Noted Date Diagnosed Date Resolved Date ABRAMS (dyspnea on exertion) 04/13/2022 Acne rosacea 02/28/2018 08/14/2022 Esophageal reflux 10/21/2015 08/14/2022 documented as of this encounter (statuses as of 04/18/2023) [address] History of Past illness Narrative* Problem Noted Date Diagnosed Date Resolved Date ABRAMS (dyspnea on exertion) 04/13/2022 Acne rosacea 02/28/2018 08/14/2022 Esophageal reflux 10/21/2015 08/14/2022 documented as of this encounter (statuses as of 04/25/2023) [address] History of Past illness Narrative* Problem Noted Date Diagnosed Date Resolved Date ABRAMS (dyspnea on exertion) 04/13/2022 Acne rosacea 02/28/2018 08/14/2022 Esophageal reflux 10/21/2015 08/14/2022 documented as of this encounter (statuses as of 04/27/2023) [address]2023 History of Past illness Narrative* Problem Noted Date Diagnosed Date Resolved Date ABRAMS (dyspnea on exertion) 04/13/2022 Acne rosacea 02/28/2018 08/14/2022 Esophageal reflux 10/21/2015 08/14/2022 documented as of this encounter (statuses as of 04/30/2023) [address]23 History of Past illness Narrative* Problem Noted Date Diagnosed Date Resolved Date ABRAMS (dyspnea on exertion) 04/13/2022 Acne rosacea 02/28/2018 08/14/2022 Esophageal reflux 10/21/2015 08/14/2022 documented as of this encounter (statuses as of 05/04/2023) [address]23 History of Past illness Narrative* Problem Noted Date Diagnosed Date Resolved Date ABRAMS (dyspnea on exertion) 04/13/2022 Acne rosacea 02/28/2018 08/14/2022 Esophageal reflux 10/21/2015 08/14/2022 documented as of this encounter (statuses as of 05/15/2023) [facility] History of Past illness Narrative* Problem Noted Date Diagnosed Date Resolved Date ABRAMS (dyspnea on exertion) 04/13/2022 Acne rosacea 02/28/2018 08/14/2022 Esophageal reflux 10/21/2015 08/14/2022 documented as of this encounter (statuses as of 06/04/2023) [facility] History of Past illness Narrative* Problem Noted Date Diagnosed Date Resolved Date ABRASM (dyspnea on exertion) 04/13/2022 Acne rosacea 02/28/2018 08/14/2022 Esophageal reflux 10/21/2015 08/14/2022 documented as of this encounter (statuses as of 06/06/2023) [facility] Miscellaneous Notes* Telephone Encounter - Cristina Hardin - 04/13/2022 8:51 AM EST Letty from [facility] confirmed pt is in network [facility] by facility not dr Cristina Hardin * Telephone Encounter - Tiffanie Sauer RN - 04/13/2022 8:07 AM EST You can call and check with [facility]. * Telephone Encounter - Cristina Hardin - 04/12/2022 4:19 PM EST Everything I show he is covered? Any suggestions? Cristina Hardin * Telephone Encounter - Sherron Verma - 04/12/2022 4:01 PM EST Patient called her insurance and Dr. Miller is In-Network in [place], but not in [place]. So, does sheneed to cancel her appt for tomorrow? It is for Clearance. Her surgery is in 2 weeks. Please call patient to advise. [phone] documented in this encounterSt. [facility] Miscellaneous Notes* Telephone Encounter - Cristina Hardin - 04/04/2022 1:24 PM EST Spoke with pt about appt Cristina Hardin * Telephone Encounter - Jessenia Garrett - 04/04/2022 1:13 PM EST New Patient Referral Dr. Iris Patel : 1955 Reason- preoperative clearance, chest pain Records in [facility] * Telephone Encounter - Jessenia Garrett - 04/04/2022 12:44 PM EST Received a referral from Dr. Hoang's office. Patient is referred for preoperative clearance and chest pain. * Telephone Encounter - Yomaira Donis - 04/04/2022 11:44 AM EST Patient called in to schedule and appointment. Referred by Dr. Yeh. Patient is having surgery on 04/27/22. Please call patient at [phone] documented in this encounterSt. [facility]-2023 Miscellaneous Notes* Telephone Encounter - Nayana Hoang MD - 04/04/2022 9:07 AM EST Going for Total shoulder arthroplasty Need cardiology clearance. documented in this encounterSt. Anthony'[facility]02-13-[facility]23 History of Present illness Narrative* Tessie Liu MD - 04/03/2022 12:38 PM ESTSummary: DOS MEDS PATIENT MEDICATION INSTRUCTIONS Please read below carefully for your personalized instructions. Medications: If you are on blood thinner or anticoagulants including aspirin, please confirm with your surgical team on when to stop these medications. Unless instructed differently by your surgical team, stay on all of your medications until your surgery. Pre-Surgery Med Instructions Medication Instructions POTASSIUM CHLORIDE ORAL Do not take the morning of surgery baclofen (LIORESAL) 10 mg tablet venlafaxine ER (EFFEXOR XR) 75 mg 24 hr capsule Take morning of surgery with a sip of water, no other fluids buPROPion (WELLBUTRIN) 100 mg tablet Take morning of surgery with a sip of water, no other fluids metoprolol succinate ER (TOPROL XL) 25 mg 24 hr tablet Take morning of surgery with a sip of water,no other fluids liothyronine (CYTOMEL) 5 mcg tablet Take morning of surgery with a sip of water, no other fluids topiramate (TOPAMAX) 50 mg tablet Take mooring of surgery topiramate (TOPAMAX) 100 mg tablet ergocalciferol 50,000 unit capsule (VITAMIN D2, DRISDOL) cyclobenzaprine (FLEXERIL) 10 mg tablet As needed Bacillus coagulans-Inulin (PROBIOTIC WITH PREBIOTIC) 1 billion-250 cell-mg cap diclofenac sodium 1 % kit aspirin, enteric coated (ASPIRIN, ENTERIC COATED) 81 mg EC tablet If you have any medication changes between receiving these instructions and your surgery date, please provide this updated information with the nurse who calls you the week day prior to your surgicalprocedure so we can update your list and provide you with updated instructions for the morning of your procedure. * Daily Sanabria APRN.NIGHT CLEANER - 04/03/2022 11:30 AM ESTSummary: [facility] Anesthesia Consult 04/27/22 - Melissa Avila Chart Review (Alexa 04/03/22): 66 yo [place] woman with PMHx depression, HTN, hyothyroid, and VALERIE. Has had right shoulder replaced already. [facility] APPOINTMENT (Alexa 04/03/22): I met Neville and her today in [facility]. Her EKG suggests possible anterior ischemia, cannot remember last time she had one. She tells me she is intolerant to statins, was on Vascepta for years had to d/c it due to side effects. I found a note from [address] Weiss suggested considering a PCSK9 inhibitor, but it never happened. She has a new PCP, Aneudy Yeh, since Mimi Weiss left her practice and Neville tells me that she told Aneudy Yeh in a office visit 01/10 that she was having bilateral upper chest discomfort with LUE radicular type pain into her hand. Shesaid diclofenac cream and CBD cream took care of chest wall discomfort. Strong FMHx of premature CAD and CV , I told her that she will probably need to do a stress test prior to this OR. Also, she states that after L TSA, she had a severe radial nerve injury and Kathy claims he 'discussed' itwith her anesthesiologist for the day and she was never told what was more likely to have been the mechanism of injury - she still has numbness in radial distrubution in the right hand. We discussed that it is totally up to her if she wishes an ISB for this OR - she is leaning towards having the block. She is rather sedentary due to lumbar spine issues, so all the more reason to work up the potential ischemia on her EKG. Today: 115/52 - 74 - 20 - 95% sat RA. Have faxed EKG and communications toboth Aneudy Yeh and Dr. Avila. 04/04/22 ([facility]): CMP: Glucose 111 04/03/2022 BUN 24 04/03/2022 Creatinine 1.22 04/03/2022 Sodium 144 04/03/2022 Potassium 4.3 04/03/2022 Chloride 111 04/03/2022 CO2 27 04/03/2022 Protein, Total 6.3 04/03/2022 Albumin 3.7 04/03/2022 Calcium 9.6 04/03/2022 Alkaline Phosphatase 115 04/03/2022 Bilirubin, Total 0.3 04/03/2022 AST 18 04/03/2022 ALT 16 04/03/2022 GFR 50 04/03/22 FERRITIN 110.6, IRON 72, TIBC 346, T-SAT 20.8 A1C 5.6 PT 9.9, INR 1.0, PTT 25.1 MRSA/SA NEGATIVE B+ BLOOD Hemoglobin Date Value 04/03/2022 12.5 g/dL 06/28/2021 13.4 G/DL Hematocrit (%) Date Value 04/03/2022 37.6 06/28/2021 41.7 WBC Date Value 04/03/2022 6.13 k/uL 06/28/2021 6.2 K/CUMM Platelet Count Date Value 04/03/2022 309 k/uL 06/28/2021 327 K/CU MM documented in this encounterSt. [facility] Hospital01-30-2023 Miscellaneous Notes* Telephone Encounter - Noemí Pennington MA - 03/20/2022 12:05 PM EST Pharmacy faxed requesting the following refill. Requested Prescriptions Pending Prescriptions Disp Refills venlafaxine XR (EFFEXOR XR) 75 mg tr24 270 tablet 3 Sig: Take 3 tablets by mouth once daily. Taking 3 at once buPROPion (WELLBUTRIN) 100 mg tablet 180 tablet 3 Sig: Take 1 tablet by mouth twice daily. metoprolol succinate ER (TOPROL XL) 25 mg 24 hr tablet 45 tablet 3 Sig: Take 0.5 tablets by mouth once daily. Patient last appointment: 03/16/2022 Patient Phone numbers: [phone] (home) Request is for script(s) to be escript to pharmacy. Noemí Pennington MA documented in this encounterSt. Anthony'S Hospital01-27-2023 Miscellaneous Notes* Telephone Encounter - Noemí Pennington MA - 03/17/2022 7:39 AM EST Pharmacy MyChart message requesting the following refill. Requested Prescriptions Pending Prescriptions Disp Refills liothyronine (CYTOMEL) 5 mcg tablet [Pharmacy Med Name: Liothyronine Sodium 5 MCG Oral Tablet] 270 tablet 3 Sig: TAKE 3 TABLETS BY MOUTH DAILY IN THE MORNING Patient last appointment: 02/21/2022 Patient Phone numbers: [phone] (home) Request is for script(s) to be escript to pharmacy. Noemí Pennington MA documented in this encounterSt. Anthony'S Hospital01-03-2023 Miscellaneous Notes* Addendum Note - Nayana Hoang MD - 02/21/2022 9:46 AM ESTAddended by: NAYANA HOANG on: 02/21/2022 09:46 AM Modules accepted: Orders documented in this encounterSt. Anthony'S Hospital01-03-2023 History of Present illness Narrative* Nayana Hoang MD - 02/21/2022 9:00 AM EST Office follow up note: 66 year old female, presents today for follow up visit. Hypothyroidism on cytomel TSH (UIU/ML) Date Value 06/28/2021 2.014 12/27/2020 1.191 ) Chronic back pain , spinal stenosis Moderate worse with activity taking pain medications. Obesity BMI 44 Discussed weight loss Hypertension controlled. On metoprolol Shoulder pain had hx of shoulder surgery Left worse Pain with movement Can be severe at at times Worse with exercise. Seeing pain management Following with orthopedics. Had cortisone injections. ALLERGIES Allergen Reactions Adhesive Tape-Silic* Rash Rash Aspirin Other: See Comments Upset stomach, has to take enteric aspirin. Morphine Other: See Comments Flushing Nsaids (Non-Steroid* GI Upset Sulfa (Sulfonamide * Vomiting PAST MEDICAL HISTORY Diagnosis Date Depression Hypertension Hypothyroidism Obstructive sleep apnea PAST SURGICAL HISTORY Procedure Laterality Date APPENDECTOMY HX CHOLECYSTECTOMY HX HYSTERECTOMY HX FAMILY HISTORY Problem Relation Age of Onset Cancer Maternal Grandfather Cancer Maternal Grandmother Coronary Artery Disease Father Coronary Artery Disease Mother REVIEW OF SYSTEMS: GENERAL: Negative for malaise, significant weight loss, night sweats and fever HEENT: No changes in hearing or vision. No sinus pain or pressure, No trouble swallowing RESPIRATORY: Negative for cough, wheezing and shortness of breath CADIOVASCULAR: Negative for chest pain, leg swelling, palpitations, orthopnea GI: Negative for abdominal discomfort, hematochezia, melena, hematemesis, change in bowel habits, diarrhea, constipation, nausea or vomiting. : Negative for dysuria, frequency and incontinence HEMATOLOGY Negative for prolonged bleeding, bruising easily, and swollen nodes. ENDOCRINE: Negative for cold or heat intolerance, polyuria, polydipsia and goiter. NEURO: neuropathy. PHYSICAL EXAM: BP: 130/84 Temp: 36.1 C (97 F) Temp src: Temporal Pulse: 68 Resp: 18 SpO2: 97 % GENERAL: Healthy, alert, no distress, cooperative SKIN: Skin color, texture, turgor normal. No rashes or lesions. HEENT: PERRL, EOMI, and normal dentition CARDIAC: Normal S1 and S2; no rubs, murmurs, or gallops LUNGS: Lungs clear to auscultation, Good diaphragmatic excursion ABDOMEN: Non distended, positive bowel sounds all 4 quadrants, soft non-tender, no organomegaly NEURO: Gait normal. Reflexes normal and symmetric. Sensation grossly intact, Cranial nerves II-XII intact PULSES: 2+ radial LAB RESULTS: Results for orders placed or performed in visit on 12/14/21 BASIC METABOLIC PNL Result Value Ref Range Glucose 96 70 - 100 mg/dL BUN 31 (H) 7 - 26 mg/dL Creatinine 1.05 (H) 0.51 - 0.95 mg/dL Sodium 145 136 - 145 mmol/L Potassium 4.3 3.5 - 5.1 mmol/L Chloride 111 (H) 98 - 107 mmol/L CO2 25 21 - 32 mmol/L Anion Gap 9 5 - 16 mmol/L Calcium, Total 10.4 8.5 - 10.5 mg/dL Estimated Glomerular Filtration Rate 59 (L) >=60 mL/min/1.73m URINE CULTURE Specimen: OTHER(SPECIFY IN COMMENTS); Urine Random Result Value Ref Range Culture, Urine (A) 50,000-<100,000 CFU/mL Three or more organisms, no one type predominant, suggesting contamination during collection. Recollect if clinically indicated. Disabilty forms filled. Time spent 50 minutes. ASSESSMENT/PLAN: 1. Hypertension, unspecified type - ICD9: 401.9, ICD10: I10 (primary diagnosis) - good control - Continue current medication(s) - Recommended regular aerobic exercise. - Recommend home blood pressure monitoring, to bring results in on next visit - Goal of BP <130/80 - CBC - COMP METABOLIC PANEL 2. Hyperlipidemia, unspecified hyperlipidemia type - ICD9: 272.4, ICD10: E78.5 - good control - Continue current medication. - Check fasting lipid panel and ALT. - LIPID PANEL BASIC 3. Radiculopathy, lumbar region - ICD9: 724.4, ICD10: M54.16 Mechanical low back pain - CYCLOBENZAPRINE 10 MG TABLET 4. Acquired hypothyroidism - ICD9: 244.9, ICD10: E03.9 - Instructed patient on importance of taking on an empty stomach either first thing in the morning or at bedtime. Stable - TSH BLD 5. Prediabetes - ICD9: 790.29, ICD10: R73.03 - HGB A1C 6. Morbid obesity with BMI of 40.0-44.9, adult (HCC) - ICD9: 278.01, V85.41, ICD10: E66.01, Z68.41 Stable - Behavioral intervention 7. Osteoarthritis of multiple joints, unspecified osteoarthritis type - ICD9: 715.89, ICD10: M15.9 8. Stage 3a chronic kidney disease (HCC) - ICD9: 585.3, ICD10: N18.31 - eGFR: Stable - Counseled on avoiding regular use of NSAIDs, adequate hydration, potential risk of IV dye - Recommend maintaining A1c < 7% - ALBUMIN/CREAT RATIO RND UR 9. Encounter for immunization - ICD9: V03.89, ICD10: Z23 - INFLUENZA VACCINE QUADRIVALENT 6 MO - 64 YRS IM 10. Vitamin D deficiency - ICD9: 268.9, ICD10: E55.9 - ERGOCALCIFEROL (VITAMIN D2) 1,250 MCG (50,000 UNIT) CAPSULE - VITAMIN D 25 HYDROXY Nayana Hoang MD documented in this encounterSt. Anthony'S Hospital09-07-2022 History of Present illness Narrative* Maegan Garrett RN - 10/26/2021 2:46 PM EDT Patient found to have possible noncompliance or refills needing picked up per insurance report. Will follow up with patient and pharmacy. documented in this encounterSt. Anthony'S Hospital08-12-2022 Miscellaneous Notes* Telephone Encounter - Noemí Pennington MA - 09/30/2021 4:38 PM EDT Pharmacy faxed requesting the following refill. Requested Prescriptions Pending Prescriptions Disp Refills liothyronine (CYTOMEL) 5 mcg tablet Sig: Take 3 Tablets In the Morning Signed Prescriptions Disp Refills ergocalciferol 50,000 unit capsule (VITAMIN D2, DRISDOL) 6 capsule 1 Sig: Take 1 capsule by mouth every 2 weeks. Authorizing Provider: NAYANA HOANG Patient last appointment: 08/12/2021 Patient Phone numbers: [phone] (home) Request is for script(s) to be escript to pharmacy. Noemí Pennington MA * Telephone Encounter - Noemí Pennington MA - 08/15/2021 2:50 PM EDT Pharmacy faxed requesting the following refill. Pending Prescriptions Disp Refills ERGOCALCIFEROL (VITAMIN D2) 1,250 MCG (50,000 UNIT) CAPSULE 13 capsule 0 Sig: Take 1 capsule by mouth one time a week. MARICRUZ: No Patient last appointment: 08/12/2021 Patient Phone numbers: [phone] (home) [phone] (work) Request is for script(s) to be escript to pharmacy. Noemí Pennington MA documented in this encounterSt. [facility]'S Hospital08-01-2022 History of Present illness Narrative* Tasha Worthington MD - 09/19/2021 11:46 AM EDT [facility] [address] [facility] [id number] Neville Patel 1955 September 19, 2021 Visit Type: Follow-up Sleep Clinic Patient Visit Primary Provider: Nayana Hoang MD CC: Sleep compliance f/u History of Present Illness: CC: Sleep compliance f/u [place] Score: 4 Compliance Report: 08/14/21-09/12/21 >=4hrs 93% <4hrs 3% Min Pressure 5cmH2O Max Pressure [id number] Leaks 95th% 5.0 AHI 2.5 Bedtime 11pm, falls right to sleep. Machine annoys her and wakes her up. Wearing a full face mask XS. Her 3rd mask and this ones the best. Puts pressure on her cheeks and back of neck. Once asleep she wakes up a lot. Waketime 6:30-7:30AM, She'll take her machine off and go back to sleep till noon. She has a lot of body aches. Naps during the day a few hours. Overall she does not feel she is benefiting from using the cpap machine. 66 year old female, has been having trouble with CPAP mask and c/o CPAP intolerance. She uses everynight but not getting enough sleep and takes naps. She had jaw surgery in the past. PAST MEDICAL HISTORY Diagnosis Date Depression Hypertension Hypothyroidism Obstructive sleep apnea PAST SURGICAL HISTORY Procedure Laterality Date APPENDECTOMY HX CHOLECYSTECTOMY HX HYSTERECTOMY HX Family History Problem Relation Age of Onset Cancer Maternal Grandfather Cancer Maternal Grandmother Coronary Artery Disease Father Coronary Artery Disease Mother Social History Tobacco Use Smoking status: Never Smoker Smokeless tobacco: Not on file Substance Use Topics Alcohol use: Yes Drug use: Not on file Current Outpatient Medications on File Prior to Visit Medication Sig venlafaxine XR (EFFEXOR XR) 75 mg tr24 Take 225 mg by mouth once daily. Taking 3 at once Bacillus coagulans-Inulin (PROBIOTIC WITH PREBIOTIC) 1 billion-250 cell-mg cap Take by mouth. diclofenac-met salicyl-menthol (DICLOPR) 1-30-10 % combo pack Apply to affected area. Apply diclofenac topical gel to the affected area daily as directed. Apply methyl salicylate-menthol cream to theaffected area as directed. diclofenac sodium 1 % kit Apply to affected area. ergocalciferol 50,000 unit capsule (VITAMIN D2, DRISDOL) Take 1 capsule by mouth every 2 weeks. aspirin, enteric coated (ASPIRIN, ENTERIC COATED) 81 mg EC tablet Take 81 mg by mouth once daily. baclofen (LIORESAL) 10 mg tablet Take 10 mg by mouth three times daily. buPROPion (WELLBUTRIN) 100 mg tablet Take 100 mg by mouth twice daily. metoprolol succinate ER (TOPROL XL) 25 mg 24 hr tablet Take 12.5 mg by mouth once daily. liothyronine (CYTOMEL) 5 mcg tablet Take 5 mcg by mouth once daily. topiramate (TOPAMAX) 15 mg capsule Take 250 mg by mouth twice daily. As directed. Shell be taking 200mg in 1 week No current facility-administered medications on file prior to visit. Allergies: Adhesive Tape-Silic* Rash Comment:Rash Aspirin Other: See Comments Comment:Upset stomach, has to take enteric aspirin. Morphine Other: See Comments Comment:Flushing Nsaids (Non-Steroid* GI Upset Sulfa (Sulfonamide * Vomiting Vital Signs: BP 185/101 (BP Site: Right Arm, BP Position: Sitting) Pulse 71 Temp 36.4 C (97.6 F) Resp 16 Ht 149.9 cm (4' 11) Wt 100.7 kg (222 lb) SpO2 98% BMI 44.84 kg/m Neck Cir: 14 in Physical Exam: General appearance: Well developed, well nourished, in no acute distress. BMI 44.84 Head: Normocephalic and atraumatic Eyes: PERRLA/EOM intact; conjunctiva and sclera clear Nose: No discharge or lesions Mouth: No deformity or lesions Neck: No masses, thyromegaly, or abnormal cervical nodes Chest wall: No deformities or tenderness noted Lungs: Clear breath sounds bilaterally to auscultation and percussion Heart: Regular rate and rhythm, S1, S2 without murmurs, rubs, gallops, or clicks Abdomen: Bowel sounds positive, abdomen soft and non-tender without masses, or organomegaly MSK: No deformity or scoliosis noted with normal posture Extremities: No clubbing, cyanosis, edema, or deformity noted Neurologic: CN II-XII grossly intact with normal reflexes, coordination, muscle strength and tone Impression & Recommendations:(G47.33, Z99.89) VALERIE on CPAP (primary encounter diagnosis) Comment: Plan: Will try full cushion FFM/medium mask and encouraged to use CPAP every night. She declined totake lunesta at bed time. (E66.01) Morbid obesity (HCC) Comment: Lose weight. Plan: Patient Instructions: Full cushion FFM ordered. Lose weight. documented in this encounterSt. Anthony'S Hospital06-24-2022 Miscellaneous Notes* Telephone Encounter - Digna Pruett MA - 08/12/2021 11:53 AM EDT Pharmacy faxed requesting the following refill. Pending Prescriptions Disp Refills ERGOCALCIFEROL (VITAMIN D2) 1,250 MCG (50,000 UNIT) CAPSULE 13 capsule 0 Sig: Take 1 capsule by mouth one time a week. MARICRUZ: No Patient last appointment: Visit date not found Patient Phone numbers: [phone] (home) [phone] (work) Request is for script(s) to be escript to pharmacy. Digna Pruett MA documented in this encounter[facility]* Diagnosis VALERIE on CPAP- Primary Obstructive sleep apnea (adult) (pediatric) Morbid obesity (HCC) Morbid obesity documented in this encounter [facility]* Diagnosis Hypertension, unspecified type- Primary Hyperlipidemia, unspecified hyperlipidemia type Radiculopathy, lumbar region Thoracic or lumbosacral neuritis or radiculitis, unspecified Acquired hypothyroidism Unspecified hypothyroidism Prediabetes Other abnormal glucose Morbid obesity with BMI of 40.0-44.9, adult (HCC) Morbid obesity Osteoarthritis of multiple joints, unspecified osteoarthritis type Stage 3a chronic kidney disease (HCC) Encounter for immunization Need for other specified prophylactic vaccination against single bacterial disease Vitamin D deficiency Unspecified vitamin D deficiency Encounter for screening mammogram for breast cancer Scoliosis, unspecified scoliosis type, unspecified spinal region documented in this encounter [facility]* Diagnosis Anxiety with depression- Primary Hypertension, essential Unspecified essential hypertension documented in this encounter [facility]* Diagnosis Anxiety with depression- Primary documented in this encounter [facility] note* Diagnosis Preoperative clearance- Primary Preoperative examination, unspecified Chest pain, unspecified type Primary osteoarthritis of left shoulder Primary localized osteoarthrosis, shoulder region documented in this encounter [facility]* Diagnosis Preop testing- Primary Preoperative examination, unspecified Primary osteoarthritis of left shoulder Primary localized osteoarthrosis, shoulder region [facility]* Diagnosis Anxiety with depression Primary osteoarthritis of left shoulder Primary localized osteoarthrosis, shoulder region [facility]* Diagnosis Anxiety with depression Primary osteoarthritis of left shoulder Primary localized osteoarthrosis, shoulder region [facility] this [facility]* Diagnosis Primary hypertension- Primary Unspecified essential hypertension Obstructive sleep apnea (adult) (pediatric) ABRAMS (dyspnea on exertion) Other dyspnea and respiratory abnormality Arthralgia of shoulder region, left Pain in joint, shoulder region Preoperative cardiovascular examination Pre-operative cardiovascular examination Abnormal EKG Nonspecific abnormal electrocardiogram (ECG) (EKG) Mixed hyperlipidemia Myalgia due to statin Primary osteoarthritis of left shoulder Primary localized osteoarthrosis, shoulder region [facility] this encounter [facility]* Diagnosis Primary hypertension Unspecified essential hypertension Obstructive sleep apnea (adult) (pediatric) ABRAMS (dyspnea on exertion) Other dyspnea and respiratory abnormality Arthralgia of shoulder region, left Pain in joint, shoulder region Preoperative cardiovascular examination Pre-operative cardiovascular examination Abnormal EKG Nonspecific abnormal electrocardiogram (ECG) (EKG) Primary osteoarthritis of left shoulder Primary localized osteoarthrosis, shoulder region [facility]* Diagnosis Medicare annual wellness visit, subsequent- Primary Routine general medical examination at a health care facility Special screening examination for viral disease Special screening examination for unspecified viral disease Screening for HIV (human immunodeficiency virus) Special screening examination for other specified viral diseases Anxiety with depression [facility] Diagnosis Vitamin D deficiency Unspecified vitamin D deficiency [facility]* Diagnosis Acquired hypothyroidism- Primary Unspecified hypothyroidism Major depressive disorder, recurrent severe without psychotic features (HCC) Major depressive disorder, recurrent episode, severe, without mention of psychotic behavior Stage 3a chronic kidney disease (HCC) Hyperlipidemia, unspecified hyperlipidemia type Prediabetes Other abnormal glucose Vitamin D deficiency Unspecified vitamin D deficiency URI, acute Acute upper respiratory infections of unspecified site documented in this encounter [facility]* Diagnosis Morbid obesity with BMI of 40.0-44.9, adult (HCC) Morbid obesity documented [facility] this [facility]* Diagnosis Radiculopathy, lumbar region Thoracic or lumbosacral neuritis or radiculitis, unspecified documented [facility] this [facility]* Diagnosis Encounter for screening mammogram for breast cancer- Primary documented in this encounter [facility] note* Diagnosis Anxiety with depression documented in this encounter [facility] note* Diagnosis Combined hyperlipidemia- Primary Mixed hyperlipidemia Major depressive disorder, recurrent severe without psychotic features (HCC) Major depressive disorder, recurrent episode, severe, without mention of psychotic behavior Morbid obesity with BMI of 40.0-44.9, adult (HCC) Morbid obesity Stage 3a chronic kidney disease (HCC) Hypertension, essential Unspecified essential hypertension Acquired hypothyroidism Unspecified hypothyroidism documented in this encounter [facility] note* Diagnosis Major depressive disorder, recurrent severe without psychotic features (HCC)- Primary Major depressive disorder, recurrent episode, severe, without mention of psychotic behavior documented in this encounter [facility] note* Diagnosis Vitamin D deficiency Unspecified vitamin D deficiency Radiculopathy, lumbar region Thoracic or lumbosacral neuritis or radiculitis, unspecified Hypertension, essential Unspecified essential hypertension documented in this encounter [facility] note* Diagnosis Vitamin D deficiency Unspecified vitamin D deficiency documented in this encounter [facility] note* Diagnosis Major depressive disorder, recurrent severe without psychotic features (HCC) Major depressive disorder, recurrent episode, severe, without mention of psychotic behavior documented in this encounter [facility] note* Diagnosis Hypertension, essential Unspecified essential hypertension documented in this encounter [facility] note* Diagnosis Encounter for screening mammogram for breast cancer [facility] Diagnosis Radiculopathy, lumbar region Thoracic or lumbosacral neuritis or radiculitis, unspecified documented in this encounter [facility] note* Diagnosis Anxiety with depression [facility]* Diagnosis Anxiety with depression- Primary documented in this encounter [facility]* Diagnosis Influenza- Primary Influenza with other respiratory manifestations documented in this encounter [facility] note* Diagnosis Vitamin D deficiency Unspecified vitamin D deficiency documented in this encounter [facility] note* Diagnosis Bacterial sinusitis- Primary Unspecified sinusitis (chronic) Jaw pain, non-TMJ Jaw pain Edema of face Edema documented in this encounter [facility] note* Diagnosis Hypertension, essential Unspecified essential hypertension documented in this encounter [facility] note* Diagnosis Encounter for screening mammogram for breast cancer [facility] noteNo assessment information availableWKing's [facility] [place] Work Phone: Reason for referral (narrative)* Diagnostic Procedure Only (Routine) - Pending Review Specialty Diagnoses / Procedures Referred By Contac t Referred To Contact XR IMAGING Diagnoses Scoliosis, unspecified scoliosis type, unspecified spinal region Procedures XR SCOLIOSIS PA STAND 1V RADEX ENTIR THRC LMBR CRV SAC SPI W/SKULL 1 VW Nayana Hoang MD [address] [place] [address] Xr Imaging Referral ID Status Reason Start Date Expiration Date Visits Requested Visits Authorized [id number] Pending Review Auto-Generat ed Referral 02/21/2022 03/23/2023 1 1 * Diagnostic Procedure Only (Routine) - Pending Review Specialty Diagnoses / Procedures Referred By Contac t Referred To Contact BR IMAGING Diagnoses Encounter for screening mammogram for breast cancer Procedures LINDA SCREENING SCREENING MAMMOGRAPHY BI 2-VIEW BREAST INC CAD Nayana Hoang MD [address] [place] [address] Br Imaging [address] [place] [address] Referral ID Status Reason Start Date Expiration Date Visits Requested Visits Authorized [id number] Pending Review Auto-Generat ed Referral 02/21/2022 03/23/2023 1 1 [facility] for referral (narrative)* Outpatient Procedure (Routine) - Closed Specialty Diagnoses / Procedures Referred By Contac t Referred To Contact [facility] Diagnoses Preop testing Procedures ECG COMPLETE ECG ROUTINE ECG W/LEAST 12 LDS W/I&R Thai Avila MD [address] [place] [address] [facility] [address] [place] [address] Referral ID Status Reason Start Date Expiration Date V isits Requested Visits Authorized [id number] Closed Auto-Generate d Referral 04/03/2022 03/30/2023 1 1 [facility] for referral (narrative)* Diagnostic Procedure Only (Routine) - Closed Specialty Diagnoses / Procedures [facility] MOLECULAR & FUNCTIONAL IMAGING Diagnoses Primary hypertension Obstructive sleep apnea (adult) (pediatric) ABRAMS (dyspnea on exertion) Arthralgia of shoulder region, left Preoperative cardiovascular examination Abnormal EKG Procedures NM CARDIAC PERF STRESS/PHARM MYOCARDIAL SPECT MULTIPLE STUDIES Maddison Miller MD [address] [place] [place] [address] Molecular [facility] [address] [place] [address] Referral ID Status Reason Start Date Expiration Date V isits Requested Visits Authorized [id number] Closed Auto-Generate d Referral 04/20/2022 05/13/2023 1 1 [facility] for referral (narrative)* Diagnostic Procedure Only (Routine) - Closed Specialty Diagnoses / Procedures [facility] To Contact MOLECULAR & FUNCTIONAL IMAGING Diagnoses Primary hypertension Obstructive sleep apnea (adult) (pediatric) ABRAMS (dyspnea on exertion) Arthralgia of shoulder region, left Preoperative cardiovascular examination Abnormal EKG Procedures NM CARDIAC PERF STRESS/PHARM MYOCARDIAL SPECT MULTIPLE STUDIES Maddison Miller MD [address] [place] [address] [facility] [address] [place] [address] Referral ID Status Reason Start Date Expiration Date V isits Requested Visits Authorized [id number] Closed Auto-Generate d Referral 04/20/2022 05/13/2023 1 1 [facility] for referral (narrative)* Diagnostic Procedure Only (Routine) - Authorized Specialty Diagnoses / Procedures [facility] Ref[facility] To Contact BR IMAGING Diagnoses Encounter for screening mammogram for breast cancer Procedures LINDA SCREENING SCREENING MAMMOGRAPHY BI 2-VIEW BREAST INC CAD Nayana Hoang MD [address] [place] [address] Br Imaging [address] [place] [address] Referral ID Status Reason Start Date Expiration Date Visits Requested Visits Authorized [id number] Authorized Auto-Generat ed Referral 04/18/2023 05/17/2024 1 1 [facility] for referral (narrative)* Diagnostic Procedure Only (Routine) - Closed Specialty Diagnoses / Procedures Referred By Contac t Referred To Contact BR IMAGING Diagnoses Encounter for screening mammogram for breast cancer Procedures LINDA SCREENING SCREENING MAMMOGRAPHY BI 2-VIEW BREAST INC Nayana Forte MD [address] [facility] [place] [address] [place] [phone] Referral ID Status Reason Start Date Expiration Date V isits Requested Visits Authorized [id number] Closed Auto-Generate d Referral 04/18/2023 05/17/2024 1 1 [facility] for referral (narrative)No reason for referral information availableWKing's [facility]aughters [facility] [place] Work Phone: Reason for visit Narrative* Outpatient Procedure (Routine) - Closed Specialty Diagnoses / Procedures Referred By Contac t Referred To Contact [facility] Diagnoses Preop testing Procedures ECG COMPLETE ECG ROUTINE ECG W/LEAST 12 LDS W/I&R Thai Avila MD [address] [place] [address] [facility] [address] [place] [address] Referral ID Status Reason Start Date Expiration Date V isits Requested Visits Authorized [id number] Closed Auto-Generate d Referral 04/03/2022 03/30/2023 1 1 [facility] [place] [facility] for visit Narrative* Diagnostic Procedure Only (Routine) - Closed Specialty Diagnoses / Procedures Referred By Contac t Referred To Contact MOLECULAR & FUNCTIONAL IMAGING Diagnoses Primary hypertension Obstructive sleep apnea (adult) (pediatric) ABRAMS (dyspnea on exertion) Arthralgia of shoulder region, left Preoperative cardiovascular examination Abnormal EKG Procedures NM CARDIAC PERF STRESS/PHARM MYOCARDIAL SPECT MULTIPLE STUDIES Maddison Miller MD [address] [place] [address] Molecular [facility] Functional Imaging [address] [place] [address] Referral ID Status Reason Start Date Expiration Date V isits Requested Visits Authorized [id number] Closed Auto-Generate d Referral 04/20/2022 05/13/2023 1 1 [facility] [place] [facility] for visit Narrative* Diagnostic Procedure Only (Routine) - Closed Specialty Diagnoses / Procedures Referred By Marquita t Referred To Contact BR IMAGING Diagnoses Encounter for screening mammogram for breast cancer Procedures [facility] SCREENING SCREENING MAMMOGRAPHY BI 2-VIEW BREAST INC CAD Al Nayana Yeh MD [address] [place] [address] Br Imaging [address] [place] [address] Referral ID Status Reason Start Date Expiration Date V isits Requested Visits Authorized [id number] Closed Auto-Generate d Referral 04/18/2023 05/17/2024 1 1 [facility] [place] [facility] for visit Narrative* Diagnostic Procedure Only (Routine) - Closed Specialty Diagnoses / Procedures Referred By Marquita Referred To Contact MOLECULAR & FUNCTIONAL IMAGING Diagnoses Primary hypertension Obstructive sleep apnea (adult) (pediatric) ABRAMS (dyspnea on exertion) Arthralgia of shoulder region, left Preoperative cardiovascular examination Abnormal EKG Procedures NM CARDIAC PERF STRESS/PHARM MYOCARDIAL SPECT MULTIPLE STUDIES Maddison Miller MD [address] [place] [address] Molecular & Functional Imaging [address] [place] [address] Referral ID Status Reason Start Date Expiration Date V isits Requested Visits Authorized [id number] Closed Auto-Generate d Referral 04/20/2022 05/13/[address] [facility] Summary Purpose Family History No Family History Records FoundNo Family History Records FoundNo Family History Records FoundNo Family History Records FoundNo Family History Records Found Advance Directives No Advanced Directives Records FoundNo Advanced Directives Records FoundNo Advanced Directives Records FoundNo Advanced Directives Records FoundNo Advanced Directives Records Found Reason for Referral Specialty Diagnoses / Procedures Referred By Contac t Referred To Contact Cardiology Diagnoses Preoperative clearance Chest pain, unspecified type Procedures CONSULT TO CARDIOLOGY OFFICE/OUTPATIENT NEW HIGH MDM 60-74 MINUTES Nayana Hoang MD [address] [place] [address] Referral ID Status Reason Start Date Expiration Date Visits Requested Visits Authorized [id number] Pending Review PCP Requested Referral 04/04/2022 04/04/2023 1 1 Chief Complaint and Reason for Visit Chief Complaint Admit Date STONES, LT FLANK PAIN June 30, 2024 12: 36pm Additional Source Comments Source Comments (unrecognize d section and content) In the event this informatio n is protected by the Federal Confidentiality of Alcohol and Drug Abuse Patient Records regulations: The Federal rules restrict any use of the information to criminally investigate or prosecute any alcohol or drug abuse patient.[facility] the event this information is protected by the Federal Confidentiality of Alcohol and Drug Abuse Patient Records regulations: The Federal rules restrict any use of the information to criminally investigate or prosecute any alcohol or drug abuse patient.[facility] HospitalIn the event this information is protected by the Federal Confidentiality of Alcohol and Drug Abuse Patient Records regulations: The Federal rules restrict any use of the information to criminally investigate or prosecute any alcohol or drug abuse patient.[facility] HospitalIn the event this information is protected by the Federal Confidentiality of Alcohol and Drug Abuse Patient Records regulations: The Federal rules restrict any use of the information to criminally investigate or prosecute any alcohol or drug abuse patient.[facility] HospitalIn the event this information is protected by the Federal Confidentiality of Alcohol and Drug Abuse Patient Records regulations: The Federal rules restrict any use of the information to criminally investigate or prosecute any alcohol or drug abuse patient.[facility] HospitalIn the event this information is protected by the Federal Confidentiality of Alcohol and Drug Abuse Patient Records regulations: The Federal rules restrict any use of the information to criminally investigate or prosecute any alcohol or drug abuse patient.[facility] HospitalIn the event this information is protected by the Federal Confidentiality of Alcohol and Drug Abuse Patient Records regulations: The Federal rules restrict any use of the information to criminally investigate or prosecute any alcohol or drug abuse patient.[facility] HospitalIn the event this information is protected by the Federal Confidentiality of Alcohol and Drug Abuse Patient Records regulations: The Federal rules restrict any use of the information to criminally investigate or prosecute any alcohol or drug abuse patient.[facility] HospitalIn the event this information is protected by the Federal Confidentiality of Alcohol and Drug Abuse Patient Records regulations: The Federal rules restrict any use of the information to criminally investigate or prosecute any alcohol or drug abuse patient.[facility] HospitalIn the event this information is protected by the Federal Confidentiality of Alcohol and Drug Abuse Patient Records regulations: The Federal rules restrict any use of the information to criminally investigate or prosecute any alcohol or drug abuse patient.[facility] HospitalIn the event this information is protected by the Federal Confidentiality of Alcohol and Drug Abuse Patient Records regulations: The Federal rules restrict any use of the information to criminally investigate or prosecute any alcohol or drug abuse patient.[facility] HospitalIn the event this information is protected by the Federal Confidentiality of Alcohol and Drug Abuse Patient Records regulations: The Federal rules restrict any use of the information to criminally investigate or prosecute any alcohol or drug abuse patient.[facility] HospitalIn the event this information is protected by the Federal Confidentiality of Alcohol and Drug Abuse Patient Records regulations: The Federal rules restrict any use of the information to criminally investigate or prosecute any alcohol or drug abuse patient.[facility] HospitalIn the event this information is protected by the Federal Confidentiality of Alcohol and Drug Abuse Patient Records regulations: The Federal rules restrict any use of the information to criminally investigate or prosecute any alcohol or drug abuse patient.[facility] HospitalIn the event this information is protected by the Federal Confidentiality of Alcohol and Drug Abuse Patient Records regulations: The Federal rules restrict any use of the information to criminally investigate or prosecute any alcohol or drug abuse patient.[facility] HospitalIn the event this information is protected by the Federal Confidentiality of Alcohol and Drug Abuse Patient Records regulations: The Federal rules restrict any use of the information to criminally investigate or prosecute any alcohol or drug abuse patient.[facility] HospitalIn the event this information is protected by the Federal Confidentiality of Alcohol and Drug Abuse Patient Records regulations: The Federal rules restrict any use of the information to criminally investigate or prosecute any alcohol or drug abuse patient.[facility] HospitalIn the event this information is protected by the Federal Confidentiality of Alcohol and Drug Abuse Patient Records regulations: The Federal rules restrict any use of the information to criminally investigate or prosecute any alcohol or drug abuse patient.[facility] HospitalIn the event this information is protected by the Federal Confidentiality of Alcohol and Drug Abuse Patient Records regulations: The Federal rules restrict any use of the information to criminally investigate or prosecute any alcohol or drug abuse patient.[facility] HospitalIn the event this information is protected by the Federal Confidentiality of Alcohol and Drug Abuse Patient Records regulations: The Federal rules restrict any use of the information to criminally investigate or prosecute any alcohol or drug abuse patient.[facility] HospitalIn the event this information is protected by the Federal Confidentiality of Alcohol and Drug Abuse Patient Records regulations: The Federal rules restrict any use of the information to criminally investigate or prosecute any alcohol or drug abuse patient.[facility] HospitalIn the event this information is protected by the Federal Confidentiality of Alcohol and Drug Abuse Patient Records regulations: The Federal rules restrict any use of the information to criminally investigate or prosecute any alcohol or drug abuse patient.[facility] HospitalIn the event this information is protected by the Federal Confidentiality of Alcohol and Drug Abuse Patient Records regulations: The Federal rules restrict any use of the information to criminally investigate or prosecute any alcohol or drug abuse patient.[facility] HospitalIn the event this information is protected by the Federal Confidentiality of Alcohol and Drug Abuse Patient Records regulations: The Federal rules restrict any use of the information to criminally investigate or prosecute any alcohol or drug abuse patient.[facility] HospitalIn the event this information is protected by the Federal Confidentiality of Alcohol and Drug Abuse Patient Records regulations: The Federal rules restrict any use of the information to criminally investigate or prosecute any alcohol or drug abuse patient.[facility] HospitalIn the event this information is protected by the Federal Confidentiality of Alcohol and Drug Abuse Patient Records regulations: The Federal rules restrict any use of the information to criminally investigate or prosecute any alcohol or drug abuse patient.[facility] HospitalIn the event this information is protected by the Federal Confidentiality of Alcohol and Drug Abuse Patient Records regulations: The Federal rules restrict any use of the information to criminally investigate or prosecute any alcohol or drug abuse patient.[facility] HospitalIn the event this information is protected by the Federal Confidentiality of Alcohol and Drug Abuse Patient Records regulations: The Federal rules restrict any use of the information to criminally investigate or prosecute any alcohol or drug abuse patient.[facility] HospitalIn the event this information is protected by the Federal Confidentiality of Alcohol and Drug Abuse Patient Records regulations: The Federal rules restrict any use of the information to criminally investigate or prosecute any alcohol or drug abuse patient.[facility] HospitalIn the event this information is protected by the Federal Confidentiality of Alcohol and Drug Abuse Patient Records regulations: The Federal rules restrict any use of the information to criminally investigate or prosecute any alcohol or drug abuse patient.[facility] HospitalIn the event this information is protected by the Federal Confidentiality of Alcohol and Drug Abuse Patient Records regulations: The Federal rules restrict any use of the information to criminally investigate or prosecute any alcohol or drug abuse patient.[facility] HospitalIn the event this information is protected by the Federal Confidentiality of Alcohol and Drug Abuse Patient Records regulations: The Federal rules restrict any use of the information to criminally investigate or prosecute any alcohol or drug abuse patient.[facility] HospitalIn the event this information is protected by the Federal Confidentiality of Alcohol and Drug Abuse Patient Records regulations: The Federal rules restrict any use of the information to criminally investigate or prosecute any alcohol or drug abuse patient.[facility] HospitalIn the event this information is protected by the Federal Confidentiality of Alcohol and Drug Abuse Patient Records regulations: The Federal rules restrict any use of the information to criminally investigate or prosecute any alcohol or drug abuse patient.[facility] HospitalIn the event this information is protected by the Federal Confidentiality of Alcohol and Drug Abuse Patient Records regulations: The Federal rules restrict any use of the information to criminally investigate or prosecute any alcohol or drug abuse patient.[facility] HospitalIn the event this information is protected by the Federal Confidentiality of Alcohol and Drug Abuse Patient Records regulations: The Federal rules restrict any use of the information to criminally investigate or prosecute any alcohol or drug abuse patient.[facility] HospitalIn the event this information is protected by the Federal Confidentiality of Alcohol and Drug Abuse Patient Records regulations: The Federal rules restrict any use of the information to criminally investigate or prosecute any alcohol or drug abuse patient.[facility] HospitalIn the event this information is protected by the Federal Confidentiality of Alcohol and Drug Abuse Patient Records regulations: The Federal rules restrict any use of the information to criminally investigate or prosecute any alcohol or drug abuse patient.[facility] HospitalIn the event this information is protected by the Federal Confidentiality of Alcohol and Drug Abuse Patient Records regulations: The Federal rules restrict any use of the information to criminally investigate or prosecute any alcohol or drug abuse patient.[facility] HospitalIn the event this information is protected by the Federal Confidentiality of Alcohol and Drug Abuse Patient Records regulations: The Federal rules restrict any use of the information to criminally investigate or prosecute any alcohol or drug abuse patient.[facility] HospitalIn the event this information is protected by the Federal Confidentiality of Alcohol and Drug Abuse Patient Records regulations: The Federal rules restrict any use of the information to criminally investigate or prosecute any alcohol or drug abuse patient.[facility] HospitalIn the event this information is protected by the Federal Confidentiality of Alcohol and Drug Abuse Patient Records regulations: The Federal rules restrict any use of the information to criminally investigate or prosecute any alcohol or drug abuse patient.[facility] HospitalIn the event this information is protected by the Federal Confidentiality of Alcohol and Drug Abuse Patient Records regulations: The Federal rules restrict any use of the information to criminally investigate or prosecute any alcohol or drug abuse patient.[facility] HospitalIn the event this information is protected by the Federal Confidentiality of Alcohol and Drug Abuse Patient Records regulations: The Federal rules restrict any use of the information to criminally investigate or prosecute any alcohol or drug abuse patient.[facility] HospitalIn the event this information is protected by the Federal Confidentiality of Alcohol and Drug Abuse Patient Records regulations: The Federal rules restrict any use of the information to criminally investigate or prosecute any alcohol or drug abuse patient.[facility] HospitalIn the event this information is protected by the Federal Confidentiality of Alcohol and Drug Abuse Patient Records regulations: The Federal rules restrict any use of the information to criminally investigate or prosecute any alcohol or drug abuse patient.[facility] HospitalIn the event this information is protected by the Federal Confidentiality of Alcohol and Drug Abuse Patient Records regulations: The Federal rules restrict any use of the information to criminally investigate or prosecute any alcohol or drug abuse patient.[facility] HospitalIn the event this information is protected by the Federal Confidentiality of Alcohol and Drug Abuse Patient Records regulations: The Federal rules restrict any use of the information to criminally investigate or prosecute any alcohol or drug abuse patient.[facility] HospitalIn the event this information is protected by the Federal Confidentiality of Alcohol and Drug Abuse Patient Records regulations: The Federal rules restrict any use of the information to criminally investigate or prosecute any alcohol or drug abuse patient.[facility] HospitalIn the event this information is protected by the Federal Confidentiality of Alcohol and Drug Abuse Patient Records regulations: The Federal rules restrict any use of the information to criminally investigate or prosecute any alcohol or drug abuse patient.[facility] HospitalIn the event this information is protected by the Federal Confidentiality of Alcohol and Drug Abuse Patient Records regulations: The Federal rules restrict any use of the information to criminally investigate or prosecute any alcohol or drug abuse patient.[facility] HospitalIn the event this information is protected by the Federal Confidentiality of Alcohol and Drug Abuse Patient Records regulations: The Federal rules restrict any use of the information to criminally investigate or prosecute any alcohol or drug abuse patient.[facility] HospitalIn the event this information is protected by the Federal Confidentiality of Alcohol and Drug Abuse Patient Records regulations: The Federal rules restrict any use of the information to criminally investigate or prosecute any alcohol or drug abuse patient.[facility] HospitalIn the event this information is protected by the Federal Confidentiality of Alcohol and Drug Abuse Patient Records regulations: The Federal rules restrict any use of the information to criminally investigate or prosecute any alcohol or drug abuse patient.[facility] HospitalIn the event this information is protected by the Federal Confidentiality of Alcohol and Drug Abuse Patient Records regulations: The Federal rules restrict any use of the information to criminally investigate or prosecute any alcohol or drug abuse patient.[facility] HospitalIn the event this information is protected by the Federal Confidentiality of Alcohol and Drug Abuse Patient Records regulations: The Federal rules restrict any use of the information to criminally investigate or prosecute any alcohol or drug abuse patient.[facility] HospitalIn the event this information is protected by the Federal Confidentiality of Alcohol and Drug Abuse Patient Records regulations: The Federal rules restrict any use of the information to criminally investigate or prosecute any alcohol or drug abuse patient.[facility] HospitalIn the event this information is protected by the Federal Confidentiality of Alcohol and Drug Abuse Patient Records regulations: The Federal rules restrict any use of the information to criminally investigate or prosecute any alcohol or drug abuse patient.[facility] HospitalIn the event this information is protected by the Federal Confidentiality of Alcohol and Drug Abuse Patient Records regulations: The Federal rules restrict any use of the information to criminally investigate or prosecute any alcohol or drug abuse patient.[facility] HospitalIn the event this information is protected by the Federal Confidentiality of Alcohol and Drug Abuse Patient Records regulations: The Federal rules restrict any use of the information to criminally investigate or prosecute any alcohol or drug abuse patient.[facility] HospitalIn the event this information is protected by the Federal Confidentiality of Alcohol and Drug Abuse Patient Records regulations: The Federal rules restrict any use of the information to criminally investigate or prosecute any alcohol or drug abuse patient.[facility] Care Teams (unrecognized sec tion and content) Slip Cover Cutter Relationship Specialty Start Date End Date Mimi Weiss MD PCP - General Family Practice 11/02/15 Slip Cover Cutter Relationship Specialty Start Date End Date Nayana Hoang MD [address] [place] [address] PCP - General Family Practice 08/01/21 Slip Cover Cutter Relationship Specialty Start Date End Date Nayana Hoang MD [address] [place] [address] PCP - General Family Practice 08/01/21 Slip Cover Cutter Relationship Specialty Start Date End Date Nayana Hoang MD [address] [place] [address] PCP - General Family Practice 08/01/21 Slip Cover Cutter Relationship Specialty Start Date End Date Nayana Hoang MD [address] [place] [address] PCP - General Family Medicine 08/01/21 Slip Cover Cutter Relationship Specialty Start Date End Date Nayana Hoang MD [address] [place] [address] PCP - General Family Medicine 08/01/21 Slip Cover Cutter Relationship Specialty Start Date End Date Nayana Hoang MD [address] [place] [address] PCP - General Family Medicine 08/01/21 Slip Cover Cutter Relationship Specialty Start Date End Date Nayana Hoang MD [address] [place] [address] PCP - General Family Medicine 08/01/21 Slip Cover Cutter Relationship Specialty Start Date End Date Nayana Hoang MD [address] [place] [address] PCP - General Family Medicine 08/01/21 Slip Cover Cutter Relationship Specialty Start Date End Date Nayana Hoang MD [address] [place] [address] PCP - General Family Medicine 08/01/21 Slip Cover Cutter Relationship Specialty Start Date End Date Nayana Hoang MD [address] [place] [address] PCP - General Family Medicine 08/01/21 Slip Cover Cutter Relationship Specialty Start Date End Date Nayana Hoang MD [address] [place] [address] PCP - General Family Medicine 08/01/21 Slip Cover Cutter Relationship Specialty Start Date End Date Nayana Hoang MD [address] [place] [address] PCP - General Family Medicine 08/01/21 Slip Cover Cutter Relationship Specialty Start Date End Date Nayana Hoang MD [address] [place] [address] PCP - General Family Medicine 08/01/21 Slip Cover Cutter Relationship Specialty Start Date End Date Nayana Hoang MD [address] [place] [address] PCP - General Family Medicine 08/01/21 Slip Cover Cutter Relationship Specialty Start Date End Date Nayana Hoang MD [address] [place] [address] PCP - General Family Medicine 08/01/21 Slip Cover Cutter Relationship Specialty Start Date End Date Nayana Hoang MD [address] [place] [address] PCP - General Family Medicine 08/01/21 Slip Cover Cutter Relationship Specialty Start Date End Date Nayana Hoang MD [address] [place] [address] PCP - General Family Medicine 08/01/21 Slip Cover Cutter Relationship Specialty Start Date End Date Nayana Hoang MD [address] [place] [address] PCP - General Family Medicine 08/01/21 Slip Cover Cutter Relationship Specialty Start Date End Date Nayana Hoang MD [address] [place] [address] PCP - General Family Medicine 08/01/21 Slip Cover Cutter Relationship Specialty Start Date End Date Nayana Hoang MD [address] [place] [address] PCP - General Family Medicine 08/01/21 Slip Cover Cutter Relationship Specialty Start Date End Date Nayana Hoang MD [address] [place] [address] PCP - General Family Medicine 08/01/21 Slip Cover Cutter Relationship Specialty Start Date End Date Nayana Hoang MD [address] [place] [address] PCP - General Family Medicine 08/01/21 Slip Cover Cutter Relationship Specialty Start Date End Date Nayana Hoang MD [address] [place] [address] PCP - General Family Medicine 08/01/21 Slip Cover Cutter Relationship Specialty Start Date End Date Nayana Hoang MD [address] [place] [address] PCP - General Family Medicine 08/01/21 Slip Cover Cutter Relationship Specialty Start Date End Date Nayana Hoang MD [address] [place] [address] PCP - General Family Medicine 08/01/21 Slip Cover Cutter Relationship Specialty Start Date End Date Nayana Hoang MD [address] [place] [address] PCP - General Family Medicine 08/01/21 Slip Cover Cutter Relationship Specialty Start Date End Date Nayana Hoang MD [address] [place] [address] PCP - General Family Medicine 08/01/21 Slip Cover Cutter Relationship Specialty Start Date End Date Nayana Hoang MD [address] [place] [address] PCP - General Family Medicine 08/01/21 Slip Cover Cutter Relationship Specialty Start Date End Date Nayana Hoang MD [address] [place] [address] PCP - General Family Medicine 08/01/21 Slip Cover Cutter Relationship Specialty Start Date End Date Nayana Hoang MD [address] [place] [address] PCP - General Family Medicine 08/01/21 Slip Cover Cutter Relationship Specialty Start Date End Date Nayana Hoang MD [address] [place] [address] PCP - General Family Medicine 08/01/21 Slip Cover Cutter Relationship Specialty Start Date End Date Nayana Hoang MD [address] [place] [address] PCP - General Family Medicine 08/01/21 Slip Cover Cutter Relationship Specialty Start Date End Date Nayana Hoang MD [address] [place] [address] PCP - General Family Medicine 08/01/21 Slip Cover Cutter Relationship Specialty Start Date End Date Nayana Hoang MD [address] [place] [address] PCP - General Family Medicine 08/01/21 Slip Cover Cutter Relationship Specialty Start Date End Date Nayana Hoang MD [address] [place] [address] PCP - General Family Medicine 08/01/21 Slip Cover Cutter Relationship Specialty Start Date End Date Nayana Hoang MD [address] [place] [address] PCP - General Family Medicine 08/01/21 Slip Cover Cutter Relationship Specialty Start Date End Date Nayana Hoang MD [address] [place] [address] PCP - General Family Medicine 08/01/21 Slip Cover Cutter Relationship Specialty Start Date End Date Nayana Hoang MD [address] [place] [address] PCP - General Family Medicine 08/01/21 Slip Cover Cutter Relationship Specialty Start Date End Date Nayana Hoang MD [address] [place] [address] PCP - General Family Medicine 08/01/21 Team Status: Active Member Role Status Dates NAYANA HOANG Primary Care Provider Active Team Status: Inactive Member Role Status Dates ANEUDY LNIG Primary Care Provider Active Start : June 30, 2024 End: June 30, 2024 Dr. Guerda Null MD Attending Provider Active Start: June 30, 2024 End: June 30, 2024 Dr. Guerda Null MD Referring Provider Active Start: June 30, 2024 End: June 30, 2024 INFORMATION SOURCE (unrecogn ized section and content) DATE CREATED AUTHOR 07/07/2021 [facility] Paty Rodriguez DATE CREATED AUTHOR AUTHOR'S ORGANIZ ATION 02/04/2023 [facility] DATE CREATED AUTHOR AUTHOR'S ORGANIZ ATION 04/28/2023 [facility] DATE CREATED AUTHOR AUTHOR'S ORGANIZ ATION 07/05/2024 [facility] DATE CREATED AUTHOR AUTHOR'S ORGANIZ ATION 07/24/2024 [facility] Reason for Visit (unrecogniz ed section and content) Reason Onset Date Comments Refill Request 08/12/2021 Reason Onset Date Comments Refill Request 10/04/2021 Refill Request 10/06/2021 Reason Onset Date Comments Health Clinician- Other 10/26/2021 Reason Comments 6 Month Exam Neville states her left shoulder is in so much pain and been in therapy with no help Reason Comments Refill Request Reason Onset Date Comments Refill Request 03/20/2022 Reason Onset Date Comments Refill Request 08/15/2021 Refill Request 09/30/2021 Reason Comments Patient Update Reason Comments Appointment Cardiac Clearance Reason Comments Abstract Patient chart update d before appointment on 04/13/2022 Reason Comments Appointment Cancel / Reschedule Reason Onset Date Comments Refill Request 04/17/2022 Reason Comments Radiology NM Reason Onset Date Comments Refill Request 04/21/2022 Reason Comments Surgical Clearance [facility] on 04/27/2022 f or Total Shoulder Arthroplasty (Left) Reason Comments Returning Patient's Call Reason Comments Results Reason Onset Date Comments Refill Request 04/20/2022 Reason Comments Medicare Wellness Exam Pt states no furt her changes over the year other than L shoulder replacement. Reason Comments Follow Up Room 4, has a sore t hroat,cough and both ears that started on Sunday. Reason Comments Patient Question Feeling Tachycardia Reason Comments Patient Question Reason Onset Date Comments Refill Request 03/30/2023 Reason Comments Follow Up Go over lab results and needs paper work filled out for her disability. Metoprolol needs to be changed to taking one tablet daily,no longer taking half pill daily. Reason Onset Date Comments Refill Request 06/21/2023 Reason Onset Date Comments Appointment 12/05/2023 Verified [facility] is scheduled Reason Onset Date Comments Advocacy 01/21/2024 Wellness was res cheduled to 2-15-24 Reason Onset Date Comments Refill Request 01/21/2024 Reason Onset Date Comments Refill Request 02/24/2024 Reason Comments Acute Visit Neville is having a vir tual visit today as she has caught influenza A after her got it and confirmed [facility]. She has a very bad cough and would like some medication to help her deal with it.Fadi Beyer, [facility] 2024 10:13 AM Reason Comments Sore Throat Sore throat x 3 days , right side of face swelling today Goals (unrecognized section and content) Goals may be documented in a n alternate section FOR RECORDS PERTAINING TO PATIENTS WHO ARE OR HAVE BEEN ENROLLED IN A CHEMICAL DEPENDENCY/SUBSTANCEABUSE PROGRAM, SOME INFORMATION MAY BE OMITTED. This clinical summary was aggregated from multiple sources. Caution should be exercised in using it in the provision of clinical care. This summary normalizes information from multiple sources, and as a consequence, information in this document may materially change the coding, format and clinical context of patient data. In addition, data may be omitted in some cases. CLINICAL DECISIONS SHOULD BE BASED ON THE PRIMARY CLINICAL RECORDS. [facility] [employer] provides no warranty or guarantee of the accuracy or completeness of information in this document.
== END | disposition home or self-care (01) ==
PROVIDERS: Referring Provider Urology; Visit Provider Urology
DX: N20.0 Calculus of kidney (principal)
CPT/HCPCS: 74176

== ENCOUNTER → 2024-07-25 | Outpatient (CLI) | payer MEDICARE, SELFPAY ==
--- NOTE | 2024-07-25 16:44 | RAD_ITS ---
EXAM: XR Abdomen, 1 View CLINICAL INDICATION: KUB- STONES TECHNIQUE: Frontal supine view of the abdomen/pelvis. COMPARISON: No relevant prior studies available. FINDINGS: GASTROINTESTINAL TRACT: Fecal retention in the colon consistent with constipation. No dilation. ORGANS: Punctate right nephrolithiasis. BONES/JOINTS: Unremarkable. No acute fracture. RAD/Abdomen Single View IMPRESSION: 1. Punctate right nephrolithiasis. 2. Fecal retention in the colon consistent with constipation. Reading Location: [id number]
[2024-07-25 18:09] LABS: Calcium 9.3 mg/dL (7.6-11.0)
== END | disposition home or self-care (01) ==
LOC: MTLAB 16:43
PROVIDERS: Referring Provider Urology; Visit Provider Urology
DX: N20.0 Calculus of kidney (principal)
CPT/HCPCS: 36415; 74018; 82310